=== PATIENT | female | born 1965 | race Caucasian/White ===

== ENCOUNTER 2017-07-31 17:01 | Emergency (ER) | payer BC ==
[2017-07-31 17:31] LABS: HEMATOCRIT 35.2 % (36.0-47.0); HEMOGLOBIN 10.7 g/dL (12.0-15.5); HGB HCT DIFFERENCE -3.1; MEAN CORPUSCULAR HEMOGLOBIN 19.1 pg (27.0-33.4); MEAN CORPUSCULAR HGB CONC 30.3 g/dL (32.0-36.0); MEAN CORPUSCULAR VOLUME 63 fl (80-97); RED BLOOD COUNT 5.59 10^6/uL (3.72-5.28); RED CELL DISTRIBUTION WIDTH 16.4 % (11.5-14.0); WHITE BLOOD COUNT 11.2 10^3/uL (4.0-10.5)
[2017-07-31 17:47] LABS: ALANINE AMINOTRANSFERASE 25 U/L (9-52); ALBUMIN 3.9 g/dL (3.5-5.0); ALKALINE PHOSPHATASE 91 U/L (38-126); ANION GAP 18 (5-19); ASPARTATE AMINO TRANSFERASE 11 U/L (14-36); BAND NEUTROPHILS % (MANUAL) 8 % (3-5); BASOPHILS % (MANUAL) 0 % (0-2); BILIRUBIN,DIRECT 0.5 mg/dL (0.0-0.4); BILIRUBIN,TOTAL 0.8 mg/dL (0.2-1.3); BLOOD UREA NITROGEN 12 mg/dL (7-20); CALCIUM 9.8 mg/dL (8.4-10.2); CARBON DIOXIDE 24 mmol/L (22-30); CHLORIDE 95 mmol/L (98-107); CREATININE RESULT 0.82 mg/dL (0.52-1.25); EOSINOPHILS % (MANUAL) 0 % (0-6); LYMPHOCYTES % (MANUAL) 0 % (13-45); POTASSIUM 4.4 mmol/L (3.6-5.0); SODIUM 136.6 mmol/L (137-145); TOTAL CELLS COUNTED 100; TOTAL PROTEIN 6.4 g/dL (6.3-8.2)
[2017-07-31 17:49] LABS: ANISOCYTOSIS 1+; HYPOCHROMASIA 2+; MICROCYTOSIS 3+; OVALOCYTES 1+; POIKILOCYTOSIS 1+; POLYCHROMASIA SLIGHT
[2017-07-31 17:58] LABS: GLUCOSE 498 mg/dL (75-110)
[2017-07-31] MEDS ORDERED: NORMAL SALINE 1000 ML 1,000 ML IV ONE ×3 (18:38→22:32)
--- NOTE | 2017-07-31 18:42 | ER Document Report ---
ED General <MIN SHEFFIELD - Last Filed: 08/01/17 05:31> - General Mode of Arrival: Wheelchair Information source: Patient <TATI MONTOYAMARY - Last Filed: 08/01/17 18:12> - General Chief Complaint: General Weakness Stated Complaint: BLOOD SUGAR ISSUE Time Seen by Provider: 07/31/17 18:28 Notes: This 51-year-old female patient who takes oral hypoglycemics reports a 5 week or more history of nausea, vomiting, and diarrhea every day throughout the day. She reports she drinks lots of fluids without vomiting but vomits whenever she eats. She also reports that she vomits whenever she tries to swallow her glyburide or metformin. Her blood sugars have been running quite high this entire time. When asked why she has only now come for care, she states because she is stubborn. She has not tried to see her primary care provider. (MIN SHEFFIELD) Patient is a 51 year old female with Type 2 Diabetes presents to the emergency department via EMS complaining of being extremely weak. Patient states that she has been vomiting and has had diarrhea for the past month. Patient states that she decided to come in today because she "felt like she was going to ". Patient states that she she was shaking and could not stand up. Patient states that she also has had an extremely high blood sugar and has been thirsty. Patient states that she has lost around 230 lbs over the years to better control her diabetes. EMS states patients heart rates was 155 and blood sugar was 505. EMS proceeded to give the patient 4 mLs of Zofran and 1L of saline. Patients PCP is Dr. Dia. (PRAVIN MONTOYA) Past Medical History - General Information source: Patient - Social History Smoking Status: Never Smoker Cigarette use (# per day): No Chew tobacco use (# tins/day): No Smoking Education Provided: No Frequency of alcohol use: None Family History: Reviewed & Not Pertinent Past Surgical History: Reports: Hx Tubal Ligation <PRAVIN MONTOYA - Last Filed: 08/01/17 18:12> Review of Systems - Review of Systems Constitutional: See HPI, Weakness EENT: No symptoms reported Cardiovascular: No symptoms reported Respiratory: No symptoms reported Gastrointestinal: See HPI, Diarrhea, Vomiting, Other - increased fluid intake Genitourinary: No symptoms reported Female Genitourinary: No symptoms reported Musculoskeletal: No symptoms reported Skin: No symptoms reported Hematologic/Lymphatic: No symptoms reported Neurological/Psychological: No symptoms reported -: Yes All other systems reviewed and negative <PRAVIN MONTOYA - Last Filed: 08/01/17 18:12> Physical Exam <NETTIEMIN Feldman - Last Filed: 08/01/17 05:31> - General General appearance: Appears well, Alert In distress: None - HEENT Head: Normocephalic, Atraumatic Conjunctiva: Normal Pupils: PERRL Mucous membranes: Dry - Respiratory Respiratory status: No respiratory distress Breath sounds: Normal - Cardiovascular Rhythm: Tachycardia Heart sounds: Normal auscultation - Abdominal Inspection: Obese Distension: No distension Bowel sounds: Normal Tenderness: Nontender Organomegaly: No organomegaly - Back Back: Normal - Extremities General upper extremity: Normal inspection, Normal ROM General lower extremity: Normal inspection, Normal ROM - Neurological Neuro grossly intact: Yes Cognition: Normal Orientation: AAOx4 Anu Coma Scale Eye Opening: Spontaneous Anu Coma Scale Verbal: Oriented Anu Coma Scale Motor: Obeys Commands [place] Coma Scale Total: 15 Speech: Normal - Psychological Associated symptoms: Normal affect, Normal mood - Skin Skin Temperature: Warm Skin Moisture: Dry <PRAVIN MONTOYA - Last Filed: 08/01/17 18:12> - Vital signs Vitals: Resp BP Pulse Ox 18 141/72 H 93 07/31/17 17:09 07/31/17 17:09 07/31/17 17:09 Course - Laboratory Result Diagrams: 07/31/17 17:10 07/31/17 17:10 <MIN SHEFFIELD - Last Filed: 08/01/17 05:31> - Laboratory Result Diagrams: 07/31/17 17:10 07/31/17 17:10 <JANTATIMARY - Last Filed: 08/01/17 18:12> - Re-evaluation Re-evalutation: 07/31/17 22:02 The patient has been here about 5 hours now, has not had any diarrhea or vomiting. She has been drinking plenty of fluids and is urinating now. She did get 3 L of normal saline IV. She did get 4 units of regular insulin and we are checking an Accu-Chek now. 08/01/17 02:37 The patient did eventually have some diarrheal stool, there were no WBCs and negative C. difficile toxins. (MIN SHEFFIELD) - Vital Signs Vital signs: Temp Pulse Resp BP Pulse Ox 98.1 F 142 H 23 H 142/73 H 95 08/01/17 03:14 07/31/17 17:11 08/01/17 03:01 08/01/17 03:01 08/01/17 03:01 - Laboratory Laboratory results interpreted by me: 07/31/17 07/31/17 07/31/17 17:10 17:10 17:10 WBC 11.2 H RBC 5.59 H Hgb 10.7 L Hct 35.2 L MCV 63 L MCH 19.1 L MCHC 30.3 L RDW 16.4 H Seg Neuts % (Manual) 91 H Band Neutrophils % 8 H Lymphocytes % (Manual) 0 L Monocytes % (Manual) 1 L Abs Neuts (Manual) 11.1 H Abs Lymphs (Manual) 0.0 L Sodium 136.6 L Chloride 95 L Glucose 498 H* POC Glucose Hemoglobin A1c % Magnesium 1.2 L* Direct Bilirubin 0.5 H AST 11 L Creatine Kinase 22 L Urine Glucose (UA) Urine Ketones 07/31/17 07/31/17 07/31/17 17:10 17:52 21:25 WBC RBC Hgb Hct MCV MCH MCHC RDW Seg Neuts % (Manual) Band Neutrophils % Lymphocytes % (Manual) Monocytes % (Manual) Abs Neuts (Manual) Abs Lymphs (Manual) Sodium Chloride Glucose POC Glucose 454 H* Hemoglobin A1c % 12.2 H Magnesium Direct Bilirubin AST Creatine Kinase Urine Glucose (UA) >=500 H Urine Ketones 80 H 07/31/17 22:01 WBC RBC Hgb Hct MCV MCH MCHC RDW Seg Neuts % (Manual) Band Neutrophils % Lymphocytes % (Manual) Monocytes % (Manual) Abs Neuts (Manual) Abs Lymphs (Manual) Sodium Chloride Glucose POC Glucose 366 H Hemoglobin A1c % Magnesium Direct Bilirubin AST Creatine Kinase Urine Glucose (UA) Urine Ketones Critical Care Note - Critical Care Note Total time excluding time spent on procedures (mins): 40 <MIN SHEFFIELD - Last Filed: 08/01/17 05:31> Discharge <MIN SHEFFIELD - Last Filed: 08/01/17 05:31> <PRAVIN MONTOYA - Last Filed: 08/01/17 18:12> - Discharge Clinical Impression: Nausea, vomiting and diarrhea, Diabetic gastroparesis associated with type 2 diabetes mellitus, Hypomagnesemia, Poorly controlled diabetes mellitus Hyperglycemia due to type 2 diabetes mellitus Qualifiers: Diabetes mellitus long-term insulin use: without long-term use Qualified Code(s ): E11.65 - Type 2 diabetes mellitus with hyperglycemia Condition: Stable Disposition: HOME, SELF-CARE Additional Instructions: Your blood sugars have been running quite high for several months. The diarrhea did not have any signs of an infectious cause. Your vomiting may be due to diabetic gastroparesis. Take the Reglan as prescribed for nausea, continue to take your regular medications, but cut the tablets into small pieces and take over a period of time with fluids. Follow-up with Dr. Dia Wednesday, take the copies of the lab work with you. RETURN TO THE EMERGENCY ROOM IF ANY NEW OR WORSENING SYMPTOMS. Prescriptions: Metoclopramide HCl [Reglan 10 mg Tablet] 1 tab PO ASDIR PRN #25 tablet PRN Reason: Referrals: JAZMIN DIA MD [Primary Care Provider] - 08/02/17 Scribe Attestation: 07/31/17 20:02 I personally performed the services described in the documentation, reviewed and edited the documentation which was dictated to the scribe in my presence, and it accurately records my words and actions. (MIN SHEFFIELD) Scribe Documentation - Scribe Written by Sen:: Sen Becerra, 07/31/2017 19:15 acting as scribe for :: Nettie <PRAVIN MONTOYA - Last Filed: 08/01/17 18:12>
[2017-07-31 18:46] LABS: ADD ON TESTING BLD IN LAB ACKNOWLEDGE
[2017-07-31 18:59] LABS: CREATINE KINASE 22 U/L (30-135)
[2017-07-31 19:11] LABS: MAGNESIUM 1.2 mg/dL (1.6-2.3)
[2017-07-31] MEDS ORDERED: MAGNESIUM SULFATE INJ 8 MEQ/2 ML IV ONE (19:28)
[2017-07-31] MEDS ORDERED: INSULIN REG, HUMAN 100 UNIT/ML 3 ML VIAL (PYX) IV ONE (19:43)
[2017-07-31] MEDS ORDERED: MAGNESIUM SULFATE/D5W 1 GM/100 ML RTUPB IV ONE ×2 (20:00→22:32)
[2017-07-31 21:56] LABS: APPEARANCE,URINE CLEAR; BILIRUBIN,URINE NEGATIVE (NEGATIVE); GLUCOSE, URINE >=500 mg/dL (NEGATIVE); KETONES,URINE 80 mg/dL (NEGATIVE); LEUKOCYTE ESTERASE,URINE NEGATIVE (NEGATIVE); NITRITE,URINE NEGATIVE (NEGATIVE); PROTEIN,URINE NEGATIVE (NEGATIVE); URINE SPECIFIC GRAVITY 1.028; UROBILINOGEN,URINE NEGATIVE mg/dL (<2.0)
[2017-07-31] MEDS ORDERED: INSULIN GLARGINE,HUM.REC.ANLOG 1,000 UNIT/10 ML UNIT SUBCUT ONE (22:29)
[2017-07-31] MEDS ORDERED: METOCLOPRAMIDE HCL INJ/PF 10 MG/2 ML SDV IV ONE (22:30)
[2017-07-31] MEDS ORDERED: METFORMIN HCL 850 MG TABLET PO ONE (22:31)
[2017-07-31] MEDS ORDERED: METFORMIN HCL 850 MG TABLET ONE (23:20)
[2017-08-01 03:04] VITALS: BP 142/73
--- NOTE | 2017-08-01 09:15 | EKG REPORT ---
SEVERITY:- ABNORMAL ECG - SINUS TACHYCARDIA LEFT ANTERIOR FASCICULAR BLOCK : Confirmed by: Augusta Clark 01-Aug-2017 09:14:43
== END 2017-08-01 03:12 | disposition home or self-care (01) ==
LOC: ER 17:01
DX: R11.2 Nausea with vomiting, unspecified (principal); E11.65 Type 2 diabetes mellitus with hyperglycemia; E11.43 Type 2 diabetes mellitus with diabetic autonomic (poly)neuropathy; K31.84 Gastroparesis; E83.42 Hypomagnesemia; R19.7 Diarrhea, unspecified; R53.1 Weakness; E66.9 Obesity, unspecified; Z79.84 Long term (current) use of oral hypoglycemic drugs; Z79.4 Long term (current) use of insulin
CPT/HCPCS: 93005; 99291; 96361; 96375; 96365; 36415; 87045; 89055; 87205; 82962; 82550; 83735; 85025; 82272; 80053; 81001; 84484; 83036; 87493; 93010; J1815 ×2; J2765; J3490; J3475; J7030

== ENCOUNTER → 2018-01-14 | Outpatient (CLI) | payer BC ==
--- NOTE | 2018-01-14 17:07 | WOMENS IMAGING REPORT ---
EXAM DESCRIPTION: BILAT SCREENING MAMMO W/CAD COMPLETED DATE/TIME: 01/14/2018 2:46 pm REASON FOR STUDY: ROUTINE SCREENING;Z12.31 Z12.31 ENCNTR SCREEN MAMMOGRAM FOR MALIGNANT NEOPLASM OF [place]UB[place] COMPARISON: Multiple since 2009 TECHNIQUE: Standard craniocaudal and mediolateral oblique views of each breast recorded using YouNoodlea l acquisition. LIMITATIONS: None. FINDINGS: Findings present which are benign by mammographic criteria. No suspicious masses, calcifi cations or architectural distortion. Pertinent benign findings: Stable bilateral benign parenchymal and skin calcifications. Read with the assistance of CAD. .[facility] - R2 Cenova Version 1.3 .[facility] - R2 Cenova Version 1.3 .[facility] - R2 Cenova Version 2.4 .[facility] Cenova Version 2.4 .[facility] - R2 Corrugator Operator Helper Version 9.2 Benign mammographic findings may include one or more of the following: Smooth masses, popcorn/rim/co arse calcifications, asymmetries, post-procedure changes, and lesions with long-standing stability. IMPRESSION: BENIGN MAMMOGRAPHIC FINDINGS. BIRADS 2 BREAST DENSITY: b. There are scattered areas of fibroglandular density. BIRAD: 2 BENIGN FINDING(S) RECOMMENDATION: ROUTINE SCREENING Please continue yearly bilateral screening mammography in January 2019 COMMENT: The patient has been notified of the results by letter per MQSA requirements. Additional no tification policies are in place for contacting patient with suspicious or incomplete findings. Quality ID #[id number]: The [employer] recommends an annual screening mammogram for women aged 40 years or over. This facility utilizes a reminder system to ensure that all patients receive reminder letters, and/or direct phone calls for appointments. This includes reminders for routine scr eening mammograms, diagnostic mammograms, or other Breast Imaging Interventions when appropriate. Th is patient will be placed in the appropriate reminder system. The [employer] (ACR) has developed recommendations for screening MRI of the breast s in certain patient populations, to be used in conjunction with mammography. Breast MRI surveillanc e may be appropriate for women with more than 20% lifetime risk of developing breast cancer as deter mined by genetic testing, significant family history of the disease, or history of mantle radiation f or Hodgkins Disease. ACR Practice Guidelines 2008. TECHNICAL DOCUMENTATION: FINDING NUMBER: (1) ASSESSMENT: (1) JOB ID: [id number] APS- All Rights Reserved Reading location - IP/workstation name: [email or web address]
== END ==
LOC: WI 14:22
PROVIDERS: ATTEND Family Medicine
DX: Z12.31 Encounter for screening mammogram for malignant neoplasm of breast (principal)
CPT/HCPCS: 77067

== ENCOUNTER 2018-01-27 10:08 | Emergency (ER) | payer BC ==
[2018-01-27] MEDS ORDERED: NORMAL SALINE 1000 ML 1,000 ML IV ONE ×2 (10:41→12:03)
--- NOTE | 2018-01-27 10:44 | ER Document Report ---
ED Medical Screen (RME) - General Chief Complaint: High Blood Sugar Stated Complaint: BLOOD SUGAR ISSUES Time Seen by Provider: 01/27/18 10:36 Mode of Arrival: Ambulatory Information source: Patient, Relative, [facility] Records Notes: 52-year-old female with a history of hypertension, hyperlipidemia and diabetes presents with concern for elevated blood sugar. Patient reports that for 2 days in a row she has had elevated blood sugar readings. She states today when checked it was 355. She was at work when she became diaphoretic and felt like she was going to pass out. Patient currently complaining of head pressure. She states she has been compliant with her Lantus 42 units in the morning. She states that she has not had any recent illnesses. I have greeted and performed a rapid medical assessment of the patient. A comprehensive evaluation and assessment will be performed by another ED provider. Medical decision making, lab review/xrays if performed will be reviewed by the ED provider assuming care of the patient. PHYSICAL EXAMINATION: GENERAL: Well-appearing, well-nourished and in no acute distress. HEAD: Atraumatic, normocephalic. EYES: Pupils equal round extraocular movements intact, conjunctiva are normal. ENT: Nares patent NECK: Normal range of motion Cardiac: RRR no murmurs LUNGS: No respiratory distress Musculoskeletal: Normal range of motion NEUROLOGICAL: Normal speech, normal gait. PSYCH: Normal mood, normal affect. SKIN: Warm, Dry, normal turgor, no rashes or lesions noted. TRAVEL OUTSIDE OF THE [place] IN LAST 30 DAYS: No - HPI Onset: Just prior to arrival Onset/Duration: Sudden Quality of pain: Pressure Associated Symptoms: Headache, Sweating Exacerbated by: Denies Relieved by: Denies Similar symptoms previously: Yes Recently seen / treated by doctor: Yes - Related Data Smoking: Non-smoker Frequency of alcohol use: None Drug Abuse: None Allergies/Adverse Reactions: codeine Allergy (Verified 01/27/18 10:12) Penicillins Allergy (Verified 01/27/18 10:12) Past Medical History - Social History Chew tobacco use (# tins/day): No Frequency of alcohol use: None Drug Abuse: None - Past Medical History Cardiac Medical History: Reports: Hx Hypercholesterolemia, Hx Hypertension Endocrine Medical History: Reports: Hx Diabetes Mellitus Type 2 Renal/ Medical History: Denies: Hx Peritoneal Dialysis Past Surgical History: Reports: Hx Tubal Ligation Physical Exam - Vital signs Vitals: Temp Pulse Resp BP Pulse Ox 98.1 F 128 H 20 102/54 L 100 01/27/18 10:26 01/27/18 10:01/27/18 10:01/27/18 10:01/27/18 10:26 Course - Vital Signs Vital signs: Temp Pulse Resp BP Pulse Ox 98.1 F 128 H 20 102/54 L 100 01/27/18 10:26 01/27/18 10:26 01/27/18 10:26 01/27/18 10:01/27/18 10:26
[2018-01-27 11:10] LABS: VENOUS BLOOD BASE EXCESS -2.8 mmol/L; VENOUS BLOOD HCO3 23.3 mmol/L (20-32); VENOUS BLOOD PH 7.32 (7.30-7.42)
[2018-01-27 11:11] LABS: ABSOLUTE BASOPHILS # (AUTO) 0.1 10^3/uL (0.0-0.2); ABSOLUTE LYMPHOCYTES (AUTO) 1.3 10^3/uL (0.5-4.7); ABSOLUTE MONOCYTES (AUTO) 0.5 10^3/uL (0.1-1.4); ABSOLUTE NEUT (AUTO) 8.4 10^3/uL (1.7-8.2); BASOPHILS % (AUTO) 0.9 % (0-2); EOSINOPHILS % (AUTO) 0.3 % (0-6); HEMATOCRIT 34.8 % (36.0-47.0); HEMOGLOBIN 10.7 g/dL (12.0-15.5); LYMPHOCYTES % (AUTO) 12.9 % (13-45); MEAN CORPUSCULAR HEMOGLOBIN 19.5 pg (27.0-33.4); MEAN CORPUSCULAR HGB CONC 30.7 g/dL (32.0-36.0); MONOCYTES % (AUTO) 5.3 % (3-13); PLATELET COUNT 330 10^3/uL (150-450); RED BLOOD COUNT 5.47 10^6/uL (3.72-5.28); RED CELL DISTRIBUTION WIDTH 16.8 % (11.5-14.0); SEGMENTED NEUTROPHILS % (AUTO) 80.6 % (42-78); TOTAL CELLS COUNTED % (AUTO) 100 %; WHITE BLOOD COUNT 10.4 10^3/uL (4.0-10.5)
[2018-01-27 11:12] LABS: MEAN CORPUSCULAR VOLUME 64 fl (80-97)
[2018-01-27] MEDS ORDERED: CEFTRIAXONE INJ 1000 MG VIAL IV ONE (11:21)
[2018-01-27] MEDS ORDERED: SULFAMETHOXAZOLE/TRIMETHOPRIM 800-160 MG TABLET PO ONE (11:22)
--- NOTE | 2018-01-27 11:24 | ER Document Report ---
ED Blood Sugar Problem - General Chief Complaint: High Blood Sugar Stated Complaint: BLOOD SUGAR ISSUES Time Seen by Provider: 01/27/18 10:36 Mode of Arrival: Ambulatory Information source: Patient Notes: Patient reports a 2 day history of elevated blood sugar. Patient states today she has had a headache and felt lightheaded. Patient denies any fever nausea or vomiting. Patient states that her blood sugar was 350 yesterday. Patient states that her blood sugar is normally well controlled in the low 100s. Patient additionally complains of an abscess to the left labia for the past 3 days that started to drain yesterday. Patient denies any fever. TRAVEL OUTSIDE OF THE [place] IN LAST 30 DAYS: No - HPI Onset: Other - 2 days Onset/Duration: Persistent Quality of pain: Achy Pain Level: 3 Associated symptoms: Dizziness, Weakness. 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 denies: Fever, Recent illness EENT: No symptoms reported Cardiovascular: Lightheaded. denies: Chest pain Respiratory: No symptoms reported. denies: Cough, Short of breath Gastrointestinal: No symptoms reported. denies: Abdominal pain, Nausea, Vomiting Genitourinary: No symptoms reported Female Genitourinary: No symptoms reported Musculoskeletal: No symptoms reported. denies: Back pain Skin: Other - Abscess to left labia Hematologic/Lymphatic: No symptoms reported Neurological/Psychological: No symptoms reported Physical Exam - Vital signs Vitals: Temp Pulse Resp BP Pulse Ox 98.1 F 128 H 20 102/54 L 100 01/27/18 10:26 01/27/18 10:26 01/27/18 10:26 01/27/18 10:26 01/27/18 10:26 - General General appearance: Appears well, Alert In distress: None - HEENT Head: Normocephalic, Atraumatic Eyes: Normal Conjunctiva: Normal Nasal: Normal Mouth/Lips: Normal Mucous membranes: Normal Neck: Normal - Respiratory Respiratory status: No respiratory distress Chest status: Nontender Breath sounds: Normal. No: Rales, Rhonchi, Stridor, Wheezing Chest palpation: Normal - Cardiovascular Rhythm: Tachycardia Heart sounds: S1 appreciated, S2 appreciated Murmur: No - Abdominal Inspection: Normal Distension: No distension Tenderness: Nontender - Back Back: Normal, Nontender - Extremities General upper extremity: Normal inspection, Normal ROM General lower extremity: Normal inspection, Normal ROM - Neurological Neuro grossly intact: Yes Cognition: Normal Anu Coma Scale Eye Opening: Spontaneous [place] Coma Scale Verbal: Oriented [place] Coma Scale Motor: Obeys Commands Anu Coma Scale Total: 15 - Psychological Associated symptoms: Normal affect, Normal mood - Skin Skin Temperature: Warm Skin Moisture: Dry Skin irregularity: other - Abscess to the left labia, skin with surrounding erythema concerning for developing cellulitis, skin indurated with open center consistent with patient's history of drainage from the lesion Irregularity with: Swelling, Tenderness, Inflammation Course - Re-evaluation Re-evalutation: 01/27/18 12:50 Discussed patient's diagnostic workup at this time. Patient's first liter of IV fluids infusing. Patient denies any previous history of any renal function abnormality. Patient states she does have an order for outpatient labs to follow-up with her primary doctor. 01/27/18 14:10 Urinalysis reviewed, patient is currently on her menstrual cycle and had a clean -catch specimen collected. Patient denies any urinary symptoms. 01/27/18 14:13 Suspect that patient's had poor glycemic control due to abscess. Abscess has mild surrounding erythema concerning for developing cellulitis. Area is indurated, no central area of fluctuance. Abscess does have the appearance that it has recently drained and does appear to be improving. Patient nontoxic in appearance. Good return precautions given. - Vital Signs Vital signs: Temp Pulse Resp BP Pulse Ox 97.9 F 98 18 99/52 L 100 01/27/18 14:31 01/27/18 14:31 01/27/18 14:31 01/27/18 14:31 01/27/18 14:31 - Laboratory Result Diagrams: 01/27/18 10:50 01/27/18 10:50 Laboratory results interpreted by me: 01/27/18 01/27/18 01/27/18 10:31 10:50 10:50 RBC 5.47 H Hgb 10.7 L Hct 34.8 L MCV 64 L MCH 19.5 L MCHC 30.7 L RDW 16.8 H Seg Neutrophils % 80.6 H Lymphocytes % 12.9 L Absolute Neutrophils 8.4 H BUN 31 H Creatinine 1.34 H Est GFR ( Amer) 51 L Est GFR (Non-Af Amer) 42 L Glucose 373 H POC Glucose 355 H Urine Glucose (UA) Urine Blood Ur Leukocyte Esterase 01/27/18 13:20 RBC Hgb Hct MCV MCH MCHC RDW Seg Neutrophils % Lymphocytes % Absolute Neutrophils BUN Creatinine Est GFR ( Amer) Est GFR (Non-Af Amer) Glucose POC Glucose Urine Glucose (UA) 150 H Urine Blood LARGE H Ur Leukocyte Esterase TRACE H Discharge - Discharge Clinical Impression: Elevated blood sugar, Abscess, Abnormal renal function test Anemia Qualifiers: Anemia type: unspecified type Qualified Code(s): D64.9 - Anemia, unspecified Condition: Stable Disposition: HOME, SELF-CARE Instructions: Abscess ([facility]), Anemia ([facility]), Cephalexin ([facility]), Hyperglycemia ([facility] ), Trimethoprim-Sulfa ([facility]) Additional Instructions: Return immediately for any new or worsening symptoms Followup with your primary care provider, call tomorrow to make a followup appointment Your renal function test was abnormal today. You will need to see her primary doctor to have this test rechecked. Be sure to stay well-hydrated. Prescriptions: Cephalexin Monohydrate [Keflex 500 mg Capsule] 500 mg PO Q6H 7 Days capsule Sulfamethoxazole/Trimethoprim [Bactrim Ds Tablet] 1 each PO BID #20 tablet Forms: Return to Work Referrals: JAZMIN ANAYA MD [Primary Care Provider] - Follow up tomorrow
[2018-01-27 11:38] LABS: ANISOCYTOSIS 1+; HYPOCHROMASIA 2+; OVALOCYTES 1+; PLATELET COMMENT ADEQUATE; POIKILOCYTOSIS 1+
[2018-01-27 11:41] LABS: ALANINE AMINOTRANSFERASE 28 U/L (9-52); ALBUMIN 4.6 g/dL (3.5-5.0); ALKALINE PHOSPHATASE 90 U/L (38-126); ANION GAP 14 (5-19); ASPARTATE AMINO TRANSFERASE 23 U/L (14-36); BILIRUBIN,DIRECT 0.3 mg/dL (0.0-0.4); BILIRUBIN,TOTAL 0.5 mg/dL (0.2-1.3); BLOOD UREA NITROGEN 31 mg/dL (7-20); CALCIUM 10.1 mg/dL (8.4-10.2); CARBON DIOXIDE 26 mmol/L (22-30); CHLORIDE 98 mmol/L (98-107); GLUCOSE 373 mg/dL (75-110); POTASSIUM 4.2 mmol/L (3.6-5.0); SODIUM 137.5 mmol/L (137-145); TOTAL PROTEIN 7.7 g/dL (6.3-8.2)
[2018-01-27] MEDS ORDERED: INSULIN REG, HUMAN 100 UNIT/ML 3 ML VIAL (PYX) SUBCUT ONE (12:03)
[2018-01-27 13:59] LABS: APPEARANCE,URINE SLIGHTLY-CLOUDY; BILIRUBIN,URINE NEGATIVE (NEGATIVE); COLOR,URINE YELLOW; GLUCOSE, URINE 150 mg/dL (NEGATIVE); KETONES,URINE NEGATIVE (NEGATIVE); LEUKOCYTE ESTERASE,URINE TRACE (NEGATIVE); NITRITE,URINE NEGATIVE (NEGATIVE); PROTEIN,URINE NEGATIVE (NEGATIVE); URINE SPECIFIC GRAVITY 1.008; UROBILINOGEN,URINE NEGATIVE mg/dL (<2.0)
[2018-01-27 14:34] VITALS: BP 99/52
[2018-01-28 09:02] LABS: PATH REVIEW PATHOLOGIST REVIEWED
== END 2018-01-27 14:38 | disposition home or self-care (01) ==
LOC: ER 10:08
DX: E11.65 Type 2 diabetes mellitus with hyperglycemia (principal); N76.4 Abscess of vulva; D64.9 Anemia, unspecified; R94.4 Abnormal results of kidney function studies; I10 Essential (primary) hypertension; R00.0 Tachycardia, unspecified; R51 Headache; R42 Dizziness and giddiness; R53.1 Weakness; Z88.0 Allergy status to penicillin; Z88.5 Allergy status to narcotic agent
CPT/HCPCS: 99284; 96361; 96365; 36415; 82962; 85025; 80053; 81001; 82803; J1815; J0696; J7030

== ENCOUNTER 2019-08-02 07:44 | Emergency (ER) | payer BC ==
[2019-08-02] MEDS ORDERED: NORMAL SALINE 1000 ML 1,000 ML IV ONE ×2 (08:09→09:59)
[2019-08-02] MEDS ORDERED: ONDANSETRON 4 MG TAB.RAPDIS PO ONE (08:18)
--- NOTE | 2019-08-02 08:26 | ER Document Report ---
ED General - General Chief Complaint: Flu Symptoms Stated Complaint: FLU SYMPTOMS/BLOOD SUGAR ISSUES Time Seen by Provider: 08/02/19 08:06 Primary Care Provider: JAZMIN ANAYA MD [Primary Care Provider] - Follow up in 3-5 days Notes: 53-year-old female with past medical history of diabetes on insulin presents for flulike symptoms for 2 weeks. Patient states her granddaughter had similar symptoms and "passed it on to her". Patient states she has nausea/vomiting/diarrhea, generalized body aches, nasal/chest congestion, coughing with phlegm, fever. Last emesis this morning. T-max 102 approximately 1 week ago. Patient has not taken any medication for any of her symptoms. Patient also reports that her blood sugar was high today. Patient denies any abdominal pain, hematuria, dysuria, frequency or blood in stool/emesis. TRAVEL OUTSIDE OF THE [place] IN LAST 30 DAYS: No - Related Data Allergies/Adverse Reactions: codeine Allergy (Verified 01/27/18 10:12) orange juice Allergy (Verified 08/02/19 11:00) Penicillins Allergy (Verified 01/27/18 10:12) Sulfa (Sulfonamide Antibiotics) Allergy (Verified 08/02/19 08:25) Past Medical History - Social History Smoking Status: Current Every Day Smoker Family History: Reviewed & Not Pertinent - Past Medical History Cardiac Medical History: Reports: Hx Hypercholesterolemia, Hx Hypertension Endocrine Medical History: Reports: Hx Diabetes Mellitus Type 2 Renal/ Medical History: Denies: Hx Peritoneal Dialysis Past Surgical History: Reports: Hx Tubal Ligation Review of Systems - Review of Systems Notes: Constitutional: Positive for fever. HENT: Positive for sore throat. Eyes: Negative for visual changes. Cardiovascular: Negative for chest pain. Respiratory: Positive for cough. Negative for shortness of breath. Gastrointestinal: Positive for nausea, vomiting, diarrhea. Negative for abdominal pain. Genitourinary: Negative for dysuria. Musculoskeletal: Positive for generalized body aches. Negative for back pain. Skin: Negative for rash. Neurological: Positive for headache. Negative for weakness or numbness. 10 point ROS negative except as marked above and in HPI. Physical Exam - Vital signs Vitals: Temp Pulse Resp BP Pulse Ox 97.8 F 124 H 20 99/62 L 95 08/02/19 07:48 08/02/19 07:48 08/02/19 07:48 08/02/19 07:48 08/02/19 07:48 - Notes Notes: GENERAL: Well-appearing, well-nourished and in no acute distress. HEAD: Atraumatic, normocephalic. EYES: Pupils equal round and reactive to light, extraocular movements intact, sclera anicteric, conjunctiva are normal. ENT: TMs normal, nares patent, oropharynx clear without exudates/erythema. No trismus. No muffled voice. Uvula midline without swelling. No tonsillar hypertrophy. Moist mucous membranes. NECK: Normal range of motion, supple without lymphadenopathy or JVD. LUNGS: Breath sounds clear to auscultation bilaterally and equal. No wheezes rales or rhonchi. Dry cough. HEART: Tachycardic. No murmurs, rubs or gallops. ABDOMEN: Soft, nontender. No guarding, no rebound. No masses appreciated. EXTREMITIES: Normal range of motion, no pitting or edema. No clubbing or cyanosis. NEUROLOGICAL: Cranial nerves II through XII grossly intact. Normal speech, normal gait. PSYCH: Normal mood, normal affect. SKIN: Warm, Dry, normal turgor, no rashes or lesions noted. Course - Re-evaluation Re-evalutation: 08/02/19 53 y/o female presents with flu like symptoms for 2 weeks. Pt has sick contacts at home. Pt also has elevated blood sugar. DM on insulin (Lantus). Nontoxic, well appearing. Abdomen soft, nontender. PE otherwise unremarkable. Pt is tachycardic and mildly hypotensive. Workup to include CBC, CMP, lipase, flu test, UA, CXR, EKG, and lactic initiated. 1 bolus of NS ordered and zofran. 08/02/19 10:25 Accucheck 264 after 1 L of NS. Insulin 5 units ordered. 08/02/19 12:29 Vitals currently: HR 98, SpO2 97% on RA, Accucheck 242. 08/02/19 12:32 Discussed results with pt and pt's . Return precautions discussed/given. Close follow up given with PCP. All questions/concerns addressed prior to discharge. - Vital Signs Vital signs: Temp Pulse Resp BP Pulse Ox 98.6 F 124 H 14 117/73 99 08/02/19 10:40 08/02/19 07:48 08/02/19 10:31 08/02/19 10:31 08/02/19 11:03 - Laboratory Result Diagrams: 08/02/19 08:34 08/02/19 08:34 Laboratory results interpreted by me: 08/02/19 08/02/19 08/02/19 07:51 08:34 08:34 WBC 16.4 H RBC 5.70 H Hgb 10.7 L Hct 35.0 L MCV 61 L MCH 18.8 L MCHC 30.7 L RDW 16.6 H Lymph % (Auto) 6.7 L Absolute Neuts (auto) 14.3 H Seg Neutrophils % 87.0 H VBG pH Sodium 136.1 L Potassium 3.0 L* Chloride 92 L BUN 34 H Creatinine 1.58 H Est GFR ( Amer) 42 L Est GFR (MDRD) Non-Af 34 L Glucose 281 H POC Glucose 249 H Urine Glucose (UA) Urine Ketones 08/02/19 08/02/19 08/02/19 08:34 10:19 10:22 WBC RBC Hgb Hct MCV MCH MCHC RDW Lymph % (Auto) Absolute Neuts (auto) Seg Neutrophils % VBG pH 7.45 H Sodium Potassium Chloride BUN Creatinine Est GFR ( Amer) Est GFR (MDRD) Non-Af Glucose POC Glucose 264 H Urine Glucose (UA) >=500 H Urine Ketones 20 H 08/02/19 12:26 WBC RBC Hgb Hct MCV MCH MCHC RDW Lymph % (Auto) Absolute Neuts (auto) Seg Neutrophils % VBG pH Sodium Potassium Chloride BUN Creatinine Est GFR ( Amer) Est GFR (MDRD) Non-Af Glucose POC Glucose 242 H Urine Glucose (UA) Urine Ketones Discharge - Discharge Clinical Impression: Left lower lobe pneumonia Qualifiers: Pneumonia type: due to unspecified organism Qualified Code(s): J18.9 - Pneumonia, unspecified organism Condition: Stable Disposition: HOME, SELF-CARE Instructions: Pneumonia ([facility]) Additional Instructions: Please take antibiotics (Levaquin) as prescribed and finish all doses even if you feel better. Alternate Tylenol/Motrin every 3 hours for fever/pain. Follow up with your primary care doctor in 3 days. Return to ER for any worsening symptoms, including worsening pain, worsening cough, fever, difficulty breathing, or any other symptoms that are concerning to you. Prescriptions: Benzonatate [Tessalon Perles 100 mg Capsule] 100 mg PO Q8HP PRN #40 capsule PRN Reason: Levofloxacin [Levaquin 750 mg Tablet] 750 mg PO DAILY #5 tablet Forms: Parent Work Note Referrals: JAZMIN ANAYA MD [Primary Care Provider] - Follow up in 3-5 days
[2019-08-02 09:10] LABS: ABSOLUTE LYMPHOCYTES (AUTO) 1.1 10^3/uL (0.5-4.7); ABSOLUTE NEUT (AUTO) 14.3 10^3/uL (1.7-8.2); BASOPHILS % (AUTO) 0.3 % (0-2); EOSINOPHILS % (AUTO) 0.1 % (0-6); HEMOGLOBIN 10.7 g/dL (12.0-15.5); LYMPHOCYTES % (AUTO) 6.7 % (13-45); MEAN CORPUSCULAR HEMOGLOBIN 18.8 pg (27.0-33.4); MEAN CORPUSCULAR HGB CONC 30.7 g/dL (32.0-36.0); MONOCYTES % (AUTO) 5.9 % (3-13); PLATELET COUNT 379 10^3/uL (150-450); RED CELL DISTRIBUTION WIDTH 16.6 % (11.5-14.0); TOTAL CELLS COUNTED % (AUTO) 100 %; WHITE BLOOD COUNT 16.4 10^3/uL (4.0-10.5)
--- NOTE | 2019-08-02 09:10 | RADIOLOGY REPORT (SQ) ---
EXAM DESCRIPTION: CHEST 2 VIEWS COMPLETED DATE/TIME: 08/02/2019 8:58 am REASON FOR STUDY: flu like symptoms COMPARISON: None. EXAM PARAMETERS: NUMBER OF VIEWS: two views TECHNIQUE: Digital Frontal and Lateral radiographic views of the chest acquired. RADIATION DOSE: NA LIMITATIONS: none FINDINGS: LUNGS AND PLEURA: Acute asymmetric opacity in the medial basal segment of the left lower l obe. There is no pleural effusion or pneumothorax. MEDIASTINUM AND HILAR STRUCTURES: No mediastinal or hilar contour abnormality. HEART AND VASCULAR STRUCTURES: The cardiac silhouette and pulmonary vasculature are within normal lacy its. BONES: No acute findings. HARDWARE: None in the chest. OTHER: No other finding. IMPRESSION: Acute asymmetric opacity in the medial basal segment of the left lower lobe. Clinical c orrelation for signs and symptoms of pneumonia is recommended. TECHNICAL DOCUMENTATION: JOB ID: [id number]- All Rights Reserved Reading location - IP/workstation name: [email or web address]
[2019-08-02 09:14] LABS: MEAN CORPUSCULAR VOLUME 61 fl (80-97)
[2019-08-02 09:21] LABS: A TYPE INFLUENZA AG NEGATIVE (NEGATIVE); B INFLUENZA AG NEGATIVE (NEGATIVE)
[2019-08-02 09:30] LABS: ANISOCYTOSIS 1+; HYPOCHROMASIA SLIGHT; OVALOCYTES 1+; PLATELET LARGE PRESENT; POIKILOCYTOSIS SLIGHT; POLYCHROMASIA SLIGHT; TOXIC GRANULATION 1+
[2019-08-02 09:31] LABS: PLATELET COMMENT ADEQUATE
[2019-08-02 09:50] LABS: ALBUMIN 4.1 g/dL (3.5-5.0); ALKALINE PHOSPHATASE 80 U/L (38-126); ANION GAP 14 (5-19); ASPARTATE AMINO TRANSFERASE 17 U/L (14-36); BILIRUBIN,DIRECT 0.2 mg/dL (0.0-0.4); BILIRUBIN,TOTAL 0.7 mg/dL (0.2-1.3); BLOOD UREA NITROGEN 34 mg/dL (7-20); CALCIUM 9.9 mg/dL (8.4-10.2); CARBON DIOXIDE 30 mmol/L (22-30); CHLORIDE 92 mmol/L (98-107); GLUCOSE 281 mg/dL (75-110); TOTAL PROTEIN 7.4 g/dL (6.3-8.2)
[2019-08-02] MEDS ORDERED: POTASSIUM CHLORIDE 20 MEQ PACKET PO ONE (09:57)
[2019-08-02 10:23] LABS: VENOUS BLOOD BASE EXCESS 5.9 mmol/L; VENOUS BLOOD HCO3 30.8 mmol/L (20-32); VENOUS BLOOD PCO2 45.4 mmHg (35-63); VENOUS BLOOD PH 7.45 (7.30-7.42)
[2019-08-02] MEDS ORDERED: INSULIN REG, HUMAN 100 UNIT/ML 3 ML VIAL (PYX) IV ONE (10:25)
[2019-08-02 11:07] LABS: APPEARANCE,URINE CLEAR; BILIRUBIN,URINE NEGATIVE (NEGATIVE); COLOR,URINE YELLOW; GLUCOSE, URINE >=500 mg/dL (NEGATIVE); KETONES,URINE 20 mg/dL (NEGATIVE); LEUKOCYTE ESTERASE,URINE NEGATIVE (NEGATIVE); NITRITE,URINE NEGATIVE (NEGATIVE); PROTEIN,URINE NEGATIVE (NEGATIVE); URINE SPECIFIC GRAVITY 1.013; UROBILINOGEN,URINE NEGATIVE mg/dL (<2.0)
[2019-08-02 12:54] VITALS: BP 116/71
--- NOTE | 2019-08-02 13:34 | EKG REPORT ---
SEVERITY:- ABNORMAL ECG - SINUS TACHYCARDIA LEFT ANTERIOR FASCICULAR BLOCK ABNRM R PROG, CONSIDER ASMI OR LEAD PLACEMENT : Confirmed by: Gerardo Corrales MD 02-Aug-2019 13:34:33
[2019-08-03 13:41] LABS: PATH REVIEW PATHOLOGIST REVIEWED
== END 2019-08-02 12:43 | disposition home or self-care (01) ==
LOC: ER 07:44
DX: J18.9 Pneumonia, unspecified organism (principal); E11.65 Type 2 diabetes mellitus with hyperglycemia; Z79.4 Long term (current) use of insulin; R19.7 Diarrhea, unspecified; R09.81 Nasal congestion; R09.89 Other specified symptoms and signs involving the circulatory and respiratory systems; R05 Cough; R51 Headache; R50.9 Fever, unspecified; I10 Essential (primary) hypertension; F17.200 Nicotine dependence, unspecified, uncomplicated; Z88.5 Allergy status to narcotic agent; Z91.018 Allergy to other foods; Z88.0 Allergy status to penicillin; Z88.2 Allergy status to sulfonamides
CPT/HCPCS: 93005; 36415; 82962; 83605; 83690; 83735; 85025; 80053; 81001; 82803; 87804; 71046; 93010; S0119; J1815; J7030; J3490; 96360; 96361; 99284

== ENCOUNTER 2020-04-22 11:17 | Inpatient (IN) | payer BC ==
[~2020-04-22 11:17] MED LIST: PHENYLEPHRINE HCL INJ/PF 10 MG/1 ML SDV ONE
--- NOTE | 2020-04-22 11:24 | ER Document Report ---
ED Medical Screen (RME) - General Chief Complaint: Syncope Stated Complaint: SYNCOPE Time Seen by Provider: 04/22/20 11:22 Primary Care Provider: JAZMIN ANAYA MD [Primary Care Provider] - Follow up as needed Mode of Arrival: Wheelchair Information source: Patient Notes: 54-year-old female presented to ED. Unconscious when I first saw her, after sternal rub she was able to answer questions. Her pulse is 136 blood pressure 98/65 with O2 sat of 100 and temp of 98.4. She does have diabetes. She states she also has a large abscess to her left thigh. She states she feels so weak she keeps passing out and cannot hold her head up. I have greeted and performed a rapid initial assessment of this patient. A comprehensive ED assessment and evaluation of the patient, analysis of test results and completion of medical decision making process will be conducted by an additional ED providers. TRAVEL OUTSIDE OF THE [place] IN LAST 30 DAYS: No - Related Data Allergies/Adverse Reactions: codeine Allergy (Verified 04/22/20 11:21) orange juice Allergy (Verified 04/22/20 11:21) Penicillins Allergy (Verified 04/22/20 11:21) Sulfa (Sulfonamide Antibiotics) Allergy (Verified 04/22/20 11:21) Past Medical History - Past Medical History Cardiac Medical History: Reports: Hx Hypercholesterolemia, Hx Hypertension Endocrine Medical History: Reports: Hx Diabetes Mellitus Type 2 Renal/ Medical History: Denies: Hx Peritoneal Dialysis Past Surgical History: Reports: Hx Tubal Ligation Doctor's Discharge - Discharge Referrals: JAZMIN ANAYA MD [Primary Care Provider] - Follow up as needed
[2020-04-22] MEDS ORDERED: NORMAL SALINE 1000 ML 1,000 ML IV ONE ×2 (11:25→12:56)
[2020-04-22] MEDS ORDERED: ONDANSETRON HCL INJ/PF 4 MG/2 ML SDV IV ONE (12:02)
[2020-04-22] MEDS ORDERED: FENTANYL CITRATE INJ/PF 100 MCG/2 ML AMPUL IV ONE (12:03)
[2020-04-22 12:04] LABS: HEMATOCRIT 33.2 % (36.0-47.0); MEAN CORPUSCULAR HEMOGLOBIN 19.2 pg (27.0-33.4); PLATELET COUNT 390 10^3/uL (150-450); RED BLOOD COUNT 5.19 10^6/uL (3.72-5.28); RED CELL DISTRIBUTION WIDTH 16.9 % (11.5-14.0); WHITE BLOOD COUNT 19.7 10^3/uL (4.0-10.5)
[2020-04-22] MEDS ORDERED: CLINDAMYCIN 600 MG/D5W RTU 600 MG/50 ML RTUPB IV ONE (12:10)
[2020-04-22 12:11] LABS: MEAN CORPUSCULAR VOLUME 64 fl (80-97)
[2020-04-22 12:27] LABS: ALBUMIN 3.7 g/dL (3.5-5.0); ALKALINE PHOSPHATASE 95 U/L (38-126); ASPARTATE AMINO TRANSFERASE 16 U/L (14-36); BILIRUBIN,DIRECT 0.1 mg/dL (0.0-0.4); BILIRUBIN,TOTAL 0.7 mg/dL (0.2-1.3); BLOOD UREA NITROGEN 25 mg/dL (7-20); CALCIUM 9.3 mg/dL (8.4-10.2); CARBON DIOXIDE 13 mmol/L (22-30); CREATINE KINASE 157 U/L (30-135); POTASSIUM 5.5 mmol/L (3.6-5.0); TOTAL PROTEIN 6.5 g/dL (6.3-8.2)
[2020-04-22 12:29] LABS: ABSOLUTE LYMPHOCYTES# (MANUAL) 0.8 10^3/uL (0.5-4.7); BASOPHILS % (MANUAL) 0 % (0-2); EOSINOPHILS % (MANUAL) 0 % (0-6); LYMPHOCYTES % (MANUAL) 4 % (13-45); MONOCYTES % (MANUAL) 10 % (3-13); SEGMENTED NEUTROPHILS % (MAN) 86 % (42-78); TOTAL CELLS COUNTED 100
[2020-04-22 12:30] LABS: OVALOCYTES SLIGHT; PLATELET CLUMPS PRESENT; PLATELET COMMENT ADEQUATE; POIKILOCYTOSIS SLIGHT
[2020-04-22 12:32] LABS: ANION GAP 19 (5-19); CHLORIDE 97 mmol/L (98-107)
[2020-04-22 12:39] LABS: GLUCOSE 479 mg/dL (75-110)
--- NOTE | 2020-04-22 13:13 | ER Document Report ---
Entered by LUMA PHELPS SCRIBE 04/22/20 1158 Acting as scribe for:MIN SHEFFIELD MD ED General - General Chief Complaint: Syncope Stated Complaint: SYNCOPE Time Seen by Provider: 04/22/20 11:22 Mode of Arrival: Wheelchair Information source: Patient Notes: This 54 year old patient with IDDM presents to the emergency department today with complains of nausea and a "boil" on her right inner thigh. Nursing notes mention that the patient was minimally responsive and refusing to move herself from wheelchair to stretcher stating that she couldn't move, which all seems to be just lack of cooperation. She reports that this "boil" has been present for five days and has increased in size since onset. Patient is on lasix because "lantus makes her swell". She is nauseated but denies vomiting. TRAVEL OUTSIDE OF THE [place] IN LAST 30 DAYS: No - Related Data Allergies/Adverse Reactions: codeine Allergy (Verified 04/22/20 11:21) orange juice Allergy (Verified 04/22/20 11:21) Penicillins Allergy (Verified 04/22/20 11:21) Sulfa (Sulfonamide Antibiotics) Allergy (Verified 04/22/20 11:21) Home Medications: diabetes Past Medical History - General Information source: Patient - Social History Smoking Status: Former Smoker Cigarette use (# per day): No Chew tobacco use (# tins/day): No Frequency of alcohol use: None Drug Abuse: None Lives with: Family Family History: Reviewed & Not Pertinent Patient has homicidal ideation: No - Past Medical History Cardiac Medical History: Reports: Hx Hypercholesterolemia, Hx Hypertension Endocrine Medical History: Reports: Hx Diabetes Mellitus Type 2 Past Surgical History: Reports: Hx Tubal Ligation Review of Systems - Review of Systems Constitutional: See HPI, Other - decreased appetite EENT: No symptoms reported Cardiovascular: No symptoms reported Respiratory: No symptoms reported Gastrointestinal: See HPI, Nausea. denies: Vomiting Genitourinary: No symptoms reported Female Genitourinary: No symptoms reported Musculoskeletal: No symptoms reported Skin: See HPI, Lesions - right inner thigh Hematologic/Lymphatic: No symptoms reported Neurological/Psychological: No symptoms reported -: Yes All other systems reviewed and negative Physical Exam - Vital signs Vitals: Temp 98.4 F 04/22/20 11:21 - Notes Notes: Physical Exam: General: Alert, strong ketone odor on breath. HEENT: Normocephalic. Atraumatic. PERRL. Extraocular movements intact. Oropharynx clear. Lips are cracked, very dry oral mucosa. Neck: Supple. Non-tender. Respiratory: No respiratory distress. Clear and equal breath sounds bilaterally. Cardiovascular: Tachycardic, regular rhythm. Abdominal: Obese. Non-tender. No distension. Normal Bowel Sounds. Back: No gross abnormalities. Extremities: Moves all four extremities. Upper extremities: Normal inspection. Normal ROM. Lower extremities: Normal inspection. No edema. Normal ROM. Neurological: Normal cognition. AAOx4. Normal speech. Psychological: Normal affect. Normal Mood. Skin: Right medial proximal thigh near the perineum there is an area of erythema and swelling with tenderness on palpation. Course - Vital Signs Vital signs: Temp Pulse Resp BP Pulse Ox 98.4 F 136 H 22 H 120/68 98 04/22/20 11:25 04/22/20 11:25 04/22/20 16:30 04/22/20 16:30 04/22/20 16:30 - Laboratory Result Diagrams: 04/22/20 11:46 04/22/20 17:58 Laboratory results interpreted by me: 04/22/20 04/22/20 04/22/20 11:30 11:46 11:46 WBC 19.7 H Hgb 10.0 L Hct 33.2 L MCV 64 L MCH 19.2 L MCHC 30.0 L RDW 16.9 H Seg Neuts % (Manual) 86 H Lymphocytes % (Manual) 4 L Abs Neuts (Manual) 16.9 H Abs Monocytes (Manual) 2.0 H Carbonic Acid ABG pH ABG pCO2 ABG HCO3 ABG Total CO2 Sodium 129.0 L Potassium 5.5 H Chloride 97 L Carbon Dioxide 13 L BUN 25 H Est GFR ( Amer) 55 L Est GFR (MDRD) Non-Af 45 L Glucose 479 H* POC Glucose 519 H* Hemoglobin A1c % Creatine Kinase 157 H Urine Glucose (UA) Urine Ketones 04/22/20 04/22/20 04/22/20 11:46 13:19 13:39 WBC Hgb Hct MCV MCH MCHC RDW Seg Neuts % (Manual) Lymphocytes % (Manual) Abs Neuts (Manual) Abs Monocytes (Manual) Carbonic Acid 0.67 L ABG pH 7.34 L ABG pCO2 22.1 L ABG HCO3 11.6 L ABG Total CO2 12.3 L Sodium Potassium Chloride Carbon Dioxide BUN Est GFR ( Amer) Est GFR (MDRD) Non-Af Glucose POC Glucose Hemoglobin A1c % 12.8 H Creatine Kinase Urine Glucose (UA) >=500 H Urine Ketones 20 H 04/22/20 14:30 WBC Hgb Hct MCV MCH MCHC RDW Seg Neuts % (Manual) Lymphocytes % (Manual) Abs Neuts (Manual) Abs Monocytes (Manual) Carbonic Acid ABG pH ABG pCO2 ABG HCO3 ABG Total CO2 Sodium Potassium Chloride Carbon Dioxide BUN Est GFR ( Amer) Est GFR (MDRD) Non-Af Glucose POC Glucose 458 H* Hemoglobin A1c % Creatine Kinase Urine Glucose (UA) Urine Ketones - EKG Interpretation by Me EKG shows normal: Sinus rhythm, [place], Intervals. abnormal: QRS Complexes - Consider right ventricular hypertrophy, ST-T Waves - Borderline inferior T abnormalities Rate: Tachycardia - 131 - Consults Dr. Dupont Time consulted: 14:10 Consulted provider: will come to ER Critical Care Note - Critical Care Note Total time excluding time spent on procedures (mins): 35 Comments: At least 35 minutes spent evaluating the patient getting history and doing physical exam. Managing her tachycardia and hypotension. Managing the dehydration, DKA, chronically poorly controlled diabetes which is acutely worse due to the perineal abscess patient is developing. Consultations with general surgery and the admitting hospitalist. Discharge - Discharge Clinical Impression: Perineal abscess, Poorly controlled diabetes mellitus, Tachycardia, Hypo natremia, Hyperkalemia Leukocytosis Qualifiers: Leukocytosis type: unspecified Qualified Code(s): D72.829 - Elevated white blood cell count, unspecified Hypotension Qualifiers: Hypotension type: unspecified hypotension type Qualified Code(s): I95.9 - Hypotension, unspecified Hyperglycemia due to type 2 diabetes mellitus Qualifiers: Diabetes mellitus assistant terminal manager insulin use: with detention use Qualified Code(s): E11.65 - Type 2 diabetes mellitus with hyperglycemia Condition: Good Disposition: ADMITTED INPATIENT Admitting Provider: Cresencio (Hospitalist) Unit Admitted: IMCU I personally performed the services described in the documentation, reviewed and edited the documentation which was dictated to the scribe in my presence, and it accurately records my words and actions.
[2020-04-22 13:17] LABS: CREATINE KINASE MB 1.35 ng/mL (<4.55)
[2020-04-22 13:20] LABS: TROPONIN I < 0.012 ng/mL
[2020-04-22] MEDS ORDERED: INSULIN REG, HUMAN 100 UNIT/ML 3 ML VIAL (PYX) IV ONE ×3 (13:29→17:15)
[2020-04-22 13:52] LABS: APPEARANCE,URINE CLEAR; BILIRUBIN,URINE NEGATIVE (NEGATIVE); COLOR,URINE STRAW; GLUCOSE, URINE >=500 mg/dL (NEGATIVE); KETONES,URINE 20 mg/dL (NEGATIVE); LEUKOCYTE ESTERASE,URINE NEGATIVE (NEGATIVE); NITRITE,URINE NEGATIVE (NEGATIVE); PROTEIN,URINE NEGATIVE (NEGATIVE); URINE SPECIFIC GRAVITY 1.009; UROBILINOGEN,URINE NEGATIVE mg/dL (<2.0)
[2020-04-22 14:05] LABS: ARTERIAL BLOOD BASE EXCESS -12.7 mmol/L; ARTERIAL BLOOD H2CO3 0.67 mmol/L (1.05-1.35); ARTERIAL BLOOD HCO3 11.6 mmol/L (20-24); ARTERIAL BLOOD O2 SATURATION 96.6 % (94-98); ARTERIAL BLOOD PCO2 22.1 mmHg (35-45); ARTERIAL BLOOD PH 7.34 (7.35-7.45); ARTERIAL BLOOD PO2 89.1 mmHg (80-100); ARTERIAL BLOOD TOTAL CO2 12.3 mmol/L (21-25)
[2020-04-22 14:06] LABS: ARTERIAL BLOOD FIO2 ROOM AIR
[2020-04-22] MEDS ORDERED: GLUCAGON,HUMAN RECOMB 1 MG INJ SUBCUT PRN (14:57)
[2020-04-22] MEDS ORDERED: ONDANSETRON HCL INJ/PF 4 MG/2 ML SDV IV PRN (14:57)
[2020-04-22] MEDS ORDERED: DEXTROSE 40% GEL 15 GM TUBE PO PRN ×2 (14:57)
[2020-04-22] MEDS ORDERED: DEXTROSE 50%-WATER 25 GM/50 ML DISP.SYRIN IV PRN ×2 (14:57)
[2020-04-22] MEDS ORDERED: ACETAMINOPHEN 325 MG TABLET PO PRN (14:57)
[2020-04-22] MEDS ORDERED: NORMAL SALINE 1000 ML 1,000 ML IV PRN (14:57)
[2020-04-22] MEDS ORDERED: MAG HYDROX/AL HYDROX/SIMETH SUSP 30 ML UDCUP PO PRN (14:57)
[2020-04-22] MEDS ORDERED: NORMAL SALINE 100 ML with INSULIN REGULAR, HUMAN 100 UNIT IV PRN ×2 (15:13)
[2020-04-22] MEDS ORDERED: KETOROLAC TROMETHAMINE INJ/PF 30 MG/1 ML SDV IV PRN (15:34)
[2020-04-22] MEDS ORDERED: TRAMADOL HCL 50 MG TABLET PO PRN (15:34)
--- NOTE | 2020-04-22 15:34 | PDOC H&P ---
History of Present Illness Admission Date/PCP: JAZMIN ANAYA MD Patient complains of: Right thigh pain/swelling History of Present Illness: SENAIT BISHOP is a 54 year old female with history of diabetes mellitus type 2, hypertension, who presents to the hospital with complaints of pain swelling and induration in her right thigh/perineal area. This has been present for the past few days and progressive. She describes it as a boil. Denies any drainage from the area but notes that is quite tender. Denies any trauma to the area. She has also noted that her sugars have been running high at home. She denies noncompliance with her insulin regimen. Denies any shortness of breath, chest pain cough nausea vomiting. Does however admit some dry heaves earlier today. Past Medical History Cardiac Medical History: Reports: Hyperlipidema, Hypertension Endocrine Medical History: Reports: Diabetes Mellitus Type 2 Past Surgical History Past Surgical History: Reports: Tubal Ligation Social History Lives with: Family Smoking Status: Former Smoker Electronic Cigarette use?: No Hx Recreational Drug Use: No - Advance Directive Resuscitation Status: Full Code Family History Family History: DM, Hypertension Parental Family History Reviewed: Yes Children Family History Reviewed: NA Sibling(s) Family History Reviewed.: NA Medication/Allergy Home Medications: Metoclopramide HCl [Reglan 10 mg Tablet] 1 tab PO ASDIR PRN #25 tablet 08/01/17 Cephalexin Monohydrate [Keflex 500 mg Capsule] 500 mg PO Q6H 7 Days capsule 01/27/18 Sulfamethoxazole/Trimethoprim [Bactrim Ds Tablet] 1 each PO BID #20 tablet 01/27/18 Benzonatate [Tessalon Perles 100 mg Capsule] 100 mg PO Q8HP PRN #40 capsule 08/02/19 Levofloxacin [Levaquin 750 mg Tablet] 750 mg PO DAILY #5 tablet 08/02/19 Allergies/Adverse Reactions: codeine Allergy (Verified 04/22/20 11:21) orange juice Allergy (Verified 04/22/20 11:21) Penicillins Allergy (Verified 04/22/20 11:21) Sulfa (Sulfonamide Antibiotics) Allergy (Verified 04/22/20 11:21) Review of Systems Constitutional: PRESENT: fatigue. ABSENT: fever(s) Eyes: ABSENT: visual disturbances Nose, Mouth, and Throat: ABSENT: headache(s) Cardiovascular: ABSENT: chest pain Respiratory: ABSENT: cough, dyspnea Gastrointestinal: ABSENT: abdominal pain, diarrhea, hematemesis, melena, vomiting Genitourinary: ABSENT: difficulty urinating, dysuria Neurological: PRESENT: other - Occasional lightheadedness Psychiatric: ABSENT: anxiety Endocrine: ABSENT: polyuria Allergic/Immunologic: PRESENT: other - Denies rhinorrhea Physical Exam Vital Signs: Temp Pulse Resp BP Pulse Ox 98.4 F 136 H 23 H 124/70 97 04/22/20 11:25 04/22/20 11:25 04/22/20 14:30 04/22/20 14:30 04/22/20 14:30 Intake & Output 04/21/20 04/22/20 04/23/20 06:59 06:59 06:59 Intake Total 2049 Balance 2049 Weight 81.647 kg Results Laboratory Results: 04/22/20 11:46 04/22/20 11:46 04/22/20 04/22/20 04/22/20 11:46 11:46 11:46 WBC 19.7 H RBC 5.19 Hgb 10.0 L Hct 33.2 L MCV 64 L MCH 19.2 L MCHC 30.0 L RDW 16.9 H Plt Count 390 Seg Neutrophils % Not Reportable Carbonic Acid HCO3/H2CO3 Ratio ABG pH ABG pCO2 ABG pO2 ABG HCO3 ABG O2 Saturation ABG Base Excess FiO2 Sodium 129.0 L Potassium 5.5 H Chloride 97 L Carbon Dioxide 13 L Anion Gap 19 BUN 25 H Creatinine 1.24 Est GFR ( Amer) 55 L Glucose 479 H* Lactic Acid Calcium 9.3 Magnesium 2.1 Total Bilirubin 0.7 AST 16 Alkaline Phosphatase 95 Total Protein 6.5 Albumin 3.7 Urine Color Urine Appearance Urine pH Ur Specific [place] Urine Protein Urine Glucose (UA) Urine Ketones Urine Blood Urine Nitrite Ur Leukocyte Esterase Urine WBC (Auto) Urine RBC (Auto) 04/22/20 04/22/20 04/22/20 12:47 13:19 13:39 WBC RBC Hgb Hct MCV MCH MCHC RDW Plt Count Seg Neutrophils % Carbonic Acid 0.67 L HCO3/H2CO3 Ratio 17:1 ABG pH 7.34 L ABG pCO2 22.1 L ABG pO2 89.1 ABG HCO3 11.6 L ABG O2 Saturation 96.6 ABG Base Excess -12.7 FiO2 ROOM AIR Sodium Potassium Chloride Carbon Dioxide Anion Gap BUN Creatinine Est GFR ( Amer) Glucose Lactic Acid 1.2 Calcium Magnesium Total Bilirubin AST Alkaline Phosphatase Total Protein Albumin Urine Color STRAW Urine Appearance CLEAR Urine pH 5.0 Ur Specific [place] 1.009 Urine Protein NEGATIVE Urine Glucose (UA) >=500 H Urine Ketones 20 H Urine Blood NEGATIVE Urine Nitrite NEGATIVE Ur Leukocyte Esterase NEGATIVE Urine WBC (Auto) 0 Urine RBC (Auto) 1 04/22/20 04/22/20 11:46 11:46 Creatine Kinase 157 H CK-MB (CK-2) 1.35 Troponin I < 0.012 Assessment and Plan - Diagnosis (1) DKA (diabetic ketoacidoses) Qualifiers: Diabetes mellitus type: type 2 Diabetes mellitus complication detail: without coma Qualified Code(s): E11.10 - Type 2 diabetes mellitus with ketoacidosis without coma Is this a current diagnosis for this admission?: Yes Plan: Patient noted to be in DKA with high anion gap metabolic acidosis [anion gap 19], ketonuria and hyperglycemia. Lactic acid level is normal. Pseudohyponatremia secondary to hyperglycemia Admit to IMCU Likely precipitated by patient's current abscess Hemoglobin A1c of 12 indicates poorly controlled diabetes mellitus Start on insulin drip. We will give 8 units insulin IV bolus right now. DKA protocol Frequent BMP Keep NPO (2) Hyperkalemia Is this a current diagnosis for this admission?: Yes Plan: Secondary to DKA. Potassium of 5.5. Expected to normalize with treatment of DKA. (3) Hypotension Qualifiers: Hypotension type: unspecified hypotension type Qualified Code(s): I95.9 - Hypotension, unspecified Is this a current diagnosis for this admission?: Yes Plan: Sepsis likely secondary to dehydration plus acidosis. Normal saline infusion 200 cc/h (4) Perineal abscess Is this a current diagnosis for this admission?: Yes Plan: Involving her right perineal region as well as her right inner thigh. Surgery has been consulted and I have been informed that patient is planned to be taken to the OR pending COVID-19 results which just resulted as negative. Blood cultures have been obtained. Pain control with p.o. and IV pain meds as needed. Clindamycin IV (5) Tachycardia Is this a current diagnosis for this admission?: Yes Plan: Sinus tachycardia secondary to dehydration and current infection. Monitor on telemetry with IV fluids. Heart rate improved to 110-120s from 136 initially - Time Time Spent with patient: 35 or more minutes Anticipated Discharge Disposition: Home, Self Care Anticipated Discharge Timeframe: within 72 hours
--- NOTE | 2020-04-22 16:12 | PDOC CONSULTATION ---
Consultation Consult Date: 04/22/20 Attending physician:: MIKAELA VASQUEZ Provider Consulted: KEILY SIEGEL Consult reason:: Right inner thigh abscess History of Present Illness Admission Date/PCP: 04/22/20 15:13 JAZMIN ANAYA MD History of Present Illness: SENAIT BISHOP is a 54 year old female Presents emergency department complaining of a swelling, pain, redness involving the inner thigh for several days. She was evaluated in the emergency department found to have an acute abscess, surgery was consulted. She was advised admission for definitive management. Patient was found to have blood sugar approximately 500, along with hyponatremia. Patient was admitted to the hospitalist service with surgery consulting. Past Medical History Past Medical History: Obesity; former smoker Cardiac Medical History: Reports: Hyperlipidema, Hypertension Endocrine Medical History: Reports: Diabetes Mellitus Type 2 Past Surgical History Past Surgical History: Reports: Tubal Ligation Social History Information Source: Patient Lives with: Family Smoking Status: Former Smoker Electronic Cigarette use?: No Hx Recreational Drug Use: No - Advance Directive Resuscitation Status: Full Code Family History Family History: None, DM, Hypertension Parental Family History Reviewed: No Children Family History Reviewed: No Sibling(s) Family History Reviewed.: No Medication/Allergy Home Medications: Metoclopramide HCl [Reglan 10 mg Tablet] 1 tab PO ASDIR PRN #25 tablet 08/01/17 Cephalexin Monohydrate [Keflex 500 mg Capsule] 500 mg PO Q6H 7 Days capsule 01/27/18 Sulfamethoxazole/Trimethoprim [Bactrim Ds Tablet] 1 each PO BID #20 tablet 01/27/18 Benzonatate [Tessalon Perles 100 mg Capsule] 100 mg PO Q8HP PRN #40 capsule 08/02/19 Levofloxacin [Levaquin 750 mg Tablet] 750 mg PO DAILY #5 tablet 08/02/19 Allergies/Adverse Reactions: codeine Allergy (Verified 04/22/20 11:21) orange juice Allergy (Verified 04/22/20 11:21) Penicillins Allergy (Verified 04/22/20 11:21) Sulfa (Sulfonamide Antibiotics) Allergy (Verified 04/22/20 11:21) Review of Systems Constitutional: PRESENT: as per HPI Eyes: ABSENT: visual disturbances Ears: ABSENT: hearing changes Cardiovascular: ABSENT: chest pain, dyspnea on exertion, edema, orthropnea, palpitations Genitourinary: ABSENT: dysuria, hematuria Physical Exam Vital Signs: Temp Pulse Resp BP Pulse Ox 98.4 F 136 H 23 H 124/70 97 04/22/20 11:25 04/22/20 11:25 04/22/20 14:30 04/22/20 14:30 04/22/20 14:30 Intake & Output 04/21/20 04/22/20 04/23/20 06:59 06:59 06:59 Intake Total 2049 Balance 2049 Weight 81.647 kg General appearance: PRESENT: mild distress Head exam: PRESENT: normocephalic Eye exam: PRESENT: EOMI Mouth exam: PRESENT: dry mucosa Neck exam: PRESENT: full ROM Respiratory exam: PRESENT: rhonchi Cardiovascular exam: PRESENT: tachycardia Pulses: PRESENT: normal carotid pulses, normal radial pulses, normal femoral pulses GI/Abdominal exam: PRESENT: soft Gentrourinary exam: PRESENT: other - Right proximal inner thigh examined. There is swelling of the perineum lateral to the right labia, extending into the inner thigh crease with swelling of the proximal inner thigh, no active drainage Extremities exam: PRESENT: +1 edema Neurological exam: PRESENT: oriented to person, oriented to place, oriented to time, oriented to situation Psychiatric exam: PRESENT: appropriate affect Results Laboratory Results: 04/22/20 11:46 04/22/20 11:46 04/22/20 04/22/20 04/22/20 11:46 11:46 11:46 WBC 19.7 H RBC 5.19 Hgb 10.0 L Hct 33.2 L MCV 64 L MCH 19.2 L MCHC 30.0 L RDW 16.9 H Plt Count 390 Seg Neutrophils % Not Reportable Carbonic Acid HCO3/H2CO3 Ratio ABG pH ABG pCO2 ABG pO2 ABG HCO3 ABG O2 Saturation ABG Base Excess FiO2 Sodium 129.0 L Potassium 5.5 H Chloride 97 L Carbon Dioxide 13 L Anion Gap 19 BUN 25 H Creatinine 1.24 Est GFR ( Amer) 55 L Glucose 479 H* Lactic Acid Calcium 9.3 Magnesium 2.1 Total Bilirubin 0.7 AST 16 Alkaline Phosphatase 95 Total Protein 6.5 Albumin 3.7 Urine Color Urine Appearance Urine pH Ur Specific [place] Urine Protein Urine Glucose (UA) Urine Ketones Urine Blood Urine Nitrite Ur Leukocyte Esterase Urine WBC (Auto) Urine RBC (Auto) 04/22/20 04/22/20 04/22/20 12:47 13:19 13:39 WBC RBC Hgb Hct MCV MCH MCHC RDW Plt Count Seg Neutrophils % Carbonic Acid 0.67 L HCO3/H2CO3 Ratio 17:1 ABG pH 7.34 L ABG pCO2 22.1 L ABG pO2 89.1 ABG HCO3 11.6 L ABG O2 Saturation 96.6 ABG Base Excess -12.7 FiO2 ROOM AIR Sodium Potassium Chloride Carbon Dioxide Anion Gap BUN Creatinine Est GFR ( Amer) Glucose Lactic Acid 1.2 Calcium Magnesium Total Bilirubin AST Alkaline Phosphatase Total Protein Albumin Urine Color STRAW Urine Appearance CLEAR Urine pH 5.0 Ur Specific [place] 1.009 Urine Protein NEGATIVE Urine Glucose (UA) >=500 H Urine Ketones 20 H Urine Blood NEGATIVE Urine Nitrite NEGATIVE Ur Leukocyte Esterase NEGATIVE Urine WBC (Auto) 0 Urine RBC (Auto) 1 04/22/20 04/22/20 11:46 11:46 Creatine Kinase 157 H CK-MB (CK-2) 1.35 Troponin I < 0.012 Assessment & Plan - Diagnosis (1) Perineal abscess Is this a current diagnosis for this admission?: Yes Plan: Impression: Acute perineal abscess with resultant sepsis and diabetic female with uncontrolled DKA Recommendations: 1. Agree with admission, IV fluids, intravenous antibiotics 2. Check rapid COVID test 3. Take patient to the operating for drainage, packing versus drain placement right groin (2) DKA (diabetic ketoacidoses) Qualifiers: Diabetes mellitus type: type 2 Diabetes mellitus complication detail: without coma Qualified Code(s): E11.10 - Type 2 diabetes mellitus with ketoacidosis without coma Is this a current diagnosis for this admission?: Yes (3) Hyponatremia Is this a current diagnosis for this admission?: Yes (4) Leukocytosis Qualifiers: Leukocytosis type: unspecified Qualified Code(s): D72.829 - Elevated white blood cell count, unspecified Is this a current diagnosis for this admission?: Yes (5) Poorly controlled diabetes mellitus Is this a current diagnosis for this admission?: Yes (6) Tachycardia Is this a current diagnosis for this admission?: Yes - Time Time Spent: 30 to 50 Minutes Medications reviewed and adjusted accordingly: Yes Anticipated discharge: Home
[2020-04-22] MEDS ORDERED: LIDOCAINE 2% INJ-PF (20 MG/ML) 10 ML AMPUL ONE (17:32)
[2020-04-22] MEDS ORDERED: FENTANYL CITRATE INJ/PF 100 MCG/2 ML AMPUL ONE (17:32)
[2020-04-22] MEDS ORDERED: ONDANSETRON HCL INJ/PF 4 MG/2 ML SDV ONE (17:33)
[2020-04-22] MEDS ORDERED: MIDAZOLAM 2 MG/2 ML INJ ONE (17:33)
[2020-04-22] MEDS ORDERED: PROPOFOL INJ 200 MG/20 ML VIAL IV ONE (17:33)
[2020-04-22] MEDS ORDERED: INSULIN REG, HUMAN 100 UNIT/ML 3 ML VIAL (PYX) ONE (18:06)
[2020-04-22] MEDS ORDERED: INSULIN NPH (ISOPHANE), HUMAN 100 UNIT/ML 3 ML ONE (18:08)
[2020-04-22 18:31] LABS: ANION GAP 16 (5-19); BLOOD UREA NITROGEN 24 mg/dL (7-20); CALCIUM 8.7 mg/dL (8.4-10.2); CARBON DIOXIDE 17 mmol/L (22-30); CHLORIDE 100 mmol/L (98-107); GLUCOSE 362 mg/dL (75-110)
[2020-04-22 18:32] LABS: POTASSIUM 4.2 mmol/L (3.6-5.0)
[2020-04-22] MEDS ORDERED: HYDROMORPHONE HCL INJ/PF 2 MG/ML AMPULE ONE (18:41)
[2020-04-22] MEDS ORDERED: PROMETHAZINE HCL INJ 25 MG/1 ML VIAL IV PRN ×2 (18:53)
[2020-04-22] MEDS ORDERED: FENTANYL CITRATE INJ/PF 100 MCG/2 ML AMPUL IV PRN ×3 (18:53)
[2020-04-22] MEDS ORDERED: OXYCODONE-ACETAMINOPHEN 5-325 MG TABLET PO PRN (18:53)
[2020-04-22] MEDS ORDERED: DIPHENHYDRAMINE HCL 50 MG/ML VIAL IV PRN (18:53)
--- NOTE | 2020-04-22 19:11 | EKG REPORT ---
SEVERITY:- BORDERLINE ECG - SINUS TACHYCARDIA CONSIDER RIGHT VENTRICULAR HYPERTROPHY BORDERLINE T ABNORMALITIES, INFERIOR LEADS : Confirmed by: Augusta Clark 22-Apr-2020 19:10:25
--- NOTE | 2020-04-22 19:17 | Operative Report ---
Operative Report DATE OF SURGERY: 04/22/20 PREOPERATIVE DIAGNOSIS: 1. Soft tissue infection of the right groin and inner thigh. 2. Uncontrolled DKA POSTOPERATIVE DIAGNOSIS: Same with necrotizing fasciitis of the right thigh involving the pectineus muscle, and a adductor longus muscle OPERATION: 1. Excisional debridement of skin, subcutaneous tissue, fascia, and muscle fibers of the right inner thigh, and lower groin area. 2. Counterincision right lower groin with French loop drain SURGEON: KEILY SIEGEL ANESTHESIA: GA TISSUE REMOVED OR ALTERED: Skin, subcutaneous tissue, fascia and muscle elements COMPLICATIONS: None ESTIMATED BLOOD LOSS: 40 cc INTRAOPERATIVE FINDINGS: See below PROCEDURE: Patient was taken the preop holding her to the main operating where general anesthesia was induced. Fluid resuscitation continued and Schulz catheter was draining clear urine. The patient was placed in a supine stirrups position. The perineum was prepped and draped with Betadine Surgical plan surgical timeout were conducted. A diagonal incision was made over the right inner thigh high towards the pubis. The incision was extended proximally and distally to open up the tissue widely. Watery pus was evacuated. The infection extended anteriorly and proximally towards the lower groin so all of these loculations were broken up. Once we had the soft tissue wide open, it was clear that there was necrotizing fasciitis and myositis involving the fascia of the proximal inner thigh, and the pectineus muscle and the abductor longus muscle. Cultures of the tissue were obtained for Gram stain, and sensitivity. I made a counterincision on the lower groin, and threaded a large [place] drain in a loop fashion and tied in a knot for optimal drainage and exposure. We now irrigated all of the superficial and deep soft tissue including the after mentioned muscles with 6 L of pulse lavage irrigation. Once complete, I felt that the obvious necrotic tissue involving the subcutaneous fat, and the superficial muscle fibers were sufficiently debrided. There was no indication at this time of exploration for any additional counterincisions. The large open wound was packed with a large Betadine soaked Kerlix, and a small piece of gauze packing into the counterincision. Abdominal pads were provided for additional coverage. Patient tolerated procedure well, extubated, taken recovery in stable condition. Summary: Excisional debridement with knife, and scissors involving skin, subcutaneous tissue, fascia and skeletal muscle fibers approximately 12 cm of tissue. Plan: 1. Continue fluid resuscitation, intravenous antibiotics 2. Keep patient n.p.o.; she may require a second look in the operating room with additional debridement and this was discussed with nursing staff, and hospitalist.
[2020-04-22] MEDS: DEXTROSE 5%-LACTATED RINGERS 1,000 ML IV PRN (21:15)
[2020-04-22] MEDS: ATORVASTATIN CALCIUM 40 MG TABLET PO SCH (21:31)
[2020-04-22] MEDS ORDERED: CLINDAMYCIN 600 MG/D5W RTU 600 MG/50 ML RTUPB IV SCH (22:00)
[2020-04-22] MEDS: CLINDAMYCIN 900 MG/D5W RTU 900 MG/50 ML RTUPB IV SCH (23:03)
[2020-04-23 00:06] LABS: ANION GAP 10 (5-19); BLOOD UREA NITROGEN 24 mg/dL (7-20); CALCIUM 8.4 mg/dL (8.4-10.2); CARBON DIOXIDE 21 mmol/L (22-30); CHLORIDE 102 mmol/L (98-107); GLUCOSE 373 mg/dL (75-110); POTASSIUM 3.6 mmol/L (3.6-5.0)
[2020-04-23] MEDS: CEFTRIAXONE 2 GM/D5W RTU 2 GM/50 ML RTUPB IV SCH ×2 (00:22→21:41)
[2020-04-23] MEDS: DEXTROSE 5%-LACTATED RINGERS 1,000 ML IV PRN ×2 (01:14→05:20)
[2020-04-23] MEDS: CLINDAMYCIN 900 MG/D5W RTU 900 MG/50 ML RTUPB IV SCH ×3 (05:20→21:40)
[2020-04-23 07:06] LABS: HEMATOCRIT 26.8 % (36.0-47.0); HEMOGLOBIN 8.3 g/dL (12.0-15.5); MEAN CORPUSCULAR HEMOGLOBIN 19.4 pg (27.0-33.4); MEAN CORPUSCULAR HGB CONC 30.9 g/dL (32.0-36.0); MEAN CORPUSCULAR VOLUME 63 fl (80-97); PLATELET COUNT 251 10^3/uL (150-450); RED BLOOD COUNT 4.26 10^6/uL (3.72-5.28); RED CELL DISTRIBUTION WIDTH 16.6 % (11.5-14.0); WHITE BLOOD COUNT 13.6 10^3/uL (4.0-10.5)
[2020-04-23] MEDS: HYDROCHLOROTHIAZIDE 12.5 MG TABLET PO SCH (07:22)
[2020-04-23 07:33] LABS: ANION GAP 6 (5-19); BLOOD UREA NITROGEN 20 mg/dL (7-20); CALCIUM 8.4 mg/dL (8.4-10.2); CARBON DIOXIDE 26 mmol/L (22-30); CHLORIDE 105 mmol/L (98-107); GLUCOSE 241 mg/dL (75-110)
[2020-04-23 07:37] LABS: ABSOLUTE LYMPHOCYTES# (MANUAL) 1.2 10^3/uL (0.5-4.7); ABSOLUTE MONOCYTES # (MANUAL) 1.1 10^3/uL (0.1-1.4); BAND NEUTROPHILS % (MANUAL) 1 % (3-5); BASOPHILS % (MANUAL) 1 % (0-2); EOSINOPHILS % (MANUAL) 0 % (0-6); LYMPHOCYTES % (MANUAL) 9 % (13-45); MONOCYTES % (MANUAL) 8 % (3-13); SEGMENTED NEUTROPHILS % (MAN) 81 % (42-78); TOTAL CELLS COUNTED 100
[2020-04-23 07:38] LABS: HYPOCHROMASIA 1+; OVALOCYTES SLIGHT; PLATELET COMMENT ADEQUATE; POIKILOCYTOSIS SLIGHT
[2020-04-23] MEDS: GLIMEPIRIDE 4 MG TABLET PO SCH ×2 (08:04→14:59)
[2020-04-23] MEDS ORDERED: POTASSIUM CHLORIDE 10 MEQ TABLET.ER PO ONE (09:17)
[2020-04-23] MEDS ORDERED: DEXTROSE 5%-LACTATED RINGERS 1,000 ML IV PRN (09:18)
[2020-04-23] MEDS: ENOXAPARIN SODIUM INJ 40 MG/0.4 ML DISP.SYRIN SUBCUT SCH (09:34)
[2020-04-23] MEDS: LOSARTAN POTASSIUM 50 MG TABLET PO SCH (09:35)
[2020-04-23] MEDS ORDERED: POTASSI CL 20 MEQ/50 ML RIDER 20 MEQ/50 ML RTUPB IV SCH (10:00)
[2020-04-23] MEDS: INSULIN GLARGINE,HUM.REC.ANLOG 1,000 UNIT/10 ML VIAL SUBCUT SCH ×2 (10:42→21:44)
[2020-04-23 10:51] LABS: ABSOLUTE RETICS # 0.077 10^6/uL (0.028-0.122); RETICULOCYTE COUNT (AUTO) 1.76 % (0.66-2.85)
--- NOTE | 2020-04-23 11:03 | PDOC PROGRESS REPORT ---
Subjective Progress Note for:: 04/23/20 Subjective:: c/o pain rt labia Reason For Visit: DKA,THIGH ABSCESS Physical Exam Vital Signs: Temp Pulse Resp BP Pulse Ox 97.9 F 106 H 18 104/50 L 92 04/23/20 03:20 04/23/20 07:00 04/23/20 03:20 04/23/20 03:20 04/23/20 03:20 Intake & Output 04/22/20 04/23/20 04/24/20 06:59 06:59 06:59 Intake Total 5941 1078 Output Total 1225 Balance 4716 1078 Weight 85.9 kg General appearance: PRESENT: no acute distress Head exam: PRESENT: normocephalic Eye exam: PRESENT: EOMI Ear exam: PRESENT: normal external ear exam Mouth exam: PRESENT: moist Teeth exam: PRESENT: poor dentation Neck exam: PRESENT: full ROM Respiratory exam: PRESENT: clear to auscultation blanca Cardiovascular exam: PRESENT: RRR Pulses: PRESENT: normal radial pulses, normal femoral pulses Breast: PRESENT: Normal GI/Abdominal exam: PRESENT: soft Rectal exam: PRESENT: deferred Gentrourinary exam: PRESENT: other - rt groin/labial incision pack removeed brenda in place wound base clean,no further extension Neurological exam: PRESENT: alert, awake, oriented to person, oriented to place Psychiatric exam: PRESENT: appropriate affect Skin exam: PRESENT: dry Results Laboratory Results: 04/23/20 06:20 04/23/20 06:20 04/22/20 04/22/20 04/22/20 11:46 11:46 11:46 WBC 19.7 H RBC 5.19 Hgb 10.0 L Hct 33.2 L MCV 64 L MCH 19.2 L MCHC 30.0 L RDW 16.9 H Plt Count 390 Seg Neutrophils % Not Reportable Retic Count (auto) Carbonic Acid HCO3/H2CO3 Ratio ABG pH ABG pCO2 ABG pO2 ABG HCO3 ABG O2 Saturation ABG Base Excess FiO2 Sodium 129.0 L Potassium 5.5 H Chloride 97 L Carbon Dioxide 13 L Anion Gap 19 BUN 25 H Creatinine 1.24 Est GFR ( Amer) 55 L Glucose 479 H* Lactic Acid Calcium 9.3 Magnesium 2.1 Total Bilirubin 0.7 AST 16 Alkaline Phosphatase 95 Total Protein 6.5 Albumin 3.7 Urine Color Urine Appearance Urine pH Ur Specific [place] Urine Protein Urine Glucose (UA) Urine Ketones Urine Blood Urine Nitrite Ur Leukocyte Esterase Urine WBC (Auto) Urine RBC (Auto) 04/22/20 04/22/20 04/22/20 12:47 13:19 13:39 WBC RBC Hgb Hct MCV MCH MCHC RDW Plt Count Seg Neutrophils % Retic Count (auto) Carbonic Acid 0.67 L HCO3/H2CO3 Ratio 17:1 ABG pH 7.34 L ABG pCO2 22.1 L ABG pO2 89.1 ABG HCO3 11.6 L ABG O2 Saturation 96.6 ABG Base Excess -12.7 FiO2 ROOM AIR Sodium Potassium Chloride Carbon Dioxide Anion Gap BUN Creatinine Est GFR ( Amer) Glucose Lactic Acid 1.2 Calcium Magnesium Total Bilirubin AST Alkaline Phosphatase Total Protein Albumin Urine Color STRAW Urine Appearance CLEAR Urine pH 5.0 Ur Specific [place] 1.009 Urine Protein NEGATIVE Urine Glucose (UA) >=500 H Urine Ketones 20 H Urine Blood NEGATIVE Urine Nitrite NEGATIVE Ur Leukocyte Esterase NEGATIVE Urine WBC (Auto) 0 Urine RBC (Auto) 1 04/22/20 04/22/20 04/23/20 17:58 23:30 06:20 WBC 13.6 H RBC 4.26 Hgb 8.3 L Hct 26.8 L MCV 63 L MCH 19.4 L MCHC 30.9 L RDW 16.6 H Plt Count 251 Seg Neutrophils % Not Reportable Retic Count (auto) Carbonic Acid HCO3/H2CO3 Ratio ABG pH ABG pCO2 ABG pO2 ABG HCO3 ABG O2 Saturation ABG Base Excess FiO2 Sodium 132.6 L 132.8 L Potassium 4.2 D 3.6 Chloride 100 102 Carbon Dioxide 17 L 21 L Anion Gap 16 10 BUN 24 H 24 H Creatinine 1.11 1.11 Est GFR ( Amer) > 60 > 60 Glucose 362 H 373 H Lactic Acid Calcium 8.7 8.4 Magnesium Total Bilirubin AST Alkaline Phosphatase Total Protein Albumin Urine Color Urine Appearance Urine pH Ur Specific [place] Urine Protein Urine Glucose (UA) Urine Ketones Urine Blood Urine Nitrite Ur Leukocyte Esterase Urine WBC (Auto) Urine RBC (Auto) 04/23/20 04/23/20 06:20 06:20 WBC RBC Hgb Hct MCV MCH MCHC RDW Plt Count Seg Neutrophils % Retic Count (auto) 1.76 Carbonic Acid HCO3/H2CO3 Ratio ABG pH ABG pCO2 ABG pO2 ABG HCO3 ABG O2 Saturation ABG Base Excess FiO2 Sodium 136.5 L Potassium 3.0 L* Chloride 105 Carbon Dioxide 26 Anion Gap 6 BUN 20 Creatinine 1.00 Est GFR ( Amer) > 60 Glucose 241 H Lactic Acid Calcium 8.4 Magnesium 2.2 Total Bilirubin AST Alkaline Phosphatase Total Protein Albumin Urine Color Urine Appearance Urine pH Ur Specific [place] Urine Protein Urine Glucose (UA) Urine Ketones Urine Blood Urine Nitrite Ur Leukocyte Esterase Urine WBC (Auto) Urine RBC (Auto) 04/22/20 04/22/20 11:46 11:46 Creatine Kinase 157 H CK-MB (CK-2) 1.35 Troponin I < 0.012 Assessment & Plan - Time Time Spent: 30 to 50 Minutes Critical Time spent with patient: 15-24 minutes Anticipated Discharge Disposition: unk Anticipated Discharge Timeframe: unk - Plan Summary Plan Summary: s/p incsion drainage of rt labial abscess fascitis wound clean now as pack removed will start wet to dry dressing changes bid cont close observation
[2020-04-23] MEDS: INSULIN LISPRO 100 UNIT/ML 3 ML VIAL SUBCUT SCH ×3 (11:34→21:42)
[2020-04-23 12:03] LABS: PATH REVIEW PATHOLOGIST REVIEWED
[2020-04-23 12:11] LABS: IRON(TIBC) < 10.1 ug/dL (37-170)
--- NOTE | 2020-04-23 14:58 | PDOC PROGRESS REPORT ---
Subjective Progress Note for:: 04/23/20 Subjective:: Patient was taken to the OR yesterday underwent incision and debridement. She was found to have necrotizing fasciitis. This morning, she feels well. Anion gap is closed insulin drip has been discontinued. She did have some pain when her dressing was changed. However, during my encounter the pain was not too severe. We will continue to monitor closely. Heart rate seems to have picked up earlier but on conversation with patient's RN, heart rate is back into the 110s. Reason For Visit: DKA,THIGH ABSCESS Physical Exam Vital Signs: Temp Pulse Resp BP Pulse Ox 100.1 F 131 H 22 H 114/43 L 94 04/23/20 11:29 04/23/20 11:29 04/23/20 11:29 04/23/20 11:29 04/23/20 11:29 Intake & Output 04/22/20 04/23/20 04/24/20 06:59 06:59 06:59 Intake Total 5941 1416 Output Total 1225 Balance 4716 1416 Weight 85.9 kg General appearance: PRESENT: no acute distress, cooperative Neck exam: ABSENT: JVD Respiratory exam: PRESENT: clear to auscultation blanca, unlabored. ABSENT: tachypnea, wheezes Cardiovascular exam: PRESENT: +S1, +S2, tachycardia. ABSENT: irregular rhythm GI/Abdominal exam: PRESENT: soft. ABSENT: rebound, rigid, tenderness Extremities exam: PRESENT: other - left Neurological exam: PRESENT: alert, awake, oriented to person, oriented to place, oriented to time Results Laboratory Results: 04/23/20 06:20 04/23/20 06:20 04/22/20 04/22/20 04/23/20 17:58 23:30 06:20 WBC 13.6 H RBC 4.26 Hgb 8.3 L Hct 26.8 L MCV 63 L MCH 19.4 L MCHC 30.9 L RDW 16.6 H Plt Count 251 Seg Neutrophils % Not Reportable Retic Count (auto) Sodium 132.6 L 132.8 L Potassium 4.2 D 3.6 Chloride 100 102 Carbon Dioxide 17 L 21 L Anion Gap 16 10 BUN 24 H 24 H Creatinine 1.11 1.11 Est GFR ( Amer) > 60 > 60 Glucose 362 H 373 H Calcium 8.7 8.4 Magnesium Iron TIBC Ferritin Vitamin B12 Folate 04/23/20 04/23/20 04/23/20 06:20 06:20 06:20 WBC RBC Hgb Hct MCV MCH MCHC RDW Plt Count Seg Neutrophils % Retic Count (auto) 1.76 Sodium 136.5 L Potassium 3.0 L* Chloride 105 Carbon Dioxide 26 Anion Gap 6 BUN 20 Creatinine 1.00 Est GFR ( Amer) > 60 Glucose 241 H Calcium 8.4 Magnesium 2.2 Iron < 10.1 L TIBC 605 H Ferritin 46.80 Vitamin B12 > 1000.0 H Folate 11.10 04/22/20 04/22/20 11:46 11:46 Creatine Kinase 157 H CK-MB (CK-2) 1.35 Troponin I < 0.012 Assessment and Plan - Diagnosis (1) Necrotizing fasciitis Is this a current diagnosis for this admission?: Yes Plan: Abscess involving the right thigh and perineal area with necrotizing fasciitis involving her right thigh pectineus muscle and abductor longus Had excision and debridement done yesterday in the OR Deep wound culture sent Continue ceftriaxone and clindamycin IV for now and awaiting cultures Follow blood cultures as well Morphine IV and Toradol IV as needed for pain (2) DKA (diabetic ketoacidoses) Qualifiers: Diabetes mellitus type: type 2 Diabetes mellitus complication detail: without coma Qualified Code(s): E11.10 - Type 2 diabetes mellitus with ketoacidosis without coma Is this a current diagnosis for this admission?: Yes Plan: DKA is currently resolved today and patient was transitioned off insulin drip to Lantus 40 units Continue sliding scale insulin coverage and continue glimepiride. Accu-Cheks before meals and at bedtime. Needs better control of diabetes given hemoglobin A1c of 12. (3) Hyperkalemia Is this a current diagnosis for this admission?: Yes Plan: Resolved. Actually hypokalemic this morning and required potassium supplementation. (4) Hypotension Qualifiers: Hypotension type: unspecified hypotension type Qualified Code(s): I95.9 - Hypotension, unspecified Is this a current diagnosis for this admission?: Yes Plan: Resolved at this point. Will monitor vital signs closely. (5) Tachycardia Is this a current diagnosis for this admission?: Yes Plan: S sinus tachycardic today. We will address the different potential causes of her sinus tach including pain with IV pain meds. We will monitor her vital signs closely and monitor her heart rate on telemetry. I expect that with improvement of her sepsis, patient's tachycardia should improve. She has received a whole lot of fluids already during treatment of her DKA so I will leave her off fluids at this moment and monitor I's and O's strictly. If she seems like she needs volume resuscitation, fluids will be restarted. Does not appear anxious. (6) Sepsis Is this a current diagnosis for this admission?: Yes Plan: Improved at this point. Secondary to necrotizing fasciitis. - Time Time Spent with patient: Less than 15 minutes Anticipated Discharge Disposition: Home, Self Care Anticipated Discharge Timeframe: within 72 hours
[2020-04-23] MEDS ORDERED: IRON SUCROSE COMPLEX INJ/PF 100 MG/5 ML SDV IV SCH (15:00)
[2020-04-23] MEDS ORDERED: POTASSIUM CHLORIDE 10 MEQ TABLET.ER PO SCH (15:00)
[2020-04-23] MEDS: IRON SUCROSE COMPLEX 300 MG in NORMAL SALINE 250 ML IV SCH (17:02)
[2020-04-23] MEDS: ATORVASTATIN CALCIUM 40 MG TABLET PO SCH (21:44)
[2020-04-24] MEDS: CLINDAMYCIN 900 MG/D5W RTU 900 MG/50 ML RTUPB IV SCH (06:36)
[2020-04-24 06:38] LABS: ABSOLUTE BASOPHILS # (AUTO) 0.1 10^3/uL (0.0-0.2); ABSOLUTE EOSINOPHILS # (AUTO) 0.1 10^3/uL (0.0-0.6); ABSOLUTE LYMPHOCYTES (AUTO) 0.6 10^3/uL (0.5-4.7); ABSOLUTE MONOCYTES (AUTO) 0.6 10^3/uL (0.1-1.4); ABSOLUTE NEUT (AUTO) 8.3 10^3/uL (1.7-8.2); BASOPHILS % (AUTO) 0.6 % (0-2); EOSINOPHILS % (AUTO) 0.7 % (0-6); HEMATOCRIT 24.3 % (36.0-47.0); LYMPHOCYTES % (AUTO) 5.9 % (13-45); MEAN CORPUSCULAR HEMOGLOBIN 19.5 pg (27.0-33.4); MEAN CORPUSCULAR HGB CONC 31.6 g/dL (32.0-36.0); MEAN CORPUSCULAR VOLUME 62 fl (80-97); MONOCYTES % (AUTO) 6.2 % (3-13); PLATELET COUNT 250 10^3/uL (150-450); RED BLOOD COUNT 3.93 10^6/uL (3.72-5.28); RED CELL DISTRIBUTION WIDTH 17.1 % (11.5-14.0); SEGMENTED NEUTROPHILS % (AUTO) 86.6 % (42-78); TOTAL CELLS COUNTED % (AUTO) 100 %; WHITE BLOOD COUNT 9.6 10^3/uL (4.0-10.5)
[2020-04-24 06:58] LABS: ANION GAP 6 (5-19); BLOOD UREA NITROGEN 16 mg/dL (7-20); CALCIUM 8.1 mg/dL (8.4-10.2); CARBON DIOXIDE 22 mmol/L (22-30); CHLORIDE 108 mmol/L (98-107); CREATINE KINASE 182 U/L (30-135); GLUCOSE 156 mg/dL (75-110); POTASSIUM 3.8 mmol/L (3.6-5.0)
[2020-04-24 07:18] LABS: ANISOCYTOSIS 1+; HYPOCHROMASIA 3+; OVALOCYTES 2+; PLATELET COMMENT ADEQUATE; POIKILOCYTOSIS 2+; POLYCHROMASIA SLIGHT; TEAR DROP CELLS 1+
[2020-04-24 07:23] LABS: HEMOGLOBIN 7.7 g/dL (12.0-15.5)
[2020-04-24] MEDS ORDERED: VANCOMYCIN HCL INJ 1000 MG VIAL IV SCH (10:00)
[2020-04-24] MEDS: MORPHINE SULFATE 10 MG/ML INJ IV PRN (10:02)
[2020-04-24] MEDS: VANCOMYCIN HCL 1,000 MG in DEXTROSE 5%-WATER 250 ML IV SCH ×2 (11:17→22:40)
[2020-04-24] MEDS: GLIMEPIRIDE 4 MG TABLET PO SCH ×2 (11:21→19:53)
[2020-04-24] MEDS: LOSARTAN POTASSIUM 50 MG TABLET PO SCH (11:22)
[2020-04-24] MEDS: HYDROCHLOROTHIAZIDE 12.5 MG TABLET PO SCH (11:22)
[2020-04-24] MEDS: INSULIN GLARGINE,HUM.REC.ANLOG 1,000 UNIT/10 ML VIAL SUBCUT SCH ×2 (11:23→22:41)
[2020-04-24] MEDS: ENOXAPARIN SODIUM INJ 40 MG/0.4 ML DISP.SYRIN SUBCUT SCH (11:24)
[2020-04-24] MEDS ORDERED: INSULIN GLARGINE,HUM.REC.ANLOG 1,000 UNIT/10 ML VIAL (PYX) SUBCUT ONE ×2 (11:30→11:50)
[2020-04-24] MEDS: INSULIN LISPRO 100 UNIT/ML 3 ML VIAL SUBCUT SCH ×4 (11:32→22:44)
--- NOTE | 2020-04-24 12:28 | PDOC PROGRESS REPORT ---
Subjective Progress Note for:: 04/24/20 Subjective:: Patient has had several bouts of diarrhea today. Informed that patient has loose stools with urgency incontinence. However, she is able to feel the stool coming on and just cannot make it to the bathroom in time. Still having pain at the site of her necrotizing fasciitis. Not having any fevers. Reason For Visit: DKA,THIGH ABSCESS Physical Exam Vital Signs: Temp Pulse Resp BP Pulse Ox 97.8 F 106 H 16 114/68 95 04/24/20 08:05 04/24/20 08:05 04/24/20 08:05 04/24/20 08:05 04/24/20 08:05 Intake & Output 04/23/20 04/24/20 04/25/20 06:59 06:59 06:59 Intake Total 5941 2086 Output Total 1225 525 Balance 4716 1561 Weight 85.9 kg 91.9 kg General appearance: PRESENT: no acute distress, cooperative Neck exam: ABSENT: JVD Respiratory exam: PRESENT: symmetrical, unlabored. ABSENT: accessory muscle use, retraction, tachypnea Cardiovascular exam: PRESENT: tachycardia. ABSENT: bradycardia, irregular rhythm, RRR GI/Abdominal exam: ABSENT: ascites, distended, guarding, hernia Extremities exam: PRESENT: other - Patient's right thigh with deep surgical wound with some areas of necrosis and purulence as well as surrounding erythema. Neurological exam: PRESENT: alert, awake, oriented to person, oriented to place, oriented to time Results Laboratory Results: 04/24/20 06:02 04/24/20 06:02 04/23/20 04/24/20 04/24/20 06:20 06:02 06:02 WBC 9.6 RBC 3.93 Hgb 7.7 L Hct 24.3 L MCV 62 L MCH 19.5 L MCHC 31.6 L RDW 17.1 H Plt Count 250 Seg Neutrophils % 86.6 H Sodium 135.5 L Potassium 3.8 Chloride 108 H Carbon Dioxide 22 Anion Gap 6 BUN 16 Creatinine 0.80 Est GFR ( Amer) > 60 Glucose 156 H Calcium 8.1 L Magnesium 1.9 Iron < 10.1 L TIBC 605 H Ferritin 46.80 Vitamin B12 > 1000.0 H Folate 11.10 04/22/20 18:43 Groin - Right Gram Stain - Final 0804/22/20 04/24/20 11:46 11:46 06:02 Creatine Kinase 157 H 182 H CK-MB (CK-2) 1.35 Troponin I < 0.012 Assessment and Plan - Diagnosis (1) Necrotizing fasciitis Is this a current diagnosis for this admission?: Yes Plan: Abscess involving the right thigh and perineal area with necrotizing fasciitis involving her right thigh pectineus muscle and abductor longus Had excision and debridement done on 04/22/2020 in the OR Evaluated by surgery today and patient will be taken back to the OR today as there are more areas of necrosis noted. Deep tissue culture positive for Enterococcus - as such I will discontinue ceftriaxone and place patient on Vancomycin. I will leave patient on clindamycin IV for anaerobic coverage, just in case, but will reduce dose to 600 mg every 8 hourly Blood cultures are negative so far. 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 However, hemoglobin was 12 on admission indicating very poorly controlled diabetes mellitus. As such I have adjusted her regimen to Lantus 40 units in the morning and 16 units in the evening plus glimepiride We will give only half dose of a.m. dose of Lantus today as patient will be made n.p.o. for the OR Continue to monitor Accu-Cheks (3) Tachycardia Is this a current diagnosis for this admission?: Yes Plan: Sinus tachycardia likely secondary to pain, current infection as well. Continue IV fluids for now. (4) Iron (Fe) deficiency anemia Qualifiers: Iron deficiency anemia type: unspecified iron deficiency Qualified Code(s): D50.9 - Iron deficiency anemia, unspecified Is this a current diagnosis for this admission?: Yes Plan: Patient is severely iron deficient on blood work. Her hemoglobin also seems to have trended down to 7.7 today [baseline is 10] but this is likely due to dilution given the large amount of fluid she had received during this admission for treatment of her sepsis and DKA Acute hemoglobin drop also could be partly due to blood loss from her operation Currently she denies any active GI bleeding and has not been noted to have GI bleed by staff. I will treat her with IV Venofer day 2/3 At some point after resolution of her current infection, she will need to get endoscopic evaluation for this. (5) Hypotension Qualifiers: Hypotension type: unspecified hypotension type Qualified Code(s): I95.9 - Hypotension, unspecified Is this a current diagnosis for this admission?: Yes Plan: Resolved at this point but hard to restart fluids yesterday due to soft blood pressures. Will monitor vital signs closely. (6) Sepsis Is this a current diagnosis for this admission?: Yes Plan: Improved at this point. Secondary to necrotizing fasciitis. (7) DKA (diabetic ketoacidoses) Qualifiers: Diabetes mellitus type: type 2 Diabetes mellitus complication detail: without coma Qualified Code(s): E11.10 - Type 2 diabetes mellitus with ketoacidosis without coma Is this a current diagnosis for this admission?: Yes Plan: Resolved - Time Time Spent with patient: 15-24 minutes Anticipated Discharge Disposition: Home, Self Care Anticipated Discharge Timeframe: undetermined
--- NOTE | 2020-04-24 15:02 | PDOC PROGRESS REPORT ---
Subjective Progress Note for:: 04/24/20 Reason For Visit: DKA,THIGH ABSCESS Physical Exam Vital Signs: Temp Pulse Resp BP Pulse Ox 98.4 F 98 18 105/53 L 96 04/24/20 11:35 04/24/20 11:35 04/24/20 11:35 04/24/20 11:35 04/24/20 11:35 Intake & Output 04/23/20 04/24/20 04/25/20 06:59 06:59 06:59 Intake Total 5941 2086 25 Output Total 1225 525 Balance 4716 1561 25 Weight 85.9 kg 91.9 kg Results Laboratory Results: 04/24/20 06:02 04/24/20 06:02 04/24/20 04/24/20 06:02 06:02 WBC 9.6 RBC 3.93 Hgb 7.7 L Hct 24.3 L MCV 62 L MCH 19.5 L MCHC 31.6 L RDW 17.1 H Plt Count 250 Seg Neutrophils % 86.6 H Sodium 135.5 L Potassium 3.8 Chloride 108 H Carbon Dioxide 22 Anion Gap 6 BUN 16 Creatinine 0.80 Est GFR ( Amer) > 60 Glucose 156 H Calcium 8.1 L Magnesium 1.9 04/22/20 18:43 Groin - Right Gram Stain - Final 04/22/20 18:43 Groin - Right Wound Culture - Final Enterococcus Faecalis(Group D) Prevotella Species Anaerococcus (Peptostrep) Sp. 04/22/20 04/22/20 04/24/20 11:46 11:46 06:02 Creatine Kinase 157 H 182 H CK-MB (CK-2) 1.35 Troponin I < 0.012 Assessment & Plan - Diagnosis (1) Necrotizing fasciitis Is this a current diagnosis for this admission?: Yes - Time Anticipated Discharge Disposition: unknown Anticipated Discharge Timeframe: unknown - Plan Summary Plan Summary: 54-year-old female with necrotizing fasciitis of the right perineum. The patient has worsening of her necrotizing fasciitis. There is foul-smelling, devascularized/necrotic tissue present. The patient will require further debridement in the operating room today. I have discussed this with her at length. Risks/benefits discussed, informed consent obtained, and all questions answered.
[2020-04-24] MEDS ORDERED: MIDAZOLAM 2 MG/2 ML INJ ONE (16:13)
[2020-04-24] MEDS ORDERED: ONDANSETRON HCL INJ/PF 4 MG/2 ML SDV ONE (16:13)
[2020-04-24] MEDS ORDERED: KETAMINE HCL INJ 500 MG/10 ML VIAL ONE (16:13)
[2020-04-24] MEDS ORDERED: FENTANYL CITRATE INJ/PF 100 MCG/2 ML AMPUL ONE ×3 (16:13→17:52)
[2020-04-24] MEDS ORDERED: PROPOFOL INJ 200 MG/20 ML VIAL IV ONE (16:13)
[2020-04-24] MEDS ORDERED: BUPIVACAINE HCL 0.25 % INJ/PF (2.5 MG/1 ML) 30 ML VIAL ONE (16:15)
[2020-04-24] MEDS ORDERED: LIDOCAINE 1% INJ-PF (10 MG/ML) 30 ML SDV ONE (16:15)
[2020-04-24] MEDS ORDERED: FENTANYL CITRATE INJ/PF 100 MCG/2 ML AMPUL IV PRN ×3 (16:51)
[2020-04-24] MEDS ORDERED: PROMETHAZINE HCL INJ 25 MG/1 ML VIAL IV PRN (16:51)
[2020-04-24] MEDS ORDERED: MORPHINE SULFATE 10 MG/ML INJ IV PRN (16:51)
[2020-04-24] MEDS ORDERED: DIPHENHYDRAMINE HCL 50 MG/ML VIAL IV PRN (16:51)
[2020-04-24] MEDS ORDERED: MEPERIDINE HCL/PF INJ 25 MG/1 ML DISP.SYRIN IV PRN (16:51)
--- NOTE | 2020-04-24 17:46 | Operative Report ---
Nonrecallable Operative Report DATE OF SURGERY: 04/24/20 PREOPERATIVE DIAGNOSIS: Worsening necrotizing fasciitis of the perineum POSTOPERATIVE DIAGNOSIS: Same as above OPERATION: Sharp, excisional debridement of skin, fatty tissue, muscle, and tendon of the right perineum and upper thigh. Total debrided area approximately 10 x 10 cm. SURGEON: YOUNG SHELTON ANESTHESIA: LMAC TISSUE REMOVED OR ALTERED: Skin, fatty tissue, muscle, and fascia of the right perineum and upper thigh COMPLICATIONS: None apparent ESTIMATED BLOOD LOSS: 20 cc PROCEDURE: Drains/implants: Kerlix gauze. Procedure in detail: After an informed consent was obtained, the patient was brought to the operating room and laid in the lithotomy position. The area of the perineum was prepped and draped in a normal sterile fashion. The previous incision was inspected. There was necrotic skin, fatty tissue, fascia, and muscle on the right upper thigh and right perineum/labia. The necrotic skin, fatty tissue, fascia, and muscle was debrided away sharply, to healthy bleeding tissue. This was done with Bovie electrocautery and a scalpel. After all nonviable tissue was removed, the wound was irrigated with Irricept antiseptic irrigation. A Kerlix was then packed into the wound, and a dressing was placed. The procedure was at this time concluded. All sponge, instrument, and needle counts were correct x2. Condition: Fair.
[2020-04-24] MEDS: CLINDAMYCIN 600 MG/D5W RTU 600 MG/50 ML RTUPB IV SCH ×2 (19:53→22:43)
[2020-04-24] MEDS: IRON SUCROSE COMPLEX 300 MG in NORMAL SALINE 250 ML IV SCH (20:00)
[2020-04-24] MEDS: NORMAL SALINE 1000 ML 1,000 ML IV PRN (20:04)
[2020-04-24] MEDS: ATORVASTATIN CALCIUM 40 MG TABLET PO SCH (22:41)
[2020-04-25] MEDS: CLINDAMYCIN 600 MG/D5W RTU 600 MG/50 ML RTUPB IV SCH ×3 (06:05→21:59)
[2020-04-25 06:58] LABS: ABSOLUTE BASOPHILS # (AUTO) 0.1 10^3/uL (0.0-0.2); ABSOLUTE LYMPHOCYTES (AUTO) 0.6 10^3/uL (0.5-4.7); ABSOLUTE MONOCYTES (AUTO) 0.9 10^3/uL (0.1-1.4); ABSOLUTE NEUT (AUTO) 7.7 10^3/uL (1.7-8.2); BASOPHILS % (AUTO) 0.6 % (0-2); EOSINOPHILS % (AUTO) 0.3 % (0-6); HEMATOCRIT 23.5 % (36.0-47.0); LYMPHOCYTES % (AUTO) 6.3 % (13-45); MEAN CORPUSCULAR HEMOGLOBIN 19.3 pg (27.0-33.4); MEAN CORPUSCULAR HGB CONC 31.2 g/dL (32.0-36.0); MEAN CORPUSCULAR VOLUME 62 fl (80-97); MONOCYTES % (AUTO) 9.9 % (3-13); PLATELET COUNT 251 10^3/uL (150-450); RED BLOOD COUNT 3.78 10^6/uL (3.72-5.28); RED CELL DISTRIBUTION WIDTH 17.1 % (11.5-14.0); SEGMENTED NEUTROPHILS % (AUTO) 82.9 % (42-78); TOTAL CELLS COUNTED % (AUTO) 100 %; WHITE BLOOD COUNT 9.2 10^3/uL (4.0-10.5)
[2020-04-25 07:20] LABS: ANION GAP 8 (5-19); BLOOD UREA NITROGEN 12 mg/dL (7-20); CALCIUM 7.8 mg/dL (8.4-10.2); CARBON DIOXIDE 20 mmol/L (22-30); CHLORIDE 107 mmol/L (98-107); GLUCOSE 179 mg/dL (75-110); POTASSIUM 3.7 mmol/L (3.6-5.0)
[2020-04-25 07:41] LABS: HEMOGLOBIN 7.3 g/dL (12.0-15.5)
[2020-04-25 07:46] LABS: ANISOCYTOSIS 1+; HYPOCHROMASIA 2+; POLYCHROMASIA SLIGHT; TOXIC GRANULATION SLIGHT
[2020-04-25 07:47] LABS: BURR CELLS SLIGHT; OVALOCYTES 1+; PLATELET CLUMPS PRESENT; PLATELET COMMENT ADEQUATE; POIKILOCYTOSIS 1+; TEAR DROP CELLS SLIGHT
[2020-04-25] MEDS: INSULIN LISPRO 100 UNIT/ML 3 ML VIAL SUBCUT SCH ×4 (08:00→22:10)
[2020-04-25] MEDS: GLIMEPIRIDE 4 MG TABLET PO SCH ×2 (08:00→17:30)
[2020-04-25] MEDS: HYDROCHLOROTHIAZIDE 12.5 MG TABLET PO SCH (08:01)
[2020-04-25] MEDS: NORMAL SALINE 1000 ML 1,000 ML IV PRN (08:08)
[2020-04-25] MEDS: KETOROLAC TROMETHAMINE INJ/PF 30 MG/1 ML SDV IV PRN (08:09)
[2020-04-25] MEDS: MORPHINE SULFATE 10 MG/ML INJ IV PRN ×2 (08:09→16:57)
[2020-04-25] MEDS ORDERED: CEFTRIAXONE 2 GM/D5W RTU 2 GM/50 ML RTUPB IV SCH (10:00)
[2020-04-25] MEDS: LOSARTAN POTASSIUM 50 MG TABLET PO SCH (11:18)
[2020-04-25] MEDS: INSULIN GLARGINE,HUM.REC.ANLOG 1,000 UNIT/10 ML VIAL SUBCUT SCH ×2 (11:18→22:09)
[2020-04-25] MEDS: VANCOMYCIN HCL 1,000 MG in DEXTROSE 5%-WATER 250 ML IV SCH ×2 (12:03→21:59)
--- NOTE | 2020-04-25 12:41 | PDOC PROGRESS REPORT ---
Subjective Progress Note for:: 04/25/20 Subjective:: Patient having some pain at surgical site. Otherwise does not have much in terms of complaints. She denies any fever or chills. She did spike a fever earlier. Denies any evidence of GI bleed whatsoever. Denies melanotic stools either. States that she has history of very heavy periods and that this has been going on for a while. She thinks she is nearing menopause at this point as her cycles have started to become irregular. Reason For Visit: DKA,THIGH ABSCESS Physical Exam Vital Signs: Temp Pulse Resp BP Pulse Ox 99.0 F 103 H 19 135/62 H 95 04/25/20 07:49 04/25/20 07:49 04/25/20 07:49 04/25/20 07:49 04/25/20 07:49 Intake & Output 04/24/20 04/25/20 04/26/20 06:59 06:59 06:59 Intake Total 2351 3190 100 Output Total 525 1100 Balance 1826 2090 100 Weight 91.9 kg 95.6 kg General appearance: PRESENT: no acute distress, cooperative Neck exam: ABSENT: JVD Respiratory exam: PRESENT: clear to auscultation blanca, symmetrical, unlabored. ABSENT: tachypnea, wheezes Cardiovascular exam: PRESENT: RRR, +S1, +S2. ABSENT: tachycardia GI/Abdominal exam: PRESENT: soft. ABSENT: rebound, rigid, tenderness Neurological exam: PRESENT: alert, awake, oriented to person, oriented to place, oriented to time Results Laboratory Results: 04/25/20 06:03 04/25/20 06:03 04/25/20 04/25/20 06:03 06:03 WBC 9.2 RBC 3.78 Hgb 7.3 L Hct 23.5 L MCV 62 L MCH 19.3 L MCHC 31.2 L RDW 17.1 H Plt Count 251 Seg Neutrophils % 82.9 H Sodium 134.7 L Potassium 3.7 Chloride 107 Carbon Dioxide 20 L Anion Gap 8 BUN 12 Creatinine 0.70 Est GFR ( Amer) > 60 Glucose 179 H Calcium 7.8 L Magnesium 1.9 04/22/20 18:43 Groin - Right Gram Stain - Final 04/22/20 18:43 Groin - Right Wound Culture - Final Enterococcus Faecalis(Group D) Prevotella Species Anaerococcus (Peptostrep) Sp. 04/22/20 04/22/20 04/24/20 11:46 11:46 06:02 Creatine Kinase 157 H 182 H CK-MB (CK-2) 1.35 Troponin I < 0.012 Assessment and Plan - Diagnosis (1) Necrotizing fasciitis Is this a current diagnosis for this admission?: Yes Plan: Abscess involving the right thigh and perineal area with necrotizing fasciitis involving her right thigh pectineus muscle and abductor longus Had excision and debridement done on 04/22/2020 in the OR Had another excisional debridement in the OR on 04/24/2020 due to worsening necrotizing fasciitis. Deep tissue culture is now growing Prevotella as well as Peptostreptococcus species in addition to enterococcus Continue vancomycin and clindamycin but will resume ceftriaxone-we will consult infectious disease for antibiotic selection. 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 However, hemoglobin was 12 on admission indicating very poorly controlled diabetes mellitus. As such I have adjusted her regimen to Lantus 40 units in the morning and 16 units in the evening plus glimepiride Continue to monitor Accu-Cheks (3) Tachycardia Is this a current diagnosis for this admission?: Yes Plan: Sinus tachycardia likely secondary to pain, current infection as well. Seems to have improved now. I will discontinue fluids and monitor vitals. (4) Iron (Fe) deficiency anemia Qualifiers: Iron deficiency anemia type: unspecified iron deficiency Qualified Code(s): D50.9 - Iron deficiency anemia, unspecified Is this a current diagnosis for this admission?: Yes Plan: Patient is severely iron deficient on blood work. She does endorse that she has longstanding menorrhagia and still premenopausal. She denies any form of GI bleed or melena. No bleeding has been noted by staff either. Her hemoglobin also seem to have gradually trended down to 7.3 today [baseline is 10] but this is likely due to dilution given the large amount of fluid she has received during this admission for treatment of her sepsis and DKA Acute hemoglobin drop also could be partly due to blood loss from her operations I will treat her with IV Venofer 300 mg daily day 3/3 At some point after resolution of her current infection, she will need to get endoscopic evaluation for this denisse given age >50. (5) Hypotension Qualifiers: Hypotension type: unspecified hypotension type Qualified Code(s): I95.9 - Hypotension, unspecified Is this a current diagnosis for this admission?: Yes Plan: Resolved at this point so I will hold fluids (6) Sepsis Is this a current diagnosis for this admission?: Yes Plan: Improved at this point. Secondary to necrotizing fasciitis. (7) DKA (diabetic ketoacidoses) Qualifiers: Diabetes mellitus type: type 2 Diabetes mellitus complication detail: without coma Qualified Code(s): E11.10 - Type 2 diabetes mellitus with ketoacidosis without coma Is this a current diagnosis for this admission?: Yes Plan: Resolved - Time Time Spent with patient: 15-24 minutes Anticipated Discharge Disposition: Home, Self Care Anticipated Discharge Timeframe: >72hrs
--- NOTE | 2020-04-25 14:42 | PDOC PROGRESS REPORT ---
Subjective Progress Note for:: 04/25/20 Reason For Visit: DKA,THIGH ABSCESS Physical Exam Vital Signs: Temp Pulse Resp BP Pulse Ox 97.2 F 114 H 18 116/51 L 100 04/25/20 12:36 04/25/20 12:36 04/25/20 12:36 04/25/20 12:36 04/25/20 12:36 Intake & Output 04/24/20 04/25/20 04/26/20 06:59 06:59 06:59 Intake Total 2351 3190 100 Output Total 525 1100 Balance 1826 2090 100 Weight 91.9 kg 95.6 kg Results Laboratory Results: 04/25/20 06:03 04/25/20 06:03 04/25/20 04/25/20 06:03 06:03 WBC 9.2 RBC 3.78 Hgb 7.3 L Hct 23.5 L MCV 62 L MCH 19.3 L MCHC 31.2 L RDW 17.1 H Plt Count 251 Seg Neutrophils % 82.9 H Sodium 134.7 L Potassium 3.7 Chloride 107 Carbon Dioxide 20 L Anion Gap 8 BUN 12 Creatinine 0.70 Est GFR ( Amer) > 60 Glucose 179 H Calcium 7.8 L Magnesium 1.9 04/22/20 18:43 Groin - Right Gram Stain - Final 04/22/20 18:43 Groin - Right Wound Culture - Final Enterococcus Faecalis(Group D) Prevotella Species Anaerococcus (Peptostrep) Sp. 04/22/20 04/22/20 04/24/20 11:46 11:46 06:02 Creatine Kinase 157 H 182 H CK-MB (CK-2) 1.35 Troponin I < 0.012 Assessment & Plan - Diagnosis (1) Necrotizing fasciitis Is this a current diagnosis for this admission?: Yes - Time Anticipated Discharge Disposition: Home with Home Health Anticipated Discharge Timeframe: unknown - Plan Summary Plan Summary: 54-year-old female with necrotizing fasciitis of the right perineum. The p atient underwent repeat debridement yesterday. The wound today looks good. I have repacked her wound with Kerlix gauze. I will initiate damp to dry dressing changes 3 times daily. She may eat a regular diet. Plan for n.p.o. after midnight again tonight, so that I can examine the wound to determine if further debridement might be necessary. Her white blood cell count is improving, and overall her condition is improving. Long discussion was had with the patient and her family. They are aware of her situation and are in agreement with the treatment plan.
[2020-04-25] MEDS: IRON SUCROSE COMPLEX 300 MG in NORMAL SALINE 250 ML IV SCH (17:30)
--- NOTE | 2020-04-25 21:20 | Progress Note ---
Provider Note Provider Note: [facility] ID Telephone Advice Consultation Chart reviewed. Patient is a 54-year-old woman with hypertension, poorly con trolled DM2 with A1C of 12 who was admitted due to pain and swelling in her right inner thigh, perineum and labia. Per notes, she refered that she developed a boil that worsened and became more painful and swollen. In the ED, she was found with sepsis - WBC 19k, tachypneic, she also had hyperkalemia and was found on DKA with a blood glucose of 479, HCO3 of 13. Surgery service was consulted and he was taken to the OR for soft tissue infection in the right groin. According to the operative note, there was necrotic tissue including skin, soft tissue, fascia, muscle, necrotic tissue, all these was debrided. Two wounds were identified one 7 x 11 x 8 cm, the other 3 x 3 x 6 cm. She was started on ceftriaxone and clindamycin. WBC decreased but she was having fever. She developed diarrhea and clindamycin dose was adjusted. Cultures grew Enterococcus, Prevotella and Anaerococcus. Next day, on 04/24, she was taken to the OR again due to worsening necrotizing infection. Wound was 10 x 10 cm. Vancomycin was added to the regimen. Today per surgery note, the wound looked good, she was made NPO after midnight in case she needs to go back to the OR for further debridement. PMH: DM2 Hypertension Allergies: codeine Allergy (Verified 04/22/20 11:21) orange juice Allergy (Verified 04/22/20 11:21) Penicillins Allergy (Verified 04/22/20 11:21) Sulfa (Sulfonamide Antibiotics) Allergy (Verified 04/22/20 11:21) Medications: Atorvastatin Calcium [Lipitor 40 mg Tablet] 40 mg PO QAM 04/22/20 Furosemide [Lasix 40 mg Tablet] 40 mg PO QAM 04/22/20 Glimepiride [Amaryl 4 mg Tablet] 4 mg PO QAMPM 04/22/20 Insulin Glargine,Hum.rec.anlog [Lantus Insulin 100 Unit/mL Insulin Pen] 40 unit SUBCUT QAM 04/22/20 Telmisartan/Hydrochlorothiazid [Telmisartan-Hctz 40-12.5 mg Tb] 1 each PO QAM 04/22/20 Vital Signs: Temp Pulse Resp BP Pulse Ox 98.2 F 109 H 15 123/51 L 100 04/25/20 17:00 04/25/20 19:00 04/25/20 17:00 04/25/20 17:00 04/25/20 17:00 Intake & Output 04/24/20 04/25/20 04/26/20 06:59 06:59 06:59 Intake Total 2351 3190 680 Output Total 525 1100 250 Balance 1826 2090 430 Weight 91.9 kg 95.6 kg Weight/Height Weight 95.6 kg Height 5 ft Laboratories: 04/25/20 06:03 04/25/20 06:03 MCV 62 fl (80-97) L 04/25/20 06:03 MCH 19.3 pg (27.0-33.4) L 04/25/20 06:03 MCHC 31.2 g/dL (32.0-36.0) L 04/25/20 06:03 RDW 17.1 % (11.5-14.0) H 04/25/20 06:03 Seg Neutrophils % 82.9 % (42-78) H 04/25/20 06:03 Retic Count (auto) 1.76 % (0.66-2.85) 04/23/20 06:20 Carbonic Acid 0.67 mmol/L (1.05-1.35) L 04/22/20 13:39 HCO3/H2CO3 Ratio 17:1 04/22/20 13:39 ABG pH 7.34 (7.35-7.45) L 04/22/20 13:39 ABG pCO2 22.1 mmHg (35-45) L 04/22/20 13:39 ABG pO2 89.1 mmHg (80-100) 04/22/20 13:39 ABG HCO3 11.6 mmol/L (20-24) L 04/22/20 13:39 ABG O2 Saturation 96.6 % (94-98) 04/22/20 13:39 ABG Base Excess -12.7 mmol/L 04/22/20 13:39 FiO2 ROOM AIR 04/22/20 13:39 Chloride 107 mmol/L (98-107) 04/25/20 06:03 Carbon Dioxide 20 mmol/L (22-30) L 04/25/20 06:03 Anion Gap 8 (5-19) 04/25/20 06:03 Est GFR ( Amer) > 60 (>60) 04/25/20 06:03 Glucose 179 mg/dL (75-110) H 04/25/20 06:03 Lactic Acid 1.2 mmol/L (0.7-2.1) 04/22/20 12:47 Calcium 7.8 mg/dL (8.4-10.2) L 04/25/20 06:03 Magnesium 1.9 mg/dL (1.6-2.3) 04/25/20 06:03 Iron < 10.1 ug/dL (37-170) L 04/23/20 06:20 TIBC 605 ug/dL (250-450) H 04/23/20 06:20 Ferritin 46.80 ng/mL (11.1-264.0) 04/23/20 06:20 Total Bilirubin 0.7 mg/dL (0.2-1.3) 04/22/20 11:46 AST 16 U/L (14-36) 04/22/20 11:46 Alkaline Phosphatase 95 U/L (38-126) 04/22/20 11:46 Total Protein 6.5 g/dL (6.3-8.2) 04/22/20 11:46 Albumin 3.7 g/dL (3.5-5.0) 04/22/20 11:46 Vitamin B12 > 1000.0 pg/mL (239-931) H 04/23/20 06:20 Folate 11.10 ng/mL (>2.76) 04/23/20 06:20 Urine Color STRAW 04/22/20 13:19 Urine Appearance CLEAR 04/22/20 13:19 Urine pH 5.0 (5.0-9.0) 04/22/20 13:19 Ur Specific [place] 1.009 04/22/20 13:19 Urine Protein NEGATIVE mg/dL (NEGATIVE) 04/22/20 13:19 Urine Glucose (UA) >=500 mg/dL (NEGATIVE) H 04/22/20 13:19 Urine Ketones 20 mg/dL (NEGATIVE) H 04/22/20 13:19 Urine Blood NEGATIVE (NEGATIVE) 04/22/20 13:19 Urine Nitrite NEGATIVE (NEGATIVE) 04/22/20 13:19 Ur Leukocyte Esterase NEGATIVE (NEGATIVE) 04/22/20 13:19 Urine WBC (Auto) 0 /HPF 04/22/20 13:19 Urine RBC (Auto) 1 /HPF 04/22/20 13:19 04/22/20 04/22/20 04/24/20 11:46 11:46 06:02 Creatine Kinase 157 H 182 H CK-MB (CK-2) 1.35 Troponin I < 0.012 Microbiology: Blood cultures: 04/22 Negative Tissue Culture 04/22 Enterococcus faecalis, Prevotella beta lactamase positive and Anaerococcus Assessment and Recommendations: Patient with uncontrolled DM2 with A1C of 12 admitted with DKA secondarily to necrotizing fasciitis of the right inner thigh and perineum. She is s/p debridement x 2, blood cultures negative. Tissue culture positive for Enterococcus, Anaerococcus and Prevotella. She may need to go back to the OR for better source control, this will be determined tomorrow. Clinically, her vitals and labs have improved. In terms of antibiotic therapy, considering her penicillin allergy, there are less antibiotic options to treat this polymicrobial infection. May consider meropenem 1g every 8 hr, this will cover all organisms. Another option would be combination therapy with vancomycin + ceftriaxone 2g iv daily + metronidazole 500 mg bid. Can discontinue clindamycin as benefit for toxin inhibition is for 73 hr. Unfortunately, due to her penicillin allergy, we don't have an oral option to treat the Enterococcus. She will need at least 7 days of IV antibiotics from the last surgical procedure once source control has been assured by surgery. Better glucose control as well. Please call if questions. An Gay MD [facility] ID [phone]
[2020-04-25] MEDS: ATORVASTATIN CALCIUM 40 MG TABLET PO SCH (21:59)
[2020-04-25] MEDS ORDERED: INSULIN GLARGINE,HUM.REC.ANLOG 1,000 UNIT/10 ML VIAL (PYX) SUBCUT ONE (22:02)
[2020-04-25 22:06] LABS: VANCOMYCIN,TROUGH 13.7 ug/mL (5.0-20.0)
[2020-04-26] MEDS: KETOROLAC TROMETHAMINE INJ/PF 30 MG/1 ML SDV IV PRN (02:56)
[2020-04-26] MEDS: MORPHINE SULFATE 10 MG/ML INJ IV PRN (02:57)
[2020-04-26] MEDS: CLINDAMYCIN 600 MG/D5W RTU 600 MG/50 ML RTUPB IV SCH (05:44)
[2020-04-26 06:16] LABS: ABSOLUTE EOSINOPHILS # (AUTO) 0.1 10^3/uL (0.0-0.6); ABSOLUTE LYMPHOCYTES (AUTO) 0.8 10^3/uL (0.5-4.7); ABSOLUTE MONOCYTES (AUTO) 0.8 10^3/uL (0.1-1.4); ABSOLUTE NEUT (AUTO) 5.7 10^3/uL (1.7-8.2); BASOPHILS % (AUTO) 0.5 % (0-2); EOSINOPHILS % (AUTO) 1.4 % (0-6); HEMATOCRIT 22.8 % (36.0-47.0); LYMPHOCYTES % (AUTO) 10.6 % (13-45); MEAN CORPUSCULAR HEMOGLOBIN 19.3 pg (27.0-33.4); MEAN CORPUSCULAR HGB CONC 30.8 g/dL (32.0-36.0); MEAN CORPUSCULAR VOLUME 63 fl (80-97); MONOCYTES % (AUTO) 11.4 % (3-13); PLATELET COUNT 234 10^3/uL (150-450); RED BLOOD COUNT 3.64 10^6/uL (3.72-5.28); RED CELL DISTRIBUTION WIDTH 17.1 % (11.5-14.0); SEGMENTED NEUTROPHILS % (AUTO) 76.1 % (42-78); TOTAL CELLS COUNTED % (AUTO) 100 %; WHITE BLOOD COUNT 7.5 10^3/uL (4.0-10.5)
[2020-04-26 06:40] LABS: ANION GAP 5 (5-19); BLOOD UREA NITROGEN 14 mg/dL (7-20); CALCIUM 7.9 mg/dL (8.4-10.2); CARBON DIOXIDE 22 mmol/L (22-30); CHLORIDE 109 mmol/L (98-107); GLUCOSE 162 mg/dL (75-110); POTASSIUM 3.5 mmol/L (3.6-5.0)
[2020-04-26 06:46] LABS: ANISOCYTOSIS 1+; HYPOCHROMASIA 2+
[2020-04-26 06:47] LABS: OVALOCYTES 2+; PLATELET COMMENT ADEQUATE
[2020-04-26 07:23] LABS: APPEARANCE,URINE TURBID; BILIRUBIN,URINE NEGATIVE (NEGATIVE); GLUCOSE, URINE 150 mg/dL (NEGATIVE); KETONES,URINE NEGATIVE (NEGATIVE); LEUKOCYTE ESTERASE,URINE NEGATIVE (NEGATIVE); NITRITE,URINE NEGATIVE (NEGATIVE); PROTEIN,URINE 30 mg/dL (NEGATIVE); URINE SPECIFIC GRAVITY 1.024; UROBILINOGEN,URINE NEGATIVE mg/dL (<2.0)
[2020-04-26 07:26] LABS: COLOR,URINE STRAW
[2020-04-26] MEDS ORDERED: MEROPENEM 1 GM VIAL IV SCH (08:00)
[2020-04-26] MEDS ORDERED: NORMAL SALINE 250 ML IV PRN ×2 (08:01)
[2020-04-26] MEDS ORDERED: POTASSIUM CHLORIDE 10 MEQ TABLET.ER PO ONE (08:30)
[2020-04-26] MEDS: INSULIN GLARGINE,HUM.REC.ANLOG 1,000 UNIT/10 ML VIAL SUBCUT SCH ×2 (09:34→20:12)
[2020-04-26] MEDS: INSULIN LISPRO 100 UNIT/ML 3 ML VIAL SUBCUT SCH ×5 (09:34→21:38)
[2020-04-26] MEDS: GLIMEPIRIDE 4 MG TABLET PO SCH (09:35)
[2020-04-26] MEDS: LOSARTAN POTASSIUM 50 MG TABLET PO SCH (09:35)
[2020-04-26] MEDS: HYDROCHLOROTHIAZIDE 12.5 MG TABLET PO SCH (09:35)
[2020-04-26] MEDS: ENOXAPARIN SODIUM INJ 40 MG/0.4 ML DISP.SYRIN SUBCUT SCH (09:36)
[2020-04-26] MEDS: MEROPENEM 1 GM in NORMAL SALINE 50 ML IV SCH ×2 (09:36→20:12)
--- NOTE | 2020-04-26 11:51 | PDOC PROGRESS REPORT ---
Subjective Progress Note for:: 04/26/20 Reason For Visit: DKA,THIGH ABSCESS Physical Exam Vital Signs: Temp Pulse Resp BP Pulse Ox 97.5 F 79 16 116/60 100 04/26/20 08:51 04/26/20 08:51 04/26/20 08:51 04/26/20 08:51 04/26/20 08:51 Intake & Output 04/25/20 04/26/20 04/27/20 06:59 06:59 06:59 Intake Total 3190 1345 1000 Output Total 1100 700 Balance 2090 645 1000 Weight 95.6 kg 95.6 kg Results Laboratory Results: 04/26/20 05:41 04/26/20 05:41 04/26/20 04/26/20 04/26/20 04:30 05:41 05:41 WBC 7.5 RBC 3.64 L Hgb 7.0 L Hct 22.8 L MCV 63 L MCH 19.3 L MCHC 30.8 L RDW 17.1 H Plt Count 234 Seg Neutrophils % 76.1 Sodium 135.6 L Potassium 3.5 L Chloride 109 H Carbon Dioxide 22 Anion Gap 5 BUN 14 Creatinine 0.84 Est GFR ( Amer) > 60 Glucose 162 H Calcium 7.9 L Urine Color STRAW Urine Appearance TURBID Urine pH 6.0 Ur Specific Bessie 1.024 Urine Protein 30 H Urine Glucose (UA) 150 H Urine Ketones NEGATIVE Urine Blood SMALL H Urine Nitrite NEGATIVE Ur Leukocyte Esterase NEGATIVE Urine WBC (Auto) 7 Urine RBC (Auto) 12 Blood Type Antibody Screen 04/26/20 08:40 WBC RBC Hgb Hct MCV MCH MCHC RDW Plt Count Seg Neutrophils % Sodium Potassium Chloride Carbon Dioxide Anion Gap BUN Creatinine Est GFR ( Amer) Glucose Calcium Urine Color Urine Appearance Urine pH Ur Specific Bessie Urine Protein Urine Glucose (UA) Urine Ketones Urine Blood Urine Nitrite Ur Leukocyte Esterase Urine WBC (Auto) Urine RBC (Auto) Blood Type O POSITIVE Antibody Screen NEGATIVE 04/22/20 04/22/20 04/24/20 11:46 11:46 06:02 Creatine Kinase 157 H 182 H CK-MB (CK-2) 1.35 Troponin I < 0.012 Assessment & Plan - Diagnosis (1) Necrotizing fasciitis Is this a current diagnosis for this admission?: Yes - Time Anticipated Discharge Disposition: unknown Anticipated Discharge Timeframe: unknown - Plan Summary Plan Summary: 54-year-old female with necrotizing fasciitis of the right perineum. The patient underwent repeat debridement 2 days ago. The wound looks good again today. There is no sign of progressive necrosis. I will continue with damp to dry dressing changes 3 times daily. She may eat a regular diet. Her white blood cell count has improved again today. Surgery will continue to follow. Discharge planning is paramount at this point. The patient may require SNF placement, she is not able to care for herself at home.
[2020-04-26] MEDS ORDERED: OXYCODONE-ACETAMINOPHEN 5-325 MG TABLET PO PRN (12:35)
--- NOTE | 2020-04-26 13:09 | PDOC PROGRESS REPORT ---
Subjective Progress Note for:: 04/26/20 Subjective:: Patient feels well today. The pain in her surgical site is tolerable. I discussed with Dr. Gomes who states that the wound looks good today. Discussed with her about wound care and preference for placement and she prefers to go home and feels she would be able to manage her wound at home. Reason For Visit: DKA,THIGH ABSCESS Physical Exam Vital Signs: Temp Pulse Resp BP Pulse Ox 97.5 F 79 16 116/60 100 04/26/20 08:51 04/26/20 08:51 04/26/20 08:51 04/26/20 08:51 04/26/20 08:51 Intake & Output 04/25/20 04/26/20 04/27/20 06:59 06:59 06:59 Intake Total 3190 1345 1000 Output Total 1100 700 Balance 2090 645 1000 Weight 95.6 kg 95.6 kg General appearance: PRESENT: no acute distress, cooperative Neck exam: ABSENT: JVD Respiratory exam: PRESENT: symmetrical, unlabored. ABSENT: accessory muscle use, retraction, tachypnea Cardiovascular exam: PRESENT: RRR, +S1, +S2. ABSENT: tachycardia GI/Abdominal exam: PRESENT: soft. ABSENT: rebound, rigid, tenderness Neurological exam: PRESENT: alert, awake, oriented to person, oriented to place, oriented to time Results Laboratory Results: 04/26/20 05:41 04/26/20 05:41 04/26/20 04/26/20 04/26/20 04:30 05:41 05:41 WBC 7.5 RBC 3.64 L Hgb 7.0 L Hct 22.8 L MCV 63 L MCH 19.3 L MCHC 30.8 L RDW 17.1 H Plt Count 234 Seg Neutrophils % 76.1 Sodium 135.6 L Potassium 3.5 L Chloride 109 H Carbon Dioxide 22 Anion Gap 5 BUN 14 Creatinine 0.84 Est GFR ( Amer) > 60 Glucose 162 H Calcium 7.9 L Urine Color STRAW Urine Appearance TURBID Urine pH 6.0 Ur Specific Robbins 1.024 Urine Protein 30 H Urine Glucose (UA) 150 H Urine Ketones NEGATIVE Urine Blood SMALL H Urine Nitrite NEGATIVE Ur Leukocyte Esterase NEGATIVE Urine WBC (Auto) 7 Urine RBC (Auto) 12 Blood Type Antibody Screen 04/26/20 08:40 WBC RBC Hgb Hct MCV MCH MCHC RDW Plt Count Seg Neutrophils % Sodium Potassium Chloride Carbon Dioxide Anion Gap BUN Creatinine Est GFR ( Amer) Glucose Calcium Urine Color Urine Appearance Urine pH Ur Specific Robbins Urine Protein Urine Glucose (UA) Urine Ketones Urine Blood Urine Nitrite Ur Leukocyte Esterase Urine WBC (Auto) Urine RBC (Auto) Blood Type O POSITIVE Antibody Screen NEGATIVE 04/22/20 04/22/20 04/24/20 11:46 11:46 06:02 Creatine Kinase 157 H 182 H CK-MB (CK-2) 1.35 Troponin I < 0.012 Assessment and Plan - Diagnosis (1) Necrotizing fasciitis Is this a current diagnosis for this admission?: Yes Plan: Abscess involving the right thigh and perineal area with necrotizing fasciitis involving her right thigh pectineus muscle and abductor longus Had excision and debridement done on 04/22/2020 in the OR Had another excisional debridement in the OR on 04/24/2020 due to worsening necrotizing fasciitis. Deep tissue culture grew Prevotella, Peptostreptococcus and enterococcus Infectious disease consulted and recommending meropenem 1 g every 8 hours for 7 days from last surgical procedure. Surgery following and states that wound looks good so no further surgical intervention as of now. Will continue to evaluate wound. PICC line will be placed today. We will plan for meropenem until 05/03/2020 [subject to change depending on need for further source control] Percocet as needed. Morphine IV for breakthrough pain. Wet-to-dry dressings 3 times daily as recommended by surgery Patient states she would like to go home upon discharge. We will have physical and occupational therapy evaluation (2) Hyperglycemia due to type 2 diabetes mellitus Qualifiers: Diabetes mellitus intermediate designer insulin use: with intermediate designer use Qualified Code(s): E11.65 - Type 2 diabetes mellitus with hyperglycemia; Z79.4 - [facility] (current) use of insulin Is this a current diagnosis for this admission?: Yes Plan: Home regimen: Lantus 40 units in the morning and glimepiride 4 mg twice a day. However, hemoglobin was 12 on admission indicating very poorly controlled diabetes mellitus. Still having significant postprandial hyperglycemia. Continue Lantus 40 units in the morning [time adjusted to 8 AM], increase p.m. dose to 20 units. Start pre-meal lispro 7 units TIDAC and discontinue glimepiride. Continue to monitor Accu-Cheks (3) Iron (Fe) deficiency anemia Qualifiers: Iron deficiency anemia type: unspecified iron deficiency Qualified Code(s): D50.9 - Iron deficiency anemia, unspecified Is this a current diagnosis for this admission?: Yes Plan: Acute on chronic. Patient is severely iron deficient on blood work. She endorses longstanding menorrhagia and still premenopausal. She denies any form of GI bleed or melena. No bleeding has been noted by staff either. Baseline Hb is 10 but has trended down during this hospitalization partly dilutional and partly blood loss from procedures. Status post 900mg of Venofer We will transfuse 1 unit of blood as hemoglobin is 7 today. At some point after resolution of her current infection, she will need to get endoscopic evaluation for this denisse given age >50. (4) Tachycardia Is this a current diagnosis for this admission?: Yes Plan: Sinus tachycardia likely secondary to pain, current infection as well. Seems to be resolving at this time. (5) Hypotension Qualifiers: Hypotension type: unspecified hypotension type Qualified Code(s): I95.9 - Hypotension, unspecified Is this a current diagnosis for this admission?: Yes Plan: Resolved (6) Sepsis Is this a current diagnosis for this admission?: Yes Plan: Resolved (7) DKA (diabetic ketoacidoses) Qualifiers: Diabetes mellitus type: type 2 Diabetes mellitus complication detail: without coma Qualified Code(s): E11.10 - Type 2 diabetes mellitus with ketoacidosis without coma Is this a current diagnosis for this admission?: Yes Plan: Resolved - Time Time Spent with patient: 15-24 minutes Anticipated Discharge Disposition: Home with Home Health Anticipated Discharge Timeframe: within 48 hours
--- NOTE | 2020-04-26 15:44 | RADIOLOGY REPORT (SQ) ---
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 FLUOROSCOPY TIME: 1.3 minutes 2 images saved to PACS. TECHNIQUE: Fluoroscopic and ultrasound guided PICC placement. LIMITATIONS: None. PROCEDURE: After written consent and assessment were obtained, the patient was brought into the fluo roscopy room and placed supine on the table. Ultrasound evaluation of potential access sites were per formed. After successfully identifying a patent left basilic vein, the left arm was prepped and drape d in a sterile fashion along with the ultrasound probe. The entry site was anesthetized with 1% lidoc vish. A 21 gauge 7 cm needle was advanced through the skin and into the basilic vein under live ultra sound guidance. An ultrasound image was saved to PACS confirming access site. A .018 guide wire was then inserted through the needle and into the venous system. The needle was then removed and an 11 b lade scalpel was used to make a 1cm skin incision. A 5 fr peel-away sheath was advanced over the wir e and into the venous system. A measurement was then made using the existing wire and live fluoroscop ic guidance. The wire was then removed and trimmed. The PICC was advanced through the peel-away sheat h and into the venous system. The peel-away sheath was removed and the catheter was adhered to the pa tients arm with a stat lock. The catheter was then aspirated and flushed and a sterile bandage was pl aced over the access site. A fluoroscopic spot image was saved to PACS confirming the catheter tip w ithin the superior vena cava. IMPRESSION: SUCCESSFUL PLACEMENT OF A 5 FR DUAL LUMEN 37 CM PICC IN THE LEFT BASILIC VEIN. COMMENT: Patient medication list reviewed: Yes- Quality ID# 130:Eligible professional attests to doc umenting in the medical record they obtained, updated, or reviewed the patient's current medications. . Quality ID 145: Final reports for procedures using fluoroscopy that document radiation exposure linh guillermo, or exposure time and number of fluorographic images (if radiation exposure indices are not avail able) Quality ID #76: The patient was prepped and draped using maximum sterile barrier technique including cap, mask, sterile gown, sterile gloves, a large sterile sheet, hand hygiene, and 2% Chlorhexidine fo r cutaneous antisepsis. When ultrasound is used, sterile ultrasound techniques are followed requiring sterile gel and sterile probes. TECHNICAL DOCUMENTATION: JOB ID: [id number] 2010 [employer]- All Rights Reserved rev-01/28 Reading location - IP/workstation name: [email or web address]
[2020-04-26] MEDS: ATORVASTATIN CALCIUM 40 MG TABLET PO SCH (21:01)
[2020-04-26] MEDS: NORMAL SALINE 10 ML SDV (SCHEDULED) IV SCH (21:05)
[2020-04-26 21:55] LABS: HEMATOCRIT 25.6 % (36.0-47.0); HEMOGLOBIN 8.1 g/dL (12.0-15.5); MEAN CORPUSCULAR HEMOGLOBIN 21.1 pg (27.0-33.4); MEAN CORPUSCULAR HGB CONC 31.8 g/dL (32.0-36.0); PLATELET COUNT 284 10^3/uL (150-450); RED BLOOD COUNT 3.85 10^6/uL (3.72-5.28); RED CELL DISTRIBUTION WIDTH 22.3 % (11.5-14.0); WHITE BLOOD COUNT 9.2 10^3/uL (4.0-10.5)
[2020-04-26 21:59] LABS: MEAN CORPUSCULAR VOLUME 67 fl (80-97)
[2020-04-27] MEDS: MEROPENEM 1 GM in NORMAL SALINE 50 ML IV SCH ×3 (01:59→17:35)
[2020-04-27] MEDS: INSULIN LISPRO 100 UNIT/ML 3 ML VIAL SUBCUT SCH ×7 (08:37→22:23)
[2020-04-27] MEDS: HYDROCHLOROTHIAZIDE 12.5 MG TABLET PO SCH (08:58)
--- NOTE | 2020-04-27 09:40 | PDOC PROGRESS REPORT ---
Subjective Progress Note for:: 04/27/20 Subjective:: feels ok Reason For Visit: DKA,THIGH ABSCESS Physical Exam Vital Signs: Temp Pulse Resp BP Pulse Ox 97.7 F 84 16 112/47 L 100 04/27/20 08:15 04/27/20 08:15 04/27/20 08:15 04/27/20 08:15 04/27/20 08:15 Intake & Output 04/26/20 04/27/20 04/28/20 06:59 06:59 06:59 Intake Total 1345 2465 Output Total 700 250 Balance 645 2215 Weight 95.6 kg 95.6 kg General appearance: PRESENT: no acute distress Head exam: PRESENT: normocephalic Eye exam: PRESENT: EOMI Ear exam: PRESENT: normal external ear exam Mouth exam: PRESENT: moist Teeth exam: PRESENT: poor dentation Neck exam: PRESENT: full ROM Respiratory exam: PRESENT: clear to auscultation blanca Cardiovascular exam: PRESENT: RRR Pulses: PRESENT: normal radial pulses, normal femoral pulses Vascular exam: PRESENT: normal capillary refill Breast: PRESENT: Normal GI/Abdominal exam: PRESENT: soft Rectal exam: PRESENT: deferred Gentrourinary exam: PRESENT: other - right groin wound clean dry no areas of necrosis packed iwth wet to dry. Extremities exam: PRESENT: full ROM Musculoskeletal exam: PRESENT: ambulatory Neurological exam: PRESENT: alert, awake, oriented to person, oriented to place Psychiatric exam: PRESENT: appropriate affect Skin exam: PRESENT: dry Results Laboratory Results: 04/26/20 21:45 04/26/20 05:41 04/26/20 04/26/20 08:40 21:45 WBC 9.2 RBC 3.85 Hgb 8.1 L Hct 25.6 L MCV 67 L D MCH 21.1 L MCHC 31.8 L RDW 22.3 H Plt Count 284 Blood Type O POSITIVE Antibody Screen NEGATIVE 04/22/20 04/22/20 04/24/20 11:46 11:46 06:02 Creatine Kinase 157 H 182 H CK-MB (CK-2) 1.35 Troponin I < 0.012 Impressions: PICC Line Insertion 04/26/20 00:00 IMPRESSION: SUCCESSFUL PLACEMENT OF A 5 FR DUAL LUMEN 37 CM PICC IN THE LEFT BASILIC VEIN. Assessment & Plan - Time Anticipated Discharge Disposition: [facility] Anticipated Discharge Timeframe: unk - Plan Summary Plan Summary: Impression is necrotizing fasciitis of the right perineum and right groin status post debridement x2. Wound is now being packed with wet-to-dry saline soaked gauze. The wound is clean there is minimal granulation tissue but no further evidence of fat necrosis or muscle necrosis. We will continue wet-to-dry dressing changes for now. Patient may benefit from a wound VAC in the next few days.
[2020-04-27] MEDS: INSULIN GLARGINE,HUM.REC.ANLOG 1,000 UNIT/10 ML VIAL SUBCUT SCH ×2 (09:46→17:33)
[2020-04-27] MEDS: DOCUSATE SODIUM 100 MG CAPSULE PO SCH (09:47)
[2020-04-27] MEDS: LOSARTAN POTASSIUM 50 MG TABLET PO SCH (09:47)
[2020-04-27] MEDS: ENOXAPARIN SODIUM INJ 40 MG/0.4 ML DISP.SYRIN SUBCUT SCH (09:48)
[2020-04-27] MEDS: NORMAL SALINE 10 ML SDV (SCHEDULED) IV SCH ×2 (10:53→22:00)
--- NOTE | 2020-04-27 15:20 | PDOC PROGRESS REPORT ---
Subjective Progress Note for:: 04/27/20 Subjective:: Complains of pain in the site. Otherwise feels okay. States she wants to go to SNF. Reason For Visit: DKA,THIGH ABSCESS Physical Exam Vital Signs: Temp Pulse Resp BP Pulse Ox 98.0 F 96 16 122/61 99 04/27/20 11:46 04/27/20 14:00 04/27/20 11:46 04/27/20 11:46 04/27/20 11:46 Intake & Output 04/26/20 04/27/20 04/28/20 06:59 06:59 06:59 Intake Total 1345 2465 50 Output Total 700 250 Balance 645 2215 50 Weight 95.6 kg 95.6 kg General appearance: PRESENT: no acute distress, cooperative Neck exam: ABSENT: JVD Respiratory exam: PRESENT: unlabored Neurological exam: PRESENT: alert, awake, oriented to person, oriented to place, oriented to time Results Laboratory Results: 04/26/20 21:45 04/26/20 05:41 04/26/20 04/26/20 08:40 21:45 WBC 9.2 RBC 3.85 Hgb 8.1 L Hct 25.6 L MCV 67 L D MCH 21.1 L MCHC 31.8 L RDW 22.3 H Plt Count 284 Blood Type O POSITIVE Antibody Screen NEGATIVE 04/22/20 12:52 Blood Blood Culture - Final NO GROWTH IN 5 DAYS 04/22/20 11:46 Blood Blood Culture - Final NO GROWTH IN 5 DAYS 04/22/20 04/22/20 04/24/20 11:46 11:46 06:02 Creatine Kinase 157 H 182 H CK-MB (CK-2) 1.35 Troponin I < 0.012 Impressions: PICC Line Insertion 04/26/20 00:00 IMPRESSION: SUCCESSFUL PLACEMENT OF A 5 FR DUAL LUMEN 37 CM PICC IN THE LEFT BASILIC VEIN. Assessment and Plan - Diagnosis (1) Necrotizing fasciitis Is this a current diagnosis for this admission?: Yes Plan: Abscess involving the right thigh and perineal area with necrotizing fasciitis involving her right thigh pectineus muscle and abductor longus Had excision and debridement done on 04/22/2020 in the OR Had another excisional debridement in the OR on 04/24/2020 due to worsening necrotizing fasciitis. Deep tissue culture grew Prevotella, Peptostreptococcus and enterococcus Infectious disease consulted and recommending meropenem 1 g every 8 hours for 7 days from last surgical procedure. Surgery following and states that wound looks good so no further surgical intervention as of now. Will continue to evaluate wound. PICC line will be placed today. We will plan for meropenem until 05/03/2020 [subject to change depending on need for further source control] Percocet as needed. Morphine IV for breakthrough pain. Wet-to-dry dressings 3 times daily as recommended by surgery Patient states she would like to go to SNF upon discharge. PT/OT Dr. Alonzo recommends wound VAC placement on Wednesday. 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 However, hemoglobin was 12 on admission indicating very poorly controlled diabetes mellitus. Blood glucose better controlled today. Continue Lantus 40 units in the morning and 20 units in the evening plus pre- meal lispro 7 units TIDAC. Glimepiride discontinued. Continue to monitor Accu-Cheks (3) Iron (Fe) deficiency anemia Qualifiers: Iron deficiency anemia type: unspecified iron deficiency Qualified Code(s): D50.9 - Iron deficiency anemia, unspecified Is this a current diagnosis for this admission?: Yes Plan: Acute on chronic. Patient is severely iron deficient on blood work. She endorses longstanding menorrhagia and still premenopausal. She denies any form of GI bleed or melena. No bleeding has been noted by staff either. Baseline Hb is 10 but has trended down during this hospitalization partly dilutional and partly blood loss from procedures. Status post 900mg of Venofer We will transfuse 1 unit of blood as hemoglobin is 7 today. At some point after resolution of her current infection, she will need to get endoscopic evaluation for this denisse given age >50. (4) Tachycardia Is this a current diagnosis for this admission?: Yes (5) Hypotension Qualifiers: Hypotension type: unspecified hypotension type Qualified Code(s): I95.9 - Hypotension, unspecified Is this a current diagnosis for this admission?: Yes (6) Sepsis Is this a current diagnosis for this admission?: Yes (7) DKA (diabetic ketoacidoses) Qualifiers: Diabetes mellitus type: type 2 Diabetes mellitus complication detail: without coma Qualified Code(s): E11.10 - Type 2 diabetes mellitus with ketoacidosis without coma Is this a current diagnosis for this admission?: Yes - Time Time Spent with patient: Less than 15 minutes Anticipated Discharge Disposition: Home, Self Care Anticipated Discharge Timeframe: within 72 hours
[2020-04-27] MEDS: OXYCODONE-ACETAMINOPHEN 5-325 MG TABLET PO PRN (17:34)
[2020-04-27] MEDS: MORPHINE SULFATE 10 MG/ML INJ IV PRN (18:12)
[2020-04-27] MEDS: ATORVASTATIN CALCIUM 40 MG TABLET PO SCH (22:22)
[2020-04-28] MEDS: MORPHINE SULFATE 10 MG/ML INJ IV PRN ×2 (01:32→10:06)
[2020-04-28] MEDS ORDERED: MEROPENEM 1 GM VIAL ONE (02:16)
[2020-04-28] MEDS: MEROPENEM 1 GM in NORMAL SALINE 50 ML IV SCH ×3 (02:59→17:25)
[2020-04-28] MEDS: INSULIN LISPRO 100 UNIT/ML 3 ML VIAL SUBCUT SCH ×7 (08:25→21:37)
--- NOTE | 2020-04-28 09:29 | PDOC PROGRESS REPORT ---
Subjective Progress Note for:: 04/28/20 Subjective:: feels better min pain Reason For Visit: DKA,THIGH ABSCESS Physical Exam Vital Signs: Temp Pulse Resp BP Pulse Ox 98.1 F 98 16 141/64 H 96 04/28/20 08:15 04/28/20 08:15 04/28/20 08:15 04/28/20 08:15 04/28/20 08:15 Intake & Output 04/27/20 04/28/20 04/29/20 06:59 06:59 06:59 Intake Total 2465 520 Output Total 250 900 Balance 2215 -380 Weight 95.6 kg 95.4 kg General appearance: PRESENT: no acute distress Head exam: PRESENT: normocephalic Eye exam: PRESENT: EOMI Ear exam: PRESENT: normal external ear exam Mouth exam: PRESENT: moist Teeth exam: PRESENT: poor dentation Neck exam: PRESENT: full ROM Respiratory exam: PRESENT: clear to auscultation blanca Cardiovascular exam: PRESENT: RRR Pulses: PRESENT: normal femoral pulses Vascular exam: PRESENT: normal capillary refill Breast: PRESENT: Normal GI/Abdominal exam: PRESENT: soft Rectal exam: PRESENT: deferred Extremities exam: PRESENT: full ROM, other - less cellulitlils medial thigh wound being packed. min necrosis Neurological exam: PRESENT: alert Psychiatric exam: PRESENT: appropriate affect Skin exam: PRESENT: dry Results Laboratory Results: 04/26/20 21:45 04/26/20 05:41 04/22/20 12:52 Blood Blood Culture - Final NO GROWTH IN 5 DAYS 04/22/20 11:46 Blood Blood Culture - Final NO GROWTH IN 5 DAYS 04/22/20 04/22/20 04/24/20 11:46 11:46 06:02 Creatine Kinase 157 H 182 H CK-MB (CK-2) 1.35 Troponin I < 0.012 Impressions: PICC Line Insertion 04/26/20 00:00 IMPRESSION: SUCCESSFUL PLACEMENT OF A 5 FR DUAL LUMEN 37 CM PICC IN THE LEFT BASILIC VEIN. Assessment & Plan - Time Anticipated Discharge Disposition: Home, Self Care Anticipated Discharge Timeframe: within 72 hours - Plan Summary Plan Summary: wll cont dressing changes today wound vac in am.
[2020-04-28] MEDS: INSULIN GLARGINE,HUM.REC.ANLOG 1,000 UNIT/10 ML VIAL SUBCUT SCH ×2 (09:53→17:40)
[2020-04-28] MEDS: LOSARTAN POTASSIUM 50 MG TABLET PO SCH (09:54)
[2020-04-28] MEDS: ENOXAPARIN SODIUM INJ 40 MG/0.4 ML DISP.SYRIN SUBCUT SCH (09:54)
[2020-04-28] MEDS: HYDROCHLOROTHIAZIDE 12.5 MG TABLET PO SCH (09:54)
[2020-04-28] MEDS: DOCUSATE SODIUM 100 MG CAPSULE PO SCH (09:55)
[2020-04-28] MEDS: NORMAL SALINE 10 ML SDV (SCHEDULED) IV SCH ×2 (09:56→21:37)
[2020-04-28] MEDS: NORMAL SALINE 10 ML SDV (AFTER EACH USE) IV PRN (10:05)
--- NOTE | 2020-04-28 12:03 | PDOC PROGRESS REPORT ---
Subjective Progress Note for:: 04/28/20 Subjective:: Patient feels well no complaints. Walked with physical therapy. Reason For Visit: DKA,THIGH ABSCESS Physical Exam Vital Signs: Temp Pulse Resp BP Pulse Ox 98.1 F 98 16 141/64 H 96 04/28/20 08:15 04/28/20 08:15 04/28/20 08:15 04/28/20 08:15 04/28/20 08:15 Intake & Output 04/27/20 04/28/20 04/29/20 06:59 06:59 06:59 Intake Total 2465 520 Output Total 250 900 Balance 2215 -380 Weight 95.6 kg 95.4 kg General appearance: PRESENT: no acute distress, cooperative Neck exam: ABSENT: JVD Neurological exam: PRESENT: alert, awake, oriented to person, oriented to place, oriented to time Results Laboratory Results: 04/26/20 21:45 04/26/20 05:41 04/22/20 12:52 Blood Blood Culture - Final NO GROWTH IN 5 DAYS 04/22/20 11:46 Blood Blood Culture - Final NO GROWTH IN 5 DAYS 04/22/20 04/22/20 04/24/20 11:46 11:46 06:02 Creatine Kinase 157 H 182 H CK-MB (CK-2) 1.35 Troponin I < 0.012 Impressions: PICC Line Insertion 04/26/20 00:00 IMPRESSION: SUCCESSFUL PLACEMENT OF A 5 FR DUAL LUMEN 37 CM PICC IN THE LEFT BASILIC VEIN. Assessment and Plan - Diagnosis (1) Necrotizing fasciitis Is this a current diagnosis for this admission?: Yes Plan: Abscess involving the right thigh and perineal area with necrotizing fasciitis involving her right thigh pectineus muscle and abductor longus Had excision and debridement done on 04/22/2020 in the OR Had another excisional debridement in the OR on 04/24/2020 due to worsening necrotizing fasciitis. Deep tissue culture grew Prevotella, Peptostreptococcus and enterococcus ID recs: meropenem 1 g every 8 hours for 7 days from last surgical procedure. Meropenem until 05/03/2020 [subject to change depending on need for further source control] via PICC line. Percocet as needed. Wet-to-dry dressings 3 times daily as recommended by surgery. Patient states she would like to go to SNF upon discharge. Dr. Alonzo recommends wound VAC placement on Wednesday. 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 A1c 12 on admission. New regimen of Lantus 40 units in the morning and 20 units in the evening plus pre-meal lispro 7 units TIDAC seems to be working better. Glimepiride discontinued. Continue to monitor Accu-Cheks (3) Iron (Fe) deficiency anemia Qualifiers: Iron deficiency anemia type: unspecified iron deficiency Qualified Code(s): D50.9 - Iron deficiency anemia, unspecified Is this a current diagnosis for this admission?: Yes Plan: Acute on chronic. Severely iron deficient on blood work. Working dx is longstanding menorrhagia and still premenopausal. She denies any form of GI bleed or melena. No bleeding has been noted by staff either during hospitalization. Baseline Hb is 10 but has trended down during this hospitalization partly dilutional and partly blood loss from procedures. Status post 900mg of Venofer and 1unit prbc earlier in hospitalization. At some point after resolution of her current infection, she will need to get endoscopic evaluation for this denisse given age >50. (4) Tachycardia Is this a current diagnosis for this admission?: Yes Plan: resolved (5) Hypotension Qualifiers: Hypotension type: other hypotension type Qualified Code(s): I95.89 - Other hypotension Is this a current diagnosis for this admission?: Yes Plan: Resolved (6) Sepsis Is this a current diagnosis for this admission?: Yes Plan: Resolved (7) DKA (diabetic ketoacidoses) Qualifiers: Diabetes mellitus type: type 2 Diabetes mellitus complication detail: without coma Qualified Code(s): E11.10 - Type 2 diabetes mellitus with ketoacidosis without coma Is this a current diagnosis for this admission?: Yes Plan: Resolved - Time Time Spent with patient: Less than 15 minutes Anticipated Discharge Disposition: Assisted Facility Anticipated Discharge Timeframe: within 48 hours
[2020-04-28] MEDS ORDERED: MORPHINE SULFATE 10 MG/ML INJ IV PRN (14:30)
[2020-04-28] MEDS: OXYCODONE-ACETAMINOPHEN 5-325 MG TABLET PO PRN (19:51)
[2020-04-28] MEDS: ATORVASTATIN CALCIUM 40 MG TABLET PO SCH (21:37)
[2020-04-29] MEDS: MEROPENEM 1 GM in NORMAL SALINE 50 ML IV SCH ×3 (02:52→17:45)
[2020-04-29] MEDS: OXYCODONE-ACETAMINOPHEN 5-325 MG TABLET PO PRN (04:36)
[2020-04-29] MEDS ORDERED: MORPHINE SULFATE 10 MG/ML INJ IV PRN (06:00)
[2020-04-29 06:13] LABS: HEMATOCRIT 27.6 % (36.0-47.0); HEMOGLOBIN 8.8 g/dL (12.0-15.5); MEAN CORPUSCULAR HEMOGLOBIN 21.4 pg (27.0-33.4); MEAN CORPUSCULAR HGB CONC 31.9 g/dL (32.0-36.0); MEAN CORPUSCULAR VOLUME 67 fl (80-97); PLATELET COUNT 310 10^3/uL (150-450); RED BLOOD COUNT 4.11 10^6/uL (3.72-5.28); RED CELL DISTRIBUTION WIDTH 22.2 % (11.5-14.0); WHITE BLOOD COUNT 9.1 10^3/uL (4.0-10.5)
[2020-04-29] MEDS: INSULIN GLARGINE,HUM.REC.ANLOG 1,000 UNIT/10 ML VIAL SUBCUT SCH ×2 (08:39→17:45)
[2020-04-29] MEDS: INSULIN LISPRO 100 UNIT/ML 3 ML VIAL SUBCUT SCH ×7 (08:40→22:32)
[2020-04-29] MEDS: HYDROCHLOROTHIAZIDE 12.5 MG TABLET PO SCH (08:40)
[2020-04-29] MEDS: DOCUSATE SODIUM 100 MG CAPSULE PO SCH (10:15)
[2020-04-29] MEDS: LOSARTAN POTASSIUM 50 MG TABLET PO SCH (10:43)
[2020-04-29] MEDS: ENOXAPARIN SODIUM INJ 40 MG/0.4 ML DISP.SYRIN SUBCUT SCH (10:43)
[2020-04-29] MEDS: NORMAL SALINE 10 ML SDV (SCHEDULED) IV SCH ×2 (10:44→22:33)
--- NOTE | 2020-04-29 12:29 | PDOC PROGRESS REPORT ---
Subjective Progress Note for:: 04/29/20 Subjective:: Mild pains from the right groin debridement site Reason For Visit: DKA,THIGH ABSCESS Physical Exam Vital Signs: Temp Pulse Resp BP Pulse Ox 98.2 F 85 19 139/61 H 99 04/29/20 04:09 04/29/20 07:00 04/29/20 04:09 04/29/20 04:09 04/29/20 04:09 Intake & Output 04/28/20 04/29/20 04/30/20 06:59 06:59 06:59 Intake Total 520 372 Output Total 900 300 Balance -380 72 Weight 95.4 kg 95.2 kg Exam: Right groin debridement area looks clean. A wound VAC was applied on the right groin with the help of the patient's nurse. Results Laboratory Results: 04/29/20 05:30 04/26/20 05:41 04/29/20 05:30 WBC 9.1 RBC 4.11 Hgb 8.8 L Hct 27.6 L MCV 67 L MCH 21.4 L MCHC 31.9 L RDW 22.2 H Plt Count 310 04/22/20 04/22/20 04/24/20 11:46 11:46 06:02 Creatine Kinase 157 H 182 H CK-MB (CK-2) 1.35 Troponin I < 0.012 Impressions: PICC Line Insertion 04/26/20 00:00 IMPRESSION: SUCCESSFUL PLACEMENT OF A 5 FR DUAL LUMEN 37 CM PICC IN THE LEFT BASILIC VEIN. Assessment & Plan - Time Critical Time spent with patient: 15-24 minutes Anticipated Discharge Disposition: Home with Home Health Anticipated Discharge Timeframe: within 72 hours - Plan Summary Plan Summary: wll cont dressing changes today wound vac in am. A wound VAC was placed on the right groin morning of 04/29/[address] Wang. Discussed with Dr. Dupont. Patient can be discharged to home or wound care center. Continue with wound VAC every 3 days and follow-up at the wound care center in 2 weeks
--- NOTE | 2020-04-29 18:14 | PDOC PROGRESS REPORT ---
Subjective Progress Note for:: 04/29/20 Subjective:: Patient feels better. She has decided that she wants to go home with home health at this point. Wound VAC was placed this morning. Discussed with kit planner to plan for discharge home with VAC. Reason For Visit: DKA,THIGH ABSCESS Physical Exam Vital Signs: Temp Pulse Resp BP Pulse Ox 98.2 F 93 19 139/61 H 99 04/29/20 04:09 04/29/20 14:00 04/29/20 04:09 04/29/20 04:09 04/29/20 04:09 Intake & Output 04/28/20 04/29/20 04/30/20 06:59 06:59 06:59 Intake Total 520 372 50 Output Total 900 300 50 Balance -380 72 0 Weight 95.4 kg 95.2 kg General appearance: PRESENT: no acute distress, cooperative Neck exam: ABSENT: JVD Respiratory exam: PRESENT: clear to auscultation blanca, unlabored Extremities exam: PRESENT: other - Wound VAC in place with good seal Neurological exam: PRESENT: alert, awake Results Laboratory Results: 04/29/20 05:30 04/26/20 05:41 04/29/20 05:30 WBC 9.1 RBC 4.11 Hgb 8.8 L Hct 27.6 L MCV 67 L MCH 21.4 L MCHC 31.9 L RDW 22.2 H Plt Count 310 04/22/20 04/22/20 04/24/20 11:46 11:46 06:02 Creatine Kinase 157 H 182 H CK-MB (CK-2) 1.35 Troponin I < 0.012 Impressions: PICC Line Insertion 04/26/20 00:00 IMPRESSION: SUCCESSFUL PLACEMENT OF A 5 FR DUAL LUMEN 37 CM PICC IN THE LEFT BASILIC VEIN. Assessment and Plan - Diagnosis (1) Necrotizing fasciitis Is this a current diagnosis for this admission?: Yes Plan: Abscess involving the right thigh and perineal area with necrotizing fasciitis involving her right thigh pectineus muscle and abductor longus Had excision and debridement done on 04/22/2020 in the OR Had another excisional debridement in the OR on 04/24/2020 due to worsening necrotizing fasciitis. Deep tissue culture grew Prevotella, Peptostreptococcus and enterococcus ID recs: meropenem 1 g every 8 hours for 7 days from last surgical procedure. Meropenem until 05/03/2020 [subject to change depending on need for further source control] via PICC line. Percocet as needed. Wet-to-dry dressings 3 times daily as recommended by surgery. Patient states she would like to go to SNF upon discharge. Dr. Alonzo recommends wound VAC placement on Wednesday. 04/29/2029. Wound VAC placed this morning with good seal. Discharge planning consulted to obtain wound VAC for patient, set up home health with senior care for wound management and to arrange for meropenem on 2 05/03/[address] Noemi crump recommends wound VAC changing every 3 days. Once these get set up, patient can be discharged likely tomorrow. 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 A1c 12 on admission. New regimen of Lantus 40 units in the morning and 20 units in the evening plus pre-meal lispro 7 units TIDAC seems to be working better. Glimepiride discontinued. Continue to monitor Accu-Cheks (3) Iron (Fe) deficiency anemia Qualifiers: Iron deficiency anemia type: unspecified iron deficiency Qualified Code(s): D50.9 - Iron deficiency anemia, unspecified Is this a current diagnosis for this admission?: Yes Plan: Acute on chronic. Severely iron deficient on blood work. Working dx is longstanding menorrhagia and still premenopausal. She denies any form of GI bleed or melena. No bleeding has been noted by staff either during hospitalization. Baseline Hb is 10 but has trended down during this hospitalization partly dilut ional and partly blood loss from procedures. Status post 900mg of Venofer and 1unit prbc earlier in hospitalization. At some point after resolution of her current infection, she will need to get outpatient endoscopic evaluation for this denisse given age >50. Give GI referral upon discharge. (4) Tachycardia Is this a current diagnosis for this admission?: Yes Plan: resolved (5) Hypotension Qualifiers: Hypotension type: other hypotension type Qualified Code(s): I95.89 - Other hypotension Is this a current diagnosis for this admission?: Yes Plan: Resolved (6) Sepsis Is this a current diagnosis for this admission?: Yes Plan: Resolved (7) DKA (diabetic ketoacidoses) Qualifiers: Diabetes mellitus type: type 2 Diabetes mellitus complication detail: without coma Qualified Code(s): E11.10 - Type 2 diabetes mellitus with ketoacidosis without coma Is this a current diagnosis for this admission?: Yes Plan: Resolved - Time Time Spent with patient: Less than 15 minutes Anticipated Discharge Disposition: Home with Home Health Anticipated Discharge Timeframe: within 24 hours
[2020-04-29] MEDS: ATORVASTATIN CALCIUM 40 MG TABLET PO SCH (22:32)
[2020-04-30] MEDS: MEROPENEM 1 GM in NORMAL SALINE 50 ML IV SCH ×3 (02:13→18:34)
[2020-04-30] MEDS: DOCUSATE SODIUM 100 MG CAPSULE PO SCH (09:20)
[2020-04-30] MEDS: INSULIN LISPRO 100 UNIT/ML 3 ML VIAL SUBCUT SCH ×7 (09:20→22:28)
[2020-04-30] MEDS: ENOXAPARIN SODIUM INJ 40 MG/0.4 ML DISP.SYRIN SUBCUT SCH (10:01)
[2020-04-30] MEDS: HYDROCHLOROTHIAZIDE 12.5 MG TABLET PO SCH (10:01)
[2020-04-30] MEDS: NORMAL SALINE 10 ML SDV (SCHEDULED) IV SCH ×2 (10:01→22:28)
[2020-04-30] MEDS: LOSARTAN POTASSIUM 50 MG TABLET PO SCH (10:01)
[2020-04-30] MEDS: INSULIN GLARGINE,HUM.REC.ANLOG 1,000 UNIT/10 ML VIAL SUBCUT SCH ×2 (10:02→18:35)
[2020-04-30] MEDS ORDERED: NORMAL SALINE 1000 ML 1,000 ML IV ONE (12:09)
--- NOTE | 2020-04-30 12:40 | PDOC DISCHARGE SUMMARY ---
Impression - Admit/DC Date/PCP Admission Date/Primary Care Provider: 04/22/20 15:13 JAZMIN ANAYA MD Discharge Date: 04/30/20 - Discharge Diagnosis (1) Necrotizing fasciitis Is this a current diagnosis for this admission?: Yes (2) Hyperglycemia due to type 2 diabetes mellitus Is this a current diagnosis for this admission?: Yes (3) Iron (Fe) deficiency anemia Is this a current diagnosis for this admission?: Yes (4) Tachycardia Is this a current diagnosis for this admission?: Yes (5) Hypotension Is this a current diagnosis for this admission?: Yes - Additional Information Resuscitation Status: Full Code Discharge Diet: Cardiac, Diabetic Discharge Activity: Activity As Tolerated, Balance Activity w/Rest Referrals: WOUND CARE [Outside] - 05/10/20 10:00 am JAZMIN ANAYA MD [Primary Care Provider] - 05/06/20 10:00 am Prescriptions: Meropenem [Merrem 1 gm Vial] 1 gm IV Q8A 3 Days #10 vial Oxycodone HCl/Acetaminophen [Percocet 5-325 mg Tablet] 1 tab PO Q8H PRN #12 tab PRN Reason: For Pain Scale 3-5 Home Medications: Atorvastatin Calcium [Lipitor 40 mg Tablet] 40 mg PO QAM 04/22/20 Furosemide [Lasix 40 mg Tablet] 40 mg PO QAM 04/22/20 Glimepiride [Amaryl 4 mg Tablet] 4 mg PO QAMPM 04/22/20 Insulin Glargine,Hum.rec.anlog [Lantus Insulin 100 Unit/mL Insulin Pen] 40 unit SUBCUT QAM 04/22/20 Telmisartan/Hydrochlorothiazid [Telmisartan-Hctz 40-12.5 mg Tb] 1 each PO QAM 04/22/20 Acetaminophen [Tylenol 325 mg Tablet] 650 mg PO Q4HP PRN tablet 04/30/20 Atorvastatin Calcium [Lipitor 40 mg Tablet] 40 mg PO QHS tablet 04/30/20 Insulin Glargine,Hum.rec.anlog [Lantus Insulin 100 Unit/1 ml 10 ml] 20 unit SUBCUT QPM unit 04/30/20 Insulin Glargine,Hum.rec.anlog [Lantus Insulin 100 Unit/1 ml 10 ml] 40 unit SUBCUT QAM unit 04/30/20 Insulin Lispro [Humalog Insulin (Lispro) 100 unit/mL] 7 unit SUBCUT AC unit 04/30/20 Meropenem [Merrem 1 gm Vial] 1 gm IV Q8A 3 Days #10 vial 04/30/20 Oxycodone HCl/Acetaminophen [Percocet 5-325 mg Tablet] 1 tab PO Q8H PRN #12 tab 04/30/20 History of Present Illiness History of Present Illness: SENAIT BISHOP is a 54 year old female with history of diabetes mellitus type 2, hypertension, who presents to the hospital with complaints of pain swelling and induration in her right thigh/perineal area. This has been present for the past few days and progressive. She describes it as a boil. Denies any drainage from the area but notes that is quite tender. Denies any trauma to the area. She has also noted that her sugars have been running high at home. She denies noncompliance with her insulin regimen. Denies any shortness of breath, chest pain cough nausea vomiting. Does however admit some dry heaves earlier today. Hospital Course Hospital Course: The patient was found to have an abscess in the groin. Upon surgical debridement necrotizing fasciitis was present. She had 2 surgeries I believe. It was polymicrobial with anaerobic bacteria as well as enterococcus. They would all be sensitive to Unasyn however the patient has a penicillin allergy. She is tolerating her meropenem. We are trying to arrange home IV antibiotics and follow-up with the wound care center. The patient will need weekly debridem ents and close monitoring of her negative pressure wound therapy. She does have a significant amount of pain with dressing changes. Because of the location so close to the inguinal fold skin moisture is creating a problem with maintaining a good seal. Physical Exam Vital Signs: Temp Pulse Resp BP Pulse Ox 98.0 F 89 16 130/59 H 99 04/30/20 10:53 04/30/20 07:59 04/30/20 07:59 04/30/20 07:59 04/30/20 07:59 Intake & Output 04/29/20 04/30/20 05/01/20 06:59 06:59 06:59 Intake Total 372 864 50 Output Total 300 50 Balance 72 814 50 Weight 95.2 kg 97.2 kg General appearance: PRESENT: mild distress Head exam: PRESENT: atraumatic, normocephalic Respiratory exam: PRESENT: clear to auscultation blanca, symmetrical, unlabored. ABSENT: rales, rhonchi, tachypnea, wheezes Cardiovascular exam: PRESENT: RRR, +S1, +S2. ABSENT: bradycardia, diastolic murmur, irregular rhythm, systolic murmur, tachycardia GI/Abdominal exam: PRESENT: normal bowel sounds, soft. ABSENT: distended, tenderness Rectal exam: PRESENT: deferred Gentrourinary exam: PRESENT: other - Redness bilateral upper thighs/groin. ABSENT: indwelling catheter Extremities exam: ABSENT: pedal edema Musculoskeletal exam: PRESENT: ambulatory, normal inspection. ABSENT: deformity, dislocation Neurological exam: PRESENT: alert, awake, oriented to person, oriented to place, oriented to time, oriented to situation, CN II-XII grossly intact. ABSENT: altered, motor sensory deficit Psychiatric exam: PRESENT: appropriate affect - Affect reflects her current discomfort. ABSENT: agitated, anxious Focused psych exam: ABSENT: delusional, paranoid, restlessness Skin exam: PRESENT: dry, erythema - In the groin area as noted above, warm. ABSENT: rash Results Laboratory Results: WBC 9.1 10^3/uL (4.0-10.5) 04/29/20 05:30 RBC 4.11 10^6/uL (3.72-5.28) 04/29/20 05:30 Hgb 8.8 g/dL (12.0-15.5) L 04/29/20 05:30 Hct 27.6 % (36.0-47.0) L 04/29/20 05:30 MCV 67 fl (80-97) L 04/29/20 05:30 MCH 21.4 pg (27.0-33.4) L 04/29/20 05:30 MCHC 31.9 g/dL (32.0-36.0) L 04/29/20 05:30 RDW 22.2 % (11.5-14.0) H 04/29/20 05:30 Plt Count 310 10^3/uL (150-450) 04/29/20 05:30 Lymph % (Auto) 10.6 % (13-45) L 04/26/20 05:41 [place] % (Auto) 11.4 % (3-13) 04/26/20 05:41 Eos % (Auto) 1.4 % (0-6) 04/26/20 05:41 Baso % (Auto) 0.5 % (0-2) 04/26/20 05:41 Reticulocyte # 0.077 10^6/uL (0.028-0.122) 04/23/20 06:20 Absolute Neuts (auto) 5.7 10^3/uL (1.7-8.2) 04/26/20 05:41 Absolute Lymphs (auto) 0.8 10^3/uL (0.5-4.7) 04/26/20 05:41 Absolute Monos (auto) 0.8 10^3/uL (0.1-1.4) 04/26/20 05:41 Absolute Eos (auto) 0.1 10^3/uL (0.0-0.6) 04/26/20 05:41 Absolute Basos (auto) 0.0 10^3/uL (0.0-0.2) 04/26/20 05:41 Total Counted 100 04/23/20 06:20 Seg Neutrophils % 76.1 % (42-78) 04/26/20 05:41 Seg Neuts % (Manual) 81 % (42-78) H 04/23/20 06:20 Band Neutrophils % 1 % (3-5) L 04/23/20 06:20 Lymphocytes % (Manual) 9 % (13-45) L 04/23/20 06:20 Monocytes % (Manual) 8 % (3-13) 04/23/20 06:20 Eosinophils % (Manual) 0 % (0-6) 04/23/20 06:20 Basophils % (Manual) 1 % (0-2) 04/23/20 06:20 Abs Neuts (Manual) 11.2 10^3/uL (1.7-8.2) H 04/23/20 06:20 Abs Lymphs (Manual) 1.2 10^3/uL (0.5-4.7) 04/23/20 06:20 Abs Monocytes (Manual) 1.1 10^3/uL (0.1-1.4) 04/23/20 06:20 Absolute Eos (Manual) 0.0 10^3/uL (0.0-0.6) 04/23/20 06:20 Abs Basophils (Manual) 0.1 10^3/uL (0.0-0.2) 04/23/20 06:20 Toxic Granulation SLIGHT 04/25/20 06:03 Clumped Platelets PRESENT 04/25/20 06:03 Platelet Comment ADEQUATE 04/26/20 05:41 Polychromasia SLIGHT 04/25/20 06:03 Hypochromasia 2+ 04/26/20 05:41 Poikilocytosis 1+ 04/25/20 06:03 Basophilic Stippling PRESENT 04/24/20 06:02 Anisocytosis 1+ 04/26/20 05:41 Microcytosis 3+ 04/26/20 05:41 Tear Drop Cells SLIGHT 04/25/20 06:03 Ovalocytes 2+ 04/26/20 05:41 Gale Cells SLIGHT 04/25/20 06:03 Retic Count (auto) 1.76 % (0.66-2.85) 04/23/20 06:20 Carbonic Acid 0.67 mmol/L (1.05-1.35) L 04/22/20 13:39 HCO3/H2CO3 Ratio 17:1 04/22/20 13:39 ABG pH 7.34 (7.35-7.45) L 04/22/20 13:39 ABG pCO2 22.1 mmHg (35-45) L 04/22/20 13:39 ABG pO2 89.1 mmHg (80-100) 04/22/20 13:39 ABG HCO3 11.6 mmol/L (20-24) L 04/22/20 13:39 ABG Total CO2 12.3 mmol/L (21-25) L 04/22/20 13:39 ABG O2 Saturation 96.6 % (94-98) 04/22/20 13:39 ABG Base Excess -12.7 mmol/L 04/22/20 13:39 FiO2 ROOM AIR 04/22/20 13:39 Sodium 135.6 mmol/L (137-145) L 04/26/20 05:41 Potassium 3.5 mmol/L (3.6-5.0) L 04/26/20 05:41 Chloride 109 mmol/L (98-107) H 04/26/20 05:41 Carbon Dioxide 22 mmol/L (22-30) 04/26/20 05:41 Anion Gap 5 (5-19) 04/26/20 05:41 BUN 14 mg/dL (7-20) 04/26/20 05:41 Creatinine 0.84 mg/dL (0.52-1.25) 04/26/20 05:41 Est GFR ( Amer) > 60 (>60) 04/26/20 05:41 Est GFR (MDRD) Non-Af > 60 (>60) 04/26/20 05:41 Glucose 162 mg/dL (75-110) H 04/26/20 05:41 POC Glucose 115 mg/dL (70-110) H 04/30/20 08:08 Hemoglobin A1c % 12.8 % (4.7-6.0) H 04/22/20 11:46 Lactic Acid 1.2 mmol/L (0.7-2.1) 04/22/20 12:47 Calcium 7.9 mg/dL (8.4-10.2) L 04/26/20 05:41 Magnesium 1.9 mg/dL (1.6-2.3) 04/25/20 06:03 Iron < 10.1 ug/dL (37-170) L 04/23/20 06:20 TIBC 605 ug/dL (250-450) H 04/23/20 06:20 Iron Saturation UNABLE TO CALCULATE % (15% - 50%) 04/23/20 06:20 Ferritin 46.80 ng/mL (11.1-264.0) 04/23/20 06:20 Total Bilirubin 0.7 mg/dL (0.2-1.3) 04/22/20 11:46 Direct Bilirubin 0.1 mg/dL (0.0-0.4) 04/22/20 11:46 Neonat Total Bilirubin Not Reportable 04/22/20 11:46 Neonat Direct Bilirubin Not Reportable 04/22/20 11:46 Neonat Indirect Bili Not Reportable 04/22/20 11:46 AST 16 U/L (14-36) 04/22/20 11:46 ALT 11 U/L (<35) 04/22/20 11:46 Alkaline Phosphatase 95 U/L (38-126) 04/22/20 11:46 Creatine Kinase 182 U/L (30-135) H 04/24/20 06:02 CK-MB (CK-2) 1.35 ng/mL (<4.55) 04/22/20 11:46 Troponin I < 0.012 ng/mL 04/22/20 11:46 Total Protein 6.5 g/dL (6.3-8.2) 04/22/20 11:46 Albumin 3.7 g/dL (3.5-5.0) 04/22/20 11:46 Vitamin B12 > 1000.0 pg/mL (239-931) H 04/23/20 06:20 Folate 11.10 ng/mL (>2.76) 04/23/20 06:20 Urine Color STRAW 04/26/20 04:30 Urine Appearance TURBID 04/26/20 04:30 Urine pH 6.0 (5.0-9.0) 04/26/20 04:30 Ur Specific [place] 1.024 04/26/20 04:30 Urine Protein 30 mg/dL (NEGATIVE) H 04/26/20 04:30 Urine Glucose (UA) 150 mg/dL (NEGATIVE) H 04/26/20 04:30 Urine Ketones NEGATIVE mg/dL (NEGATIVE) 04/26/20 04:30 Urine Blood SMALL (NEGATIVE) H 04/26/20 04:30 Urine Nitrite NEGATIVE (NEGATIVE) 04/26/20 04:30 Urine Bilirubin NEGATIVE (NEGATIVE) 04/26/20 04:30 Urine Urobilinogen NEGATIVE mg/dL (<2.0) 04/26/20 04:30 Ur Leukocyte Esterase NEGATIVE (NEGATIVE) 04/26/20 04:30 Urine WBC (Auto) 7 /HPF 04/26/20 04:30 Urine RBC (Auto) 12 /HPF 04/26/20 04:30 U Hyaline Cast (Auto) 2 /LPF 04/22/20 13:19 Urine Bacteria (Auto) 2+ /HPF 04/26/20 04:30 Urine WBC Clumps MOD /HPF 04/26/20 04:30 Squamous Epi Cells Auto <1 /HPF 04/22/20 13:19 Urine Mucus (Auto) FEW /LPF 04/26/20 04:30 Urine Yeast (Budding) PRESENT /HPF 04/26/20 04:30 Urine Ascorbic Acid NEGATIVE (NEGATIVE) 04/26/20 04:30 Time Trough Drawn 2129 08/13/20 21:29 Vancomycin Trough 13.7 ug/mL (5.0-20.0) 04/25/20 21:29 SARS-CoV-2 (PCR) NEGATIVE (NEGATIVE) 04/22/20 13:39 Slides for Path Review PATHOLOGIST REVIEWED 04/22/20 11:46 Blood Type O POSITIVE 04/26/20 08:40 Antibody Screen NEGATIVE 04/26/20 08:40 Crossmatch See Detail 04/26/20 08:40 04/22/20 11:46 CK-MB (CK-2) 1.35 Troponin I < 0.012 Impressions: PICC Line Insertion 04/26/20 00:00 IMPRESSION: SUCCESSFUL PLACEMENT OF A 5 FR DUAL LUMEN 37 CM PICC IN THE LEFT BASILIC VEIN. Plan Health Concerns: Polymicrobial abscess causing necrotizing fasciitis in the right groin area. Extremely deep wound remains. The wound measures approximately 12 inches long by 4 inches wide by 6 inches deep. There are areas of fibrin deposition and nonviable tissue which will need weekly debridements and Wednesday, Wednesday and Wednesday VAC changes. Currently the VAC is at -150 mm pressure. Current dressing is a small piece of white foam deep in the wound was a larger piece of black granular foam covering. There is a bridge that allows the sensory track pad to be attached on the anterior thigh. Plan of Treatment: Home infusion therapy to complete antibiotics. End of treatment is May 03. Home health for wound care and weekly visits to the wound care center. Surgical follow-up in approximately 2 weeks. Goals: Complete healing of the wound. Time Spent: Greater than 30 Minutes Stroke Is this a Stroke Patient?: No Acute Heart Failure - Is this a Heart Failure Patient?: No
[2020-04-30] MEDS ORDERED: MORPHINE SULFATE 10 MG/ML INJ ONE (15:52)
--- NOTE | 2020-04-30 17:15 | Progress Note ---
Provider Note Provider Note: There is been a problem maintaining a seal on the wound VAC. For this reason I changed the dressing and applied the new VAC dressing today. The wound measures 12 inches long by 4 inches wide and 6 inches deep at the deepest point. There was a single piece of black granular foam. There is maceration of the skin not only in the right groin and inside thigh but also the left inside thigh. The old granular foam was removed. The area was cleaned with normal saline. There was some epidermal sloughing as well. The right side of the mons pubis and labia were shaved to decrease pain with dressing changes. Because of the significant skin irritation I used a layer of drape to frame the wound opening. Skin-Prep was placed initially and this was allowed to dry thoroughly. I then pieced together drape to completely cover the wound margins. I then cut an approximately 2 inch x 4 inch piece of white foam and rounded the corners. I placed this in the deepest section of the wound where there was exposed muscle tissue. I then cut a piece of black granu-foam to fit and placed that in the larger portion of the wound. I formed a bridge with black foam that extended from the superior portion of the wound to the anterior right thigh. I then placed a layer of drape to cover the entire dressing as well as a strip to cover the bridge portion. I cut a [place] at the end of the bridge and applied the sensory track pad. The setting was adjusted to 150 mm negative pressure. When the machine was powered on a leak was detected. This was along the infero-medial portion of the wound. This is where moisture tends to accumulate. 2 pieces of drape were placed and skin prep was used to treat the margins of the drape. A seal was in fact achieved and the dressing will likely need to be changed on Wednesday in order to maintain a Wednesday, Wednesday and Wednesday schedule. The patient did require 5 mg of morphine IV as the dressing change is quite painful.
[2020-04-30] MEDS ORDERED: MORPHINE SULFATE 10 MG/ML INJ IV ONE (18:00)
--- NOTE | 2020-04-30 18:03 | PDOC PROGRESS REPORT ---
Subjective Progress Note for:: 04/30/20 Subjective:: Mild pains from the right groin wound VAC area Reason For Visit: DKA,THIGH ABSCESS Physical Exam Vital Signs: Temp Pulse Resp BP Pulse Ox 98.0 F 100 16 137/60 H 97 04/30/20 12:17 04/30/20 14:00 04/30/20 12:17 04/30/20 12:17 04/30/20 12:17 Intake & Output 04/29/20 04/30/20 05/01/20 06:59 06:59 06:59 Intake Total 372 864 50 Output Total 300 50 Balance 72 814 50 Weight 95.2 kg 97.2 kg Exam: Wound VAC in place and working well. Results Laboratory Results: 04/29/20 05:30 04/26/20 05:41 04/22/20 04/22/20 04/24/20 11:46 11:46 06:02 Creatine Kinase 157 H 182 H CK-MB (CK-2) 1.35 Troponin I < 0.012 Impressions: PICC Line Insertion 04/26/20 00:00 IMPRESSION: SUCCESSFUL PLACEMENT OF A 5 FR DUAL LUMEN 37 CM PICC IN THE LEFT BASILIC VEIN. Assessment & Plan - Time Critical Time spent with patient: Less than 15 minutes Anticipated Discharge Disposition: Home with Home Health Anticipated Discharge Timeframe: within 72 hours - Plan Summary Plan Summary: Continue with wound VAC at home. Follow up at the wound care center in 2 weeks. We will sign off.
[2020-04-30] MEDS: ATORVASTATIN CALCIUM 40 MG TABLET PO SCH (22:27)
[2020-05-01] MEDS: MEROPENEM 1 GM in NORMAL SALINE 50 ML IV SCH ×3 (03:23→17:48)
[2020-05-01] MEDS: INSULIN LISPRO 100 UNIT/ML 3 ML VIAL SUBCUT SCH ×7 (08:07→22:51)
[2020-05-01] MEDS: INSULIN GLARGINE,HUM.REC.ANLOG 1,000 UNIT/10 ML VIAL SUBCUT SCH ×2 (08:39→22:54)
--- NOTE | 2020-05-01 10:19 | Progress Note ---
Provider Note Provider Note: Unfortunately home infusion and home health were unable to be arranged for this patient. We will continue to try and arrange the services. The wound care center will be seeing the patient since she will require weekly assessments and debridements as well as the fact that this is a difficult VAC dressing based on its location. We will continue the patient's meropenem and wound care as well as her other medications but the discharge will need to be delayed.
[2020-05-01] MEDS: DOCUSATE SODIUM 100 MG CAPSULE PO SCH (10:21)
--- NOTE | 2020-05-01 10:22 | PDOC PROGRESS REPORT ---
Subjective Progress Note for:: 05/01/20 Subjective:: The patient informed me that a leak in the dressing but was repaired. Developed it is in the same area as when the initial dressing was applied. She is still having some discomfort. Reason For Visit: DKA,THIGH ABSCESS Physical Exam Vital Signs: Temp Pulse Resp BP Pulse Ox 97.9 F 87 19 125/63 96 05/01/20 07:49 05/01/20 07:49 05/01/20 07:49 05/01/20 07:49 05/01/20 07:49 Intake & Output 04/30/20 05/01/20 05/02/20 06:59 06:59 06:59 Intake Total 864 400 Output Total 50 475 Balance 814 -75 Weight 97.2 kg 95.1 kg General appearance: PRESENT: no acute distress, cooperative, well-developed Head exam: PRESENT: atraumatic, normocephalic Ear exam: PRESENT: normal external ear exam. ABSENT: bleeding, drainage Mouth exam: PRESENT: moist, tongue midline Neck exam: PRESENT: full ROM. ABSENT: JVD, lymphadenopathy Respiratory exam: PRESENT: clear to auscultation blanca, symmetrical, unlabored. ABSENT: accessory muscle use, prolonged expiratory phas, rales, rhonchi, tachypnea, wheezes Cardiovascular exam: PRESENT: RRR, +S1, +S2. ABSENT: bradycardia, diastolic murmur, irregular rhythm, systolic murmur, tachycardia GI/Abdominal exam: PRESENT: normal bowel sounds, soft. ABSENT: distended, guarding, tenderness Rectal exam: PRESENT: deferred Gentrourinary exam: ABSENT: indwelling catheter Extremities exam: PRESENT: full ROM. ABSENT: joint swelling, pedal edema Musculoskeletal exam: PRESENT: ambulatory, normal inspection. ABSENT: deformity, dislocation Neurological exam: PRESENT: alert, awake, oriented to person, oriented to place, oriented to time, oriented to situation, CN II-XII grossly intact. ABSENT: altered, motor sensory deficit Psychiatric exam: PRESENT: appropriate affect. ABSENT: agitated, anxious Focused psych exam: ABSENT: delusional, paranoid, restlessness Skin exam: PRESENT: dry, normal color, warm, other - Wound VAC dressing right groin. ABSENT: rash Results Laboratory Results: 04/29/20 05:30 04/26/20 05:41 04/22/20 04/22/20 04/24/20 11:46 11:46 06:02 Creatine Kinase 157 H 182 H CK-MB (CK-2) 1.35 Troponin I < 0.012 Impressions: PICC Line Insertion 04/26/20 00:00 IMPRESSION: SUCCESSFUL PLACEMENT OF A 5 FR DUAL LUMEN 37 CM PICC IN THE LEFT BASILIC VEIN. Assessment and Plan - Diagnosis (1) Necrotizing fasciitis Is this a current diagnosis for this admission?: Yes Plan: Large wound (12 x 4 x 6 inches) in the right groin. Currently with negative pressure dressing. Antibiotics through tomorrow. Arranging for follow-up at the wound care center as well. Follow-up at surgery in approximately 2 weeks. 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 I am increasing the morning Lantus by 4 units. Continue Accu-Cheks and sliding sc marquise. (3) Iron (Fe) deficiency anemia Qualifiers: Iron deficiency anemia type: unspecified iron deficiency Qualified Code(s): D50.9 - Iron deficiency anemia, unspecified Is this a current diagnosis for this admission?: Yes Plan: Continue to monitor. Will discuss further regarding the patient sulfa allergy. If she has been on ferrous sulfate before I will restart this medication. (4) Hypertension Qualifiers: Hypertension type: essential hypertension Qualified Code(s): I10 - Essential (primary) hypertension Is this a current diagnosis for this admission?: Yes Plan: Now that hypotension has resolved the patient is on 50 mg of losartan daily (5) Hyperlipidemia Qualifiers: Hyperlipidemia type: unspecified Qualified Code(s): E78.5 - Hyperlipidemia, unspecified Is this a current diagnosis for this admission?: Yes Plan: Continue atorvastatin. May be related to diabetes. (6) Hypotension Qualifiers: Hypotension type: other hypotension type Qualified Code(s): I95.89 - Other hypotension Is this a current diagnosis for this admission?: Yes Plan: Resolved (7) Tachycardia Is this a current diagnosis for this admission?: Yes Plan: Resolved - Time Time Spent with patient: 15-24 minutes Medications reviewed and adjusted accordingly: Yes Anticipated Discharge Disposition: Home with Home Health Anticipated Discharge Timeframe: within 48 hours
[2020-05-01] MEDS: LOSARTAN POTASSIUM 50 MG TABLET PO SCH (10:23)
[2020-05-01] MEDS: ENOXAPARIN SODIUM INJ 40 MG/0.4 ML DISP.SYRIN SUBCUT SCH (10:24)
[2020-05-01] MEDS: NORMAL SALINE 10 ML SDV (SCHEDULED) IV SCH ×2 (11:23→22:52)
[2020-05-01] MEDS ORDERED: INSULIN GLARGINE,HUM.REC.ANLOG 1,000 UNIT/10 ML VIAL (PYX) SUBCUT ONE (22:46)
[2020-05-01] MEDS: ATORVASTATIN CALCIUM 40 MG TABLET PO SCH (22:52)
[2020-05-02] MEDS: MEROPENEM 1 GM in NORMAL SALINE 50 ML IV SCH ×3 (02:42→18:24)
[2020-05-02] MEDS: INSULIN LISPRO 100 UNIT/ML 3 ML VIAL SUBCUT SCH ×7 (07:47→22:15)
[2020-05-02] MEDS: INSULIN GLARGINE,HUM.REC.ANLOG 1,000 UNIT/10 ML VIAL SUBCUT SCH ×2 (07:48→22:09)
[2020-05-02] MEDS: ENOXAPARIN SODIUM INJ 40 MG/0.4 ML DISP.SYRIN SUBCUT SCH (10:14)
[2020-05-02] MEDS: LOSARTAN POTASSIUM 50 MG TABLET PO SCH (10:15)
[2020-05-02] MEDS: DOCUSATE SODIUM 100 MG CAPSULE PO SCH (10:22)
[2020-05-02] MEDS: NORMAL SALINE 10 ML SDV (SCHEDULED) IV SCH ×2 (10:22→22:08)
--- NOTE | 2020-05-02 11:22 | PDOC PROGRESS REPORT ---
Subjective Progress Note for:: 05/02/20 Reason For Visit: DKA,THIGH ABSCESS Physical Exam Vital Signs: Temp Pulse Resp BP Pulse Ox 98.0 F 65 16 123/59 L 95 05/02/20 04:25 05/02/20 07:00 05/02/20 04:25 05/02/20 04:25 05/02/20 04:25 Intake & Output 05/01/20 05/02/20 05/03/20 06:59 06:59 06:59 Intake Total 400 942 Output Total 475 1400 Balance -75 -458 Weight 95.1 kg 95 kg Results Laboratory Results: 04/29/20 05:30 04/26/20 05:41 04/22/20 04/22/20 04/24/20 11:46 11:46 06:02 Creatine Kinase 157 H 182 H CK-MB (CK-2) 1.35 Troponin I < 0.012 Impressions: PICC Line Insertion 04/26/20 00:00 IMPRESSION: SUCCESSFUL PLACEMENT OF A 5 FR DUAL LUMEN 37 CM PICC IN THE LEFT BASILIC VEIN. 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
--- NOTE | 2020-05-02 17:23 | PDOC PROGRESS REPORT ---
Subjective Progress Note for:: 05/02/20 Subjective:: Patient is resting comfortably. Another leak occurred at the inferior end of the VAC dressing. It was successfully patched but with a large amount of drape. Reason For Visit: DKA,THIGH ABSCESS Physical Exam Vital Signs: Temp Pulse Resp BP Pulse Ox 98.5 F 97 17 136/61 H 92 05/02/20 11:12 05/02/20 14:00 05/02/20 11:12 05/02/20 11:12 05/02/20 11:12 Intake & Output 05/01/20 05/02/20 05/03/20 06:59 06:59 06:59 Intake Total 400 942 50 Output Total 475 1400 Balance -75 -458 50 Weight 95.1 kg 95 kg General appearance: PRESENT: no acute distress, cooperative, well-developed Head exam: PRESENT: atraumatic, normocephalic Eye exam: PRESENT: conjunctiva pale. ABSENT: scleral icterus Ear exam: PRESENT: normal external ear exam. ABSENT: bleeding, drainage Mouth exam: PRESENT: moist, tongue midline Respiratory exam: PRESENT: clear to auscultation blanca, symmetrical, unlabored. ABSENT: rales, rhonchi, tachypnea, wheezes Cardiovascular exam: PRESENT: RRR, +S1, +S2. ABSENT: bradycardia, diastolic murmur, irregular rhythm, systolic murmur, tachycardia GI/Abdominal exam: PRESENT: normal bowel sounds, soft. ABSENT: distended, gu arding, tenderness Rectal exam: PRESENT: deferred Gentrourinary exam: ABSENT: indwelling catheter Extremities exam: ABSENT: pedal edema Musculoskeletal exam: PRESENT: ambulatory, normal inspection. ABSENT: deformity, dislocation Neurological exam: PRESENT: alert, awake, oriented to person, oriented to place, oriented to time, oriented to situation, CN II-XII grossly intact. ABSENT: altered, motor sensory deficit Psychiatric exam: PRESENT: appropriate affect. ABSENT: agitated, anxious Focused psych exam: ABSENT: delusional, paranoid, restlessness Skin exam: PRESENT: dry, warm, other - VAC dressing right inner thigh/right groin. ABSENT: rash Results Laboratory Results: 04/29/20 05:30 04/26/20 05:41 04/22/20 04/22/20 04/24/20 11:46 11:46 06:02 Creatine Kinase 157 H 182 H CK-MB (CK-2) 1.35 Troponin I < 0.012 Impressions: PICC Line Insertion 04/26/20 00:00 IMPRESSION: SUCCESSFUL PLACEMENT OF A 5 FR DUAL LUMEN 37 CM PICC IN THE LEFT BASILIC VEIN. Assessment and Plan - Diagnosis (1) Necrotizing fasciitis Is this a current diagnosis for this admission?: Yes Plan: Continue meropenem through May 03. Continue negative pressure dressing with changes on Wednesday, Wednesday and Wednesday. Referral to wound care center and follow-up with general surgery. 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 (4) Hypertension Qualifiers: Hypertension type: essential hypertension Qualified Code(s): I10 - [facility] l (primary) hypertension Is this a current diagnosis for this admission?: Yes Plan: Reasonable blood pressure control on losartan 50 mg daily (5) Hyperlipidemia Qualifiers: Hyperlipidemia type: unspecified Qualified Code(s): E78.5 - Hyperlipidemia, unspecified Is this a current diagnosis for this admission?: Yes Plan: Continue atorvastatin 40 mg daily (6) Hypotension Qualifiers: Hypotension type: other hypotension type Qualified Code(s): I95.89 - Other hypotension Is this a current diagnosis for this admission?: Yes Plan: Resolved (7) Tachycardia Is this a current diagnosis for this admission?: Yes Plan: Resolved - Time Time Spent with patient: 15-24 minutes Medications reviewed and adjusted accordingly: Yes Anticipated Discharge Disposition: Home with Home Health Anticipated Discharge Timeframe: within 48 hours
[2020-05-02] MEDS: OXYCODONE-ACETAMINOPHEN 5-325 MG TABLET PO PRN (18:25)
[2020-05-02] MEDS: ATORVASTATIN CALCIUM 40 MG TABLET PO SCH (22:07)
[2020-05-03] MEDS: MEROPENEM 1 GM in NORMAL SALINE 50 ML IV SCH (01:53)
[2020-05-03 08:04] LABS: BLOOD UREA NITROGEN 15 mg/dL (7-20); CALCIUM 8.4 mg/dL (8.4-10.2); GLUCOSE 149 mg/dL (75-110); POTASSIUM 4.6 mmol/L (3.6-5.0)
[2020-05-03 08:07] LABS: ABSOLUTE EOSINOPHILS # (AUTO) 0.1 10^3/uL (0.0-0.6); ABSOLUTE LYMPHOCYTES (AUTO) 1.4 10^3/uL (0.5-4.7); ABSOLUTE MONOCYTES (AUTO) 0.4 10^3/uL (0.1-1.4); BASOPHILS % (AUTO) 0.8 % (0-2); EOSINOPHILS % (AUTO) 1.7 % (0-6); HEMATOCRIT 29.5 % (36.0-47.0); HEMOGLOBIN 9.4 g/dL (12.0-15.5); LYMPHOCYTES % (AUTO) 23.1 % (13-45); MEAN CORPUSCULAR HGB CONC 31.9 g/dL (32.0-36.0); MEAN CORPUSCULAR VOLUME 69 fl (80-97); MONOCYTES % (AUTO) 7.2 % (3-13); PLATELET COUNT 256 10^3/uL (150-450); RED BLOOD COUNT 4.27 10^6/uL (3.72-5.28); RED CELL DISTRIBUTION WIDTH 25.5 % (11.5-14.0); SEGMENTED NEUTROPHILS % (AUTO) 67.2 % (42-78); TOTAL CELLS COUNTED % (AUTO) 100 %; WHITE BLOOD COUNT 5.9 10^3/uL (4.0-10.5)
[2020-05-03 08:09] LABS: ANION GAP 5 (5-19); CARBON DIOXIDE 30 mmol/L (22-30); CHLORIDE 101 mmol/L (98-107)
[2020-05-03 08:20] LABS: ANISOCYTOSIS 3+; HYPOCHROMASIA 1+; OVALOCYTES 2+; PLATELET COMMENT ADEQUATE; POIKILOCYTOSIS 2+; POLYCHROMASIA 1+; TEAR DROP CELLS SLIGHT
[2020-05-03] MEDS: DOCUSATE SODIUM 100 MG CAPSULE PO SCH (09:02)
[2020-05-03] MEDS: INSULIN LISPRO 100 UNIT/ML 3 ML VIAL SUBCUT SCH ×8 (09:02→21:04)
[2020-05-03] MEDS: NORMAL SALINE 10 ML SDV (SCHEDULED) IV SCH ×2 (09:03→21:06)
[2020-05-03] MEDS: ENOXAPARIN SODIUM INJ 40 MG/0.4 ML DISP.SYRIN SUBCUT SCH (09:47)
[2020-05-03] MEDS: INSULIN GLARGINE,HUM.REC.ANLOG 1,000 UNIT/10 ML VIAL SUBCUT SCH ×2 (09:48→20:55)
[2020-05-03] MEDS: LOSARTAN POTASSIUM 50 MG TABLET PO SCH (12:35)
[2020-05-03] MEDS ORDERED: HYDROMORPHONE HCL INJ/PF 2 MG/ML AMPULE IV PRN (13:02)
--- NOTE | 2020-05-03 13:34 | PDOC PROGRESS REPORT ---
Subjective Progress Note for:: 05/03/20 Subjective:: The patient has developed significant redness and itching. It is the worst on the right thigh adjacent to the wound. There is some on the left thigh. She also has developed redness and itching under the electrode leads. This morning on exam the inferior portion of the back was in fact open to air. Somehow the negative pressure still showed a good seal. Reason For Visit: DKA,THIGH ABSCESS Physical Exam Vital Signs: Temp Pulse Resp BP Pulse Ox 98.2 F 92 12 97/70 L 99 05/03/20 12:26 05/03/20 12:26 05/03/20 12:26 05/03/20 12:26 05/03/20 12:26 Intake & Output 05/02/20 05/03/20 05/04/20 06:59 06:59 06:59 Intake Total 942 1481 600 Output Total 1400 Balance -458 1481 600 Weight 95 kg 94.1 kg General appearance: PRESENT: cooperative, well-developed, other - Moderate distress Head exam: PRESENT: atraumatic, normocephalic Ear exam: PRESENT: normal external ear exam. ABSENT: bleeding, drainage Mouth exam: PRESENT: moist, tongue midline Respiratory exam: PRESENT: clear to auscultation blanca, symmetrical, unlabored. ABSENT: rales, rhonchi, tachypnea, wheezes Cardiovascular exam: PRESENT: RRR, +S1, +S2. ABSENT: bradycardia, diastolic murmur, systolic murmur, tachycardia GI/Abdominal exam: PRESENT: normal bowel sounds, soft. ABSENT: distended, tenderness Rectal exam: PRESENT: deferred Gentrourinary exam: ABSENT: indwelling catheter Extremities exam: ABSENT: pedal edema Musculoskeletal exam: PRESENT: ambulatory, normal inspection Neurological exam: PRESENT: alert, awake, oriented to person, oriented to place, oriented to time, oriented to situation, CN II-XII grossly intact. ABSENT: altered, motor sensory deficit Psychiatric exam: PRESENT: appropriate affect. ABSENT: agitated, anxious Focused psych exam: ABSENT: delusional, paranoid, restlessness Skin exam: PRESENT: erythema - Marked erythema on the inside of the right thigh. Its outline mimicked where the drape was attached. On the inner left thigh and groin area there is a pinkish discolored irritation. On the chest there are small areas of blotchy erythema consistent with the attachment of EKG/telemetry leads. Results Laboratory Results: 05/03/20 06:58 05/03/20 06:58 05/03/20 05/03/20 06:58 06:58 WBC 5.9 RBC 4.27 Hgb 9.4 L Hct 29.5 L MCV 69 L MCH 22.0 L MCHC 31.9 L RDW 25.5 H Plt Count 256 Seg Neutrophils % 67.2 Sodium 136.4 L Potassium 4.6 Chloride 101 Carbon Dioxide 30 Anion Gap 5 BUN 15 Creatinine 0.80 Est GFR ( Amer) > 60 Glucose 149 H Calcium 8.4 04/22/20 04/22/20 04/24/20 11:46 11:46 06:02 Creatine Kinase 157 H 182 H CK-MB (CK-2) 1.35 Troponin I < 0.012 Impressions: PICC Line Insertion 04/26/20 00:00 IMPRESSION: SUCCESSFUL PLACEMENT OF A 5 FR DUAL LUMEN 37 CM PICC IN THE LEFT BASILIC VEIN. Assessment and Plan - Diagnosis (1) Necrotizing fasciitis Is this a current diagnosis for this admission?: Yes Plan: There is been great difficulty keeping the VAC in place. It looks like a contact dermatitis has erupted as well. We will need to do saline moist gauze changes daily or twice daily based on saturation. Once the skin settles we can attempt negative pressure therapy again. 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 I will need to increase the morning Lantus if this continues. (3) Iron (Fe) deficiency anemia Qualifiers: Iron deficiency anemia type: unspecified iron deficiency Qualified Code(s): D50.9 - Iron deficiency anemia, unspecified Is this a current diagnosis for this admission?: Yes Plan: Hemoglobin has been relatively stable (4) Hypertension Qualifiers: Hypertension type: essential hypertension Qualified Code(s): I10 - Essential (primary) hypertension Is this a current diagnosis for this admission?: Yes Plan: Good blood pressure control. Continue current regimen. (5) Hyperlipidemia Qualifiers: Hyperlipidemia type: unspecified Qualified Code(s): E78.5 - Hyperlipidemia, unspecified Is this a current diagnosis for this admission?: Yes Plan: Continue statin therapy (6) Hypotension Qualifiers: Hypotension type: other hypotension type Qualified Code(s): I95.89 - Other hypotension Is this a current diagnosis for this admission?: Yes Plan: Resolved (7) Tachycardia Is this a current diagnosis for this admission?: Yes Plan: Resolved (8) Contact dermatitis due to adhesive bandage Is this a current diagnosis for this admission?: Yes Plan: Because of the moisture prone areas in the groin I am going to apply Lotrisone cream. We will use Benadryl to help control the itching and reverse the dermatitis. This significantly complicates the use of the negative pressure dressing. We will need to wait until the skin improved somewhat before attempting reapplication of the VAC - Time Time Spent with patient: 15-24 minutes Anticipated Discharge Disposition: Home with Home Health Anticipated Discharge Timeframe: within 72 hours
[2020-05-03] MEDS ORDERED: LIDOCAINE 1.5% INJ-MPF (15 MG/ML) 20 ML AMPUL INJ ONE (14:00)
[2020-05-03] MEDS: DIPHENHYDRAMINE HCL 25 MG CAPSULE PO PRN (17:28)
[2020-05-03] MEDS: CLOTRIMAZOLE/BETAMETHASONE DIP CREAM 15 GM TOP SCH ×3 (17:29→21:07)
[2020-05-03] MEDS: ATORVASTATIN CALCIUM 40 MG TABLET PO SCH (21:04)
[2020-05-04] MEDS: HYDROMORPHONE HCL INJ/PF 2 MG/ML AMPULE IV PRN ×2 (03:31→12:11)
[2020-05-04] MEDS: DIPHENHYDRAMINE HCL 25 MG CAPSULE PO PRN ×2 (04:01→16:56)
[2020-05-04] MEDS: INSULIN LISPRO 100 UNIT/ML 3 ML VIAL SUBCUT SCH ×7 (08:14→22:20)
[2020-05-04] MEDS: INSULIN GLARGINE,HUM.REC.ANLOG 1,000 UNIT/10 ML VIAL SUBCUT SCH ×2 (08:19→22:20)
[2020-05-04] MEDS: DOCUSATE SODIUM 100 MG CAPSULE PO SCH (09:01)
[2020-05-04] MEDS: ENOXAPARIN SODIUM INJ 40 MG/0.4 ML DISP.SYRIN SUBCUT SCH (09:27)
[2020-05-04] MEDS: NORMAL SALINE 10 ML SDV (AFTER EACH USE) IV PRN ×2 (09:28→12:12)
[2020-05-04] MEDS: LOSARTAN POTASSIUM 50 MG TABLET PO SCH (09:28)
[2020-05-04] MEDS: NORMAL SALINE 10 ML SDV (SCHEDULED) IV SCH ×2 (09:28→22:21)
[2020-05-04] MEDS: CLOTRIMAZOLE/BETAMETHASONE DIP CREAM 15 GM TOP SCH ×2 (09:29→22:22)
--- NOTE | 2020-05-04 13:54 | PDOC PROGRESS REPORT ---
Subjective Progress Note for:: 05/04/20 Subjective:: The saline gauze dressings are much easier on the patient with regard to pain. She also has greater movement. With the skin this irritated we will likely discharge with saline moist gauze dressings and as soon as the skin improves resume therapy with the VAC dressings. She reports to me that there is no one home to help with dressing changes however she reported to case management that her daughters would help. Reason For Visit: DKA,THIGH ABSCESS Physical Exam Vital Signs: Temp Pulse Resp BP Pulse Ox 98.3 F 78 17 122/46 L 96 05/04/20 11:27 05/04/20 11:27 05/04/20 11:27 05/04/20 11:27 05/04/20 11:27 Intake & Output 05/03/20 05/04/20 05/05/20 06:59 06:59 06:59 Intake Total 1481 600 Balance 1481 600 Weight 94.1 kg 92.6 kg General appearance: PRESENT: no acute distress, cooperative, well-developed Head exam: PRESENT: atraumatic, normocephalic Eye exam: PRESENT: conjunctiva pink. ABSENT: scleral icterus Ear exam: PRESENT: normal external ear exam. ABSENT: bleeding, drainage Mouth exam: PRESENT: moist, neck supple, tongue midline Respiratory exam: PRESENT: clear to auscultation blanca, symmetrical, unlabored. ABSENT: rales, rhonchi, tachypnea, wheezes Cardiovascular exam: PRESENT: RRR, +S1, +S2 GI/Abdominal exam: PRESENT: normal bowel sounds, soft. ABSENT: distended, guarding, tenderness Rectal exam: PRESENT: deferred Gentrourinary exam: ABSENT: indwelling catheter Extremities exam: ABSENT: pedal edema Musculoskeletal exam: PRESENT: ambulatory, normal inspection. ABSENT: deformity, dislocation Neurological exam: PRESENT: alert, awake, oriented to person, oriented to place, oriented to time, oriented to situation, CN II-XII grossly intact. ABSENT: altered, motor sensory deficit Psychiatric exam: PRESENT: appropriate affect. ABSENT: agitated, anxious Focused psych exam: ABSENT: delusional, paranoid, restlessness Skin exam: PRESENT: erythema - The dermatitis in the groin is starting to fade but still prominent., other - Large open surgical wound right groin Results Laboratory Results: 05/03/20 06:58 05/03/20 06:58 04/22/20 04/22/20 04/24/20 11:46 11:46 06:02 Creatine Kinase 157 H 182 H CK-MB (CK-2) 1.35 Troponin I < 0.012 Impressions: PICC Line Insertion 04/26/20 00:00 IMPRESSION: SUCCESSFUL PLACEMENT OF A 5 FR DUAL LUMEN 37 CM PICC IN THE LEFT BASILIC VEIN. Assessment and Plan - Diagnosis (1) Necrotizing fasciitis Is this a current diagnosis for this admission?: Yes Plan: Antibiotic therapy is completed for the infection. Aggressive wound care and reclosing the wound are anticipated. (2) Contact dermatitis due to adhesive bandage Is this a current diagnosis for this admission?: Yes Plan: The patient developed severe erythema and itching at the electrode lead sites on her chest as well as bilateral groin. The right groin especially reflected the adhesive as the source since the redness was symmetric with the VAC drape that was applied. They have been applying Lotrisone cream as the area is prone to yeast infection as well. As the skin improves then reapplication of the VAC dressing is anticipated. She has Benadryl for itching. 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 I will increase the morning Lantus to 46 units. (4) Iron (Fe) deficiency anemia Qualifiers: Iron deficiency anemia type: unspecified iron deficiency Qualified Code(s): D50.9 - Iron deficiency anemia, unspecified Is this a current diagnosis for this admission?: Yes Plan: Hemoglobin has been stable. (5) Hypertension Qualifiers: Hypertension type: essential hypertension Qualified Code(s): I10 - Essential (primary) hypertension Is this a current diagnosis for this admission?: Yes Plan: Excellent control on her losartan 50 mg daily (6) Hyperlipidemia Qualifiers: Hyperlipidemia type: unspecified Qualified Code(s): E78.5 - Hyperlipidemia, unspecified Is this a current diagnosis for this admission?: Yes Plan: Continue atorvastatin (7) Hypotension Qualifiers: Hypotension type: other hypotension type Qualified Code(s): I95.89 - Other hypotension Is this a current diagnosis for this admission?: Yes Plan: Resolved (8) Tachycardia Is this a current diagnosis for this admission?: Yes Plan: Resolved - Time Time Spent with patient: Less than 15 minutes Medications reviewed and adjusted accordingly: Yes Anticipated Discharge Disposition: Home, Self Care Anticipated Discharge Timeframe: within 48 hours
[2020-05-04] MEDS: ATORVASTATIN CALCIUM 40 MG TABLET PO SCH (22:21)
[2020-05-05] MEDS: HYDROMORPHONE HCL INJ/PF 2 MG/ML AMPULE IV PRN ×2 (05:02→17:51)
[2020-05-05] MEDS ORDERED: INSULIN GLARGINE,HUM.REC.ANLOG 1,000 UNIT/10 ML VIAL SUBCUT SCH (08:00)
[2020-05-05] MEDS: INSULIN LISPRO 100 UNIT/ML 3 ML VIAL SUBCUT SCH ×6 (09:14→17:15)
[2020-05-05] MEDS: DOCUSATE SODIUM 100 MG CAPSULE PO SCH (09:28)
[2020-05-05] MEDS: LOSARTAN POTASSIUM 50 MG TABLET PO SCH (09:28)
[2020-05-05] MEDS: NORMAL SALINE 10 ML SDV (AFTER EACH USE) IV PRN (09:31)
[2020-05-05] MEDS: NORMAL SALINE 10 ML SDV (SCHEDULED) IV SCH (09:31)
[2020-05-05] MEDS: CLOTRIMAZOLE/BETAMETHASONE DIP CREAM 15 GM TOP SCH (11:15)
[2020-05-05] MEDS: ENOXAPARIN SODIUM INJ 40 MG/0.4 ML DISP.SYRIN SUBCUT SCH (11:16)
--- NOTE | 2020-05-05 14:22 | PDOC DISCHARGE SUMMARY ---
Impression - Admit/DC Date/PCP Admission Date/Primary Care Provider: 04/22/20 15:13 JAZMIN ANAYA MD Discharge Date: 05/05/20 - Discharge Diagnosis (1) Necrotizing fasciitis Is this a current diagnosis for this admission?: Yes (2) Contact dermatitis due to adhesive bandage Is this a current diagnosis for this admission?: Yes (3) Hyperglycemia due to type 2 diabetes mellitus Is this a current diagnosis for this admission?: Yes (4) Iron (Fe) deficiency anemia Is this a current diagnosis for this admission?: Yes (5) Hypertension Is this a current diagnosis for this admission?: Yes (6) Hyperlipidemia Is this a current diagnosis for this admission?: Yes (7) Hypotension Is this a current diagnosis for this admission?: Yes (8) Tachycardia Is this a current diagnosis for this admission?: Yes - Additional Information Resuscitation Status: Full Code Discharge Diet: Cardiac, Diabetic Discharge Activity: Activity As Tolerated, Balance Activity w/Rest Referrals: WOUND CARE [Outside] - 05/10/20 10:00 am JAZMIN ANAYA MD [Primary Care Provider] - 05/06/20 10:00 am Prescriptions: Clotrimazole/Betamethasone Dip [Lotrisone Cream 15 gm] 1 applic TOP Q12 #45 gm Tramadol HCl [Ultram 50 mg Tablet] 50 mg PO ASDIR PRN #20 tablet PRN Reason: For Pain Home Medications: Atorvastatin Calcium [Lipitor 40 mg Tablet] 40 mg PO QAM 04/22/20 Furosemide [Lasix 40 mg Tablet] 40 mg PO QAM 04/22/20 Glimepiride [Amaryl 4 mg Tablet] 4 mg PO QAMPM 04/22/20 Insulin Glargine,Hum.rec.anlog [Lantus Insulin 100 Unit/mL Insulin Pen] 40 unit SUBCUT QAM 04/22/20 Telmisartan/Hydrochlorothiazid [Telmisartan-Hctz 40-12.5 mg Tb] 1 each PO QAM 04/22/20 Acetaminophen [Tylenol 325 mg Tablet] 650 mg PO Q4HP PRN tablet 04/30/20 Atorvastatin Calcium [Lipitor 40 mg Tablet] 40 mg PO QHS tablet 04/30/20 Insulin Glargine,Hum.rec.anlog [Lantus Insulin 100 Unit/1 ml 10 ml] 20 unit SUBCUT QPM unit 04/30/20 Insulin Glargine,Hum.rec.anlog [Lantus Insulin 100 Unit/1 ml 10 ml] 40 unit SUBCUT QAM unit 04/30/20 Insulin Lispro [Humalog Insulin (Lispro) 100 unit/mL] 7 unit SUBCUT AC unit 04/30/20 Clotrimazole/Betamethasone Dip [Lotrisone Cream 15 gm] 1 applic TOP Q12 #45 gm 05/05/20 Diphenhydramine HCl [Benadryl 25 mg Capsule] 25 mg PO Q4HP PRN capsule 05/05/20 Tramadol HCl [Ultram 50 mg Tablet] 50 mg PO ASDIR PRN #20 tablet 05/05/20 History of Present Illiness History of Present Illness: SENAIT BISHOP is a 54 year old female with history of diabetes mellitus type 2, hypertension, who presents to the hospital with complaints of pain swelling and induration in her right thigh/perineal area. This has been present for the past few days and progressive. She describes it as a boil. Denies any drainage from the area but notes that is quite tender. Denies any trauma to the area. She has also noted that her sugars have been running high at home. She denies noncompliance with her insulin regimen. Denies any shortness of breath, chest pain cough nausea vomiting. Does however admit some dry heaves earlier today. Hospital Course Hospital Course: The patient was found to have an abscess in the groin. Upon surgical debridement necrotizing fasciitis was present. She had 2 surgeries I believe. It was polymicrobial with anaerobic bacteria as well as enterococcus. They would all be sensitive to Unasyn however the patient has a penicillin allergy. She is tolerating her meropenem. We are trying to arrange home IV antibiotics and follow-up with the wound care center. The patient will need weekly debridements and close monitoring of her negative pressure wound therapy. She does have a significant amount of pain with dressing changes. Because of the location so close to the inguinal fold skin moisture is creating a problem with maintaining a good seal. Physical Exam Vital Signs: Temp Pulse Resp BP Pulse Ox 98.1 F 86 16 105/48 L 96 05/05/20 11:12 05/05/20 11:12 05/05/20 11:12 05/05/20 11:12 05/05/20 11:12 Intake & Output 05/04/20 05/05/20 05/06/20 06:59 06:59 06:59 Intake Total 600 606 Balance 600 606 Weight 92.6 kg 91.6 kg General appearance: PRESENT: mild distress Respiratory exam: PRESENT: clear to auscultation [place], symmetrical, unlabored. ABSENT: rales, rhonchi, tachypnea, wheezes Cardiovascular exam: PRESENT: RRR, +S1, +S2. ABSENT: bradycardia, diastolic murmur, irregular rhythm, systolic murmur, tachycardia GI/Abdominal exam: PRESENT: normal bowel sounds, soft. ABSENT: distended, tenderness Musculoskeletal exam: PRESENT: other - very large wound on inner groin right side Neurological exam: PRESENT: alert, awake Results Laboratory Results: WBC 5.9 10^3/uL (4.0-10.5) 05/03/20 06:58 RBC 4.27 10^6/uL (3.72-5.28) 05/03/20 06:58 Hgb 9.4 g/dL (12.0-15.5) L 05/03/20 06:58 Hct 29.5 % (36.0-47.0) L 05/03/20 06:58 MCV 69 fl (80-97) L 05/03/20 06:58 MCH 22.0 pg (27.0-33.4) L 05/03/20 06:58 MCHC 31.9 g/dL (32.0-36.0) L 05/03/20 06:58 RDW 25.5 % (11.5-14.0) H 05/03/20 06:58 Plt Count 256 10^3/uL (150-450) 05/03/20 06:58 Lymph % (Auto) 23.1 % (13-45) 05/03/20 06:58 [place] % (Auto) 7.2 % (3-13) 05/03/20 06:58 Eos % (Auto) 1.7 % (0-6) 05/03/20 06:58 Baso % (Auto) 0.8 % (0-2) 05/03/20 06:58 Reticulocyte # 0.077 10^6/uL (0.028-0.122) 04/23/20 06:20 Absolute Neuts (auto) 4.0 10^3/uL (1.7-8.2) 05/03/20 06:58 Absolute Lymphs (auto) 1.4 10^3/uL (0.5-4.7) 05/03/20 06:58 Absolute Monos (auto) 0.4 10^3/uL (0.1-1.4) 05/03/20 06:58 Absolute Eos (auto) 0.1 10^3/uL (0.0-0.6) 05/03/20 06:58 Absolute Basos (auto) 0.0 10^3/uL (0.0-0.2) 05/03/20 06:58 Total Counted 100 04/23/20 06:20 Seg Neutrophils % 67.2 % (42-78) 05/03/20 06:58 Seg Neuts % (Manual) 81 % (42-78) H 04/23/20 06:20 Band Neutrophils % 1 % (3-5) L 04/23/20 06:20 Lymphocytes % (Manual) 9 % (13-45) L 04/23/20 06:20 Monocytes % (Manual) 8 % (3-13) 04/23/20 06:20 Eosinophils % (Manual) 0 % (0-6) 04/23/20 06:20 Basophils % (Manual) 1 % (0-2) 04/23/20 06:20 Abs Neuts (Manual) 11.2 10^3/uL (1.7-8.2) H 04/23/20 06:20 Abs Lymphs (Manual) 1.2 10^3/uL (0.5-4.7) 04/23/20 06:20 Abs Monocytes (Manual) 1.1 10^3/uL (0.1-1.4) 04/23/20 06:20 Absolute Eos (Manual) 0.0 10^3/uL (0.0-0.6) 04/23/20 06:20 Abs Basophils (Manual) 0.1 10^3/uL (0.0-0.2) 04/23/20 06:20 Toxic Granulation SLIGHT 04/25/20 06:03 Clumped Platelets PRESENT 04/25/20 06:03 Platelet Comment ADEQUATE 05/03/20 06:58 Polychromasia 1+ 05/03/20 06:58 Hypochromasia 1+ 05/03/20 06:58 Poikilocytosis 2+ 05/03/20 06:58 Basophilic Stippling PRESENT 04/24/20 06:02 Anisocytosis 3+ 05/03/20 06:58 Microcytosis 2+ 05/03/20 06:58 Tear Drop Cells SLIGHT 05/03/20 06:58 Ovalocytes 2+ 05/03/20 06:58 [place] Cells SLIGHT 04/25/20 06:03 Retic Count (auto) 1.76 % (0.66-2.85) 04/23/20 06:20 Carbonic Acid 0.67 mmol/L (1.05-1.35) L 04/22/20 13:39 HCO3/H2CO3 Ratio 17:1 04/22/20 13:39 ABG pH 7.34 (7.35-7.45) L 04/22/20 13:39 ABG pCO2 22.1 mmHg (35-45) L 04/22/20 13:39 ABG pO2 89.1 mmHg (80-100) 04/22/20 13:39 ABG HCO3 11.6 mmol/L (20-24) L 04/22/20 13:39 ABG Total CO2 12.3 mmol/L (21-25) L 04/22/20 13:39 ABG O2 Saturation 96.6 % (94-98) 04/22/20 13:39 ABG Base Excess -12.7 mmol/L 04/22/20 13:39 FiO2 ROOM AIR 04/22/20 13:39 Sodium 136.4 mmol/L (137-145) L 05/03/20 06:58 Potassium 4.6 mmol/L (3.6-5.0) 05/03/20 06:58 Chloride 101 mmol/L (98-107) 05/03/20 06:58 Carbon Dioxide 30 mmol/L (22-30) 05/03/20 06:58 Anion Gap 5 (5-19) 05/03/20 06:58 BUN 15 mg/dL (7-20) 05/03/20 06:58 Creatinine 0.80 mg/dL (0.52-1.25) 05/03/20 06:58 Est GFR ( Amer) > 60 (>60) 05/03/20 06:58 Est GFR (MDRD) Non-Af > 60 (>60) 05/03/20 06:58 Glucose 149 mg/dL (75-110) H 05/03/20 06:58 POC Glucose 262 mg/dL (70-110) H 05/05/20 11:13 Hemoglobin A1c % 12.8 % (4.7-6.0) H 04/22/20 11:46 Lactic Acid 1.2 mmol/L (0.7-2.1) 04/22/20 12:47 Calcium 8.4 mg/dL (8.4-10.2) 05/03/20 06:58 Magnesium 1.9 mg/dL (1.6-2.3) 04/25/20 06:03 Iron < 10.1 ug/dL (37-170) L 04/23/20 06:20 TIBC 605 ug/dL (250-450) H 04/23/20 06:20 Iron Saturation UNABLE TO CALCULATE % (15% - 50%) 04/23/20 06:20 Ferritin 46.80 ng/mL (11.1-264.0) 04/23/20 06:20 Total Bilirubin 0.7 mg/dL (0.2-1.3) 04/22/20 11:46 Direct Bilirubin 0.1 mg/dL (0.0-0.4) 04/22/20 11:46 Neonat Total Bilirubin Not Reportable 04/22/20 11:46 Neonat Direct Bilirubin Not Reportable 04/22/20 11:46 Neonat Indirect Bili Not Reportable 04/22/20 11:46 AST 16 U/L (14-36) 04/22/20 11:46 ALT 11 U/L (<35) 04/22/20 11:46 Alkaline Phosphatase 95 U/L (38-126) 04/22/20 11:46 Creatine Kinase 182 U/L (30-135) H 04/24/20 06:02 CK-MB (CK-2) 1.35 ng/mL (<4.55) 04/22/20 11:46 Troponin I < 0.012 ng/mL 04/22/20 11:46 Total Protein 6.5 g/dL (6.3-8.2) 04/22/20 11:46 Albumin 3.7 g/dL (3.5-5.0) 04/22/20 11:46 Vitamin B12 > 1000.0 pg/mL (239-931) H 04/23/20 06:20 Folate 11.10 ng/mL (>2.76) 04/23/20 06:20 Urine Color STRAW 04/26/20 04:30 Urine Appearance TURBID 04/26/20 04:30 Urine pH 6.0 (5.0-9.0) 04/26/20 04:30 Ur Specific [place] 1.024 04/26/20 04:30 Urine Protein 30 mg/dL (NEGATIVE) H 04/26/20 04:30 Urine Glucose (UA) 150 mg/dL (NEGATIVE) H 04/26/20 04:30 Urine Ketones NEGATIVE mg/dL (NEGATIVE) 04/26/20 04:30 Urine Blood SMALL (NEGATIVE) H 04/26/20 04:30 Urine Nitrite NEGATIVE (NEGATIVE) 04/26/20 04:30 Urine Bilirubin NEGATIVE (NEGATIVE) 04/26/20 04:30 Urine Urobilinogen NEGATIVE mg/dL (<2.0) 04/26/20 04:30 Ur Leukocyte Esterase NEGATIVE (NEGATIVE) 04/26/20 04:30 Urine WBC (Auto) 7 /HPF 04/26/20 04:30 Urine RBC (Auto) 12 /HPF 04/26/20 04:30 U Hyaline Cast (Auto) 2 /LPF 04/22/20 13:19 Urine Bacteria (Auto) 2+ /HPF 04/26/20 04:30 Urine WBC Clumps MOD /HPF 04/26/20 04:30 Squamous Epi Cells Auto <1 /HPF 04/22/20 13:19 Urine Mucus (Auto) FEW /LPF 04/26/20 04:30 Urine Yeast (Budding) PRESENT /HPF 04/26/20 04:30 Urine Ascorbic Acid NEGATIVE (NEGATIVE) 04/26/20 04:30 Time Trough Drawn 212804/25/20 21:29 Vancomycin Trough 13.7 ug/mL (5.0-20.0) 04/25/20 21:29 SARS-CoV-2 (PCR) NEGATIVE (NEGATIVE) 04/22/20 13:39 Slides for Path Review PATHOLOGIST REVIEWED 04/22/20 11:46 Blood Type O POSITIVE 04/26/20 08:40 Antibody Screen NEGATIVE 08/14/20 08:40 Crossmatch See Detail 04/26/20 08:40 04/22/20 11:46 CK-MB (CK-2) 1.35 Troponin I < 0.012 Impressions: PICC Line Insertion 04/26/20 00:00 IMPRESSION: SUCCESSFUL PLACEMENT OF A 5 FR DUAL LUMEN 37 CM PICC IN THE LEFT BASILIC VEIN. Plan Health Concerns: Polymicrobial abscess causing necrotizing fasciitis in the right groin area. Extremely deep wound remains. The wound measures approximately 12 inches long by 4 inches wide by 6 inches deep. There are areas of fibrin deposition and nonviable tissue which will need weekly debridements and Wednesday, Wednesday and Wednesday VAC changes. Currently the VAC is at -150 mm pressure. Current dressing is a small piece of white foam deep in the wound was a larger piece of black granular foam covering. There is a bridge that allows the sensory track pad to be attached on the anterior thigh. Plan of Treatment: moist gauze tonight wound care 11 AM tomorrow Drape over ABD Goals: Complete healing of the wound. Time Spent: Greater than 30 Minutes Stroke Is this a Stroke Patient?: No Acute Heart Failure - Is this a Heart Failure Patient?: No
[2020-05-05 16:28] VITALS: BP 123/58
== END 2020-05-05 20:33 | disposition home or self-care (01) | DRG 853 ==
LOC: OROUT 11:17 → EH 15:13 → 3W 19:50
PROVIDERS: ADMIT Internal Medicine; ATTEND Hospitalist
PROC: 0KBQ0ZZ Excision of Right Upper Leg Muscle, Open Approach (ICD-10-PCS; principal; 2020-04-22 17:45)
PROC: 0KBM0ZZ Excision of Perineum Muscle, Open Approach (ICD-10-PCS; 2020-04-24)
PROC: 0KBQ0ZZ Excision of Right Upper Leg Muscle, Open Approach (ICD-10-PCS; 2020-04-24)
PROC: 02HV33Z Insertion of Infusion Device into Superior Vena Cava, Percutaneous Approach (ICD-10-PCS; 2020-04-26)
PROC: B548ZZA Ultrasonography of Superior Vena Cava, Guidance (ICD-10-PCS; 2020-04-26)
PROC: 2W0NX6Z Change Pressure Dressing on Right Upper Leg (ICD-10-PCS; 2020-04-30)
PROC: 2W06X6Z Change Pressure Dressing on Right Inguinal Region (ICD-10-PCS; 2020-04-30)
DX: A41.9 Sepsis, unspecified organism (principal); M72.6 Necrotizing fasciitis; E11.10 Type 2 diabetes mellitus with ketoacidosis without coma; L02.215 Cutaneous abscess of perineum; L02.415 Cutaneous abscess of right lower limb; E87.1 Hypo-osmolality and hyponatremia; N76.4 Abscess of vulva; E11.628 Type 2 diabetes mellitus with other skin complications; E86.0 Dehydration; E78.5 Hyperlipidemia, unspecified; R00.0 Tachycardia, unspecified; D50.9 Iron deficiency anemia, unspecified; E11.65 Type 2 diabetes mellitus with hyperglycemia; B95.2 Enterococcus as the cause of diseases classified elsewhere; B95.4 Other streptococcus as the cause of diseases classified elsewhere; I10 Essential (primary) hypertension; E87.5 Hyperkalemia; R19.7 Diarrhea, unspecified; B96.6 Bacteroides fragilis [B. fragilis] as the cause of diseases classified elsewhere; L25.8 Unspecified contact dermatitis due to other agents; Z88.2 Allergy status to sulfonamides; Z88.0 Allergy status to penicillin; Z88.6 Allergy status to analgesic agent; Z79.4 Long term (current) use of insulin; Z87.891 Personal history of nicotine dependence; Z03.818 Encounter for observation for suspected exposure to other biological agents ruled out; Z91.018 Allergy to other foods
CPT/HCPCS: 01250; 36415; 36430; 36573; 80048; 80053; 80202; 81001; 82550; 82553; 82607; 82728; 82746; 82803; 82962; 83036; 83540; 83550; 83605; 83735; 84484; 85025; 85027; 85045; 86850; 86900; 86901; 86920; 87040; 87070; 87075; 87077; 87186; 87205; 87635; 93005; 93010; 96365; 96366; 96375; 99140; 99285; C1769; C9803; J0696; J1170; J1642; J1650; J1756; J1815; J1885; J2185; J2250; J2270; J2370; J2405; J2704; J3010; J3370; J3480; J3490; J7030; J7050; J7060; J7121; P9016

== ENCOUNTER 2020-05-13 12:00 | Emergency (ER) | payer BC ==
[2020-05-13] MEDS ORDERED: NORMAL SALINE 1000 ML 1,000 ML IV ONE (14:08)
--- NOTE | 2020-05-13 14:14 | ER Document Report ---
ED GI/ - General Chief Complaint: Nausea/Vomiting/Diarrhea Stated Complaint: NAUSEA Time Seen by Provider: 05/13/20 13:54 Primary Care Provider: JAZMIN ANAYA MD [Primary Care Provider] - Follow up as needed Mode of Arrival: Ambulatory Information source: Patient Notes: Patient is a 54-year-old female presenting to the emergency department chief complaint of vomiting and weakness. She reports vomiting began 5 days ago. She reports she has generalized weakness. She states that she started having diarrhea yesterday. She denies any fever or chills, cough or congestion. She does report she has an insulin-dependent diabetic, states she was discharged about 1 week ago from our facility for DKA and also a wound infection to the groin. TRAVEL OUTSIDE OF THE [place] IN LAST 30 DAYS: No - Related Data Allergies/Adverse Reactions: codeine Allergy (Verified 05/13/20 13:57) Penicillins Allergy (Verified 05/13/20 13:57) Sulfa (Sulfonamide Antibiotics) Allergy (Verified 05/13/20 13:57) Past Medical History - General Information source: Patient - Social History Smoking Status: Former Smoker Chew tobacco use (# tins/day): No Frequency of alcohol use: None Drug Abuse: None Family History: Reviewed & Not Pertinent Patient has homicidal ideation: No - Past Medical History Cardiac Medical History: Reports: Hx Hypercholesterolemia, Hx Hypertension Endocrine Medical History: Reports: Hx Diabetes Mellitus Type 1, Hx Diabetes Mellitus Type 2 Renal/ Medical History: Denies: Hx Peritoneal Dialysis Psychiatric Medical History: Denies: Hx Depression Past Surgical History: Reports: Hx Tubal Ligation Review of Systems - Review of Systems Constitutional: Weakness EENT: No symptoms reported Cardiovascular: No symptoms reported Respiratory: No symptoms reported Gastrointestinal: Diarrhea, Nausea, Vomiting Genitourinary: No symptoms reported Female Genitourinary: No symptoms reported Musculoskeletal: No symptoms reported Skin: No symptoms reported Hematologic/Lymphatic: No symptoms reported Neurological/Psychological: No symptoms reported Physical Exam - Vital signs Vitals: Temp Pulse Resp BP Pulse Ox 97.9 F 13 L 18 123/67 99 05/13/20 13:20 05/13/20 13:20 05/13/20 13:20 05/13/20 13:20 05/13/20 13:20 - Notes Notes: PHYSICAL EXAMINATION: GENERAL: Well-appearing, well-nourished and in no acute distress. HEAD: Atraumatic, normocephalic. EYES: Pupils equal round and reactive to light, extraocular movements intact, conjunctiva are normal. ENT: Nares patent, oropharynx clear without exudates. Moist mucous membranes. NECK: Normal range of motion, supple without lymphadenopathy LUNGS: Breath sounds clear to auscultation bilaterally and equal. No wheezes rales or rhonchi. HEART: Regular rate and rhythm without murmurs ABDOMEN: Soft, nontender, nondistended abdomen. No guarding, no rebound. No masses appreciated. Female : deferred Musculoskeletal: Normal range of motion, no pitting or edema. No cyanosis. NEUROLOGICAL: Cranial nerves grossly intact. Normal speech, normal gait. Normal sensory, motor exams PSYCH: Normal mood, normal affect. SKIN: Wound VAC to right inner thigh. Course - Re-evaluation Re-evalutation: Laboratory 05/13/20 05/13/20 05/13/20 14:13 14:13 14:13 WBC 3.9 L RBC 5.21 Hgb 11.8 L Hct 36.6 MCV 70 L MCH 22.7 L MCHC 32.3 RDW 26.6 H Plt Count 294 Lymph % (Auto) 11.[address] [place] % (Auto) 10.3 Eos % (Auto) 0.0 Baso % (Auto) 0.4 Absolute Neuts (auto) 3.0 Absolute Lymphs (auto) 0.4 L Absolute Monos (auto) 0.4 Absolute Eos (auto) 0.0 Absolute Basos (auto) 0.0 Seg Neutrophils % 77.8 Platelet Comment ADEQUATE Polychromasia 1+ Hypochromasia 1+ Poikilocytosis 2+ Anisocytosis 3+ Microcytosis 2+ Ovalocytes 2+ VBG pH 7.39 VBG pCO2 43.3 VBG HCO3 25.6 VBG Base Excess 0.4 Sodium 136.1 L Potassium 4.6 Chloride 96 L Carbon Dioxide 26 Anion Gap 14 BUN 49 H Creatinine 1.50 H Est GFR ( Amer) 44 L Est GFR (MDRD) Non-Af 36 L Glucose 313 H Calcium 9.7 Total Bilirubin 0.6 Direct Bilirubin 0.4 Neonat Total Bilirubin Not Reportable Neonat Direct Bilirubin Not Reportable Neonat Indirect Bili Not Reportable AST 36 ALT 26 Alkaline Phosphatase 65 Total Protein 6.1 L Albumin 3.7 Patient appears well, nontoxic. No evidence of DKA. She reports she feels much improved after administration of antiemetics and IV fluids here in the emergency department. Her creatinine level was elevated to 1.5 in comparison with previous on file. Discussed with attending physician, Dr. arellano. Patient reports feels well enough to be discharged home. Strict ED return precautions discussed, patient verbalizes understanding and agreement with same. - Vital Signs Vital signs: Temp Pulse Resp BP Pulse Ox 98.4 F 97 16 119/64 99 05/13/20 17:45 05/13/20 17:45 05/13/20 17:45 05/13/20 17:45 05/13/20 17:45 - Laboratory Result Diagrams: 05/13/20 14:13 05/13/20 14:13 Laboratory results interpreted by me: 05/13/20 05/13/20 14:13 14:13 WBC 3.9 L Hgb 11.8 L MCV 70 L MCH 22.7 L RDW 26.6 H Lymph % (Auto) 11.5 L Absolute Lymphs (auto) 0.4 L Sodium 136.1 L Chloride 96 L BUN 49 H Creatinine 1.50 H Est GFR ( Amer) 44 L Est GFR (MDRD) Non-Af 36 L Glucose 313 H Total Protein 6.1 L Discharge - Discharge Clinical Impression: Nausea vomiting and diarrhea Condition: Stable Disposition: HOME, SELF-CARE Additional Instructions: Continue drinking plenty of fluids. Call the wound care center tomorrow, let them know you are in the emergency department today and you missed your wound care appointment. I tried calling them but unfortunately they were closed for the day. Take antinausea medication as prescribed. Follow-up with your primary care provider, call them tomorrow to schedule a follow-up appointment. Return to the emergency department with any new or worsening symptoms. Prescriptions: Promethazine HCl [Phenergan 25 mg Tablet] 1 - 2 tab PO Q6H PRN #15 tablet PRN Reason: Ondansetron [Zofran Odt 4 mg Tablet] 1 - 2 tab PO Q4H PRN #15 tab.rapdis PRN Reason: For Nausea/Vomiting Referrals: JAZMIN ANAYA MD [Primary Care Provider] - Follow up as needed
[2020-05-13 14:29] LABS: VENOUS BLOOD BASE EXCESS 0.4 mmol/L; VENOUS BLOOD HCO3 25.6 mmol/L (20-32); VENOUS BLOOD PCO2 43.3 mmHg (35-63); VENOUS BLOOD PH 7.39 (7.30-7.42)
[2020-05-13 14:34] LABS: ABSOLUTE LYMPHOCYTES (AUTO) 0.4 10^3/uL (0.5-4.7); ABSOLUTE MONOCYTES (AUTO) 0.4 10^3/uL (0.1-1.4); BASOPHILS % (AUTO) 0.4 % (0-2); HEMATOCRIT 36.6 % (36.0-47.0); HEMOGLOBIN 11.8 g/dL (12.0-15.5); LYMPHOCYTES % (AUTO) 11.5 % (13-45); MEAN CORPUSCULAR HEMOGLOBIN 22.7 pg (27.0-33.4); MEAN CORPUSCULAR HGB CONC 32.3 g/dL (32.0-36.0); MEAN CORPUSCULAR VOLUME 70 fl (80-97); MONOCYTES % (AUTO) 10.3 % (3-13); PLATELET COUNT 294 10^3/uL (150-450); RED BLOOD COUNT 5.21 10^6/uL (3.72-5.28); RED CELL DISTRIBUTION WIDTH 26.6 % (11.5-14.0); SEGMENTED NEUTROPHILS % (AUTO) 77.8 % (42-78); TOTAL CELLS COUNTED % (AUTO) 100 %; WHITE BLOOD COUNT 3.9 10^3/uL (4.0-10.5)
[2020-05-13 14:49] LABS: ALBUMIN 3.7 g/dL (3.5-5.0); ALKALINE PHOSPHATASE 65 U/L (38-126); ANION GAP 14 (5-19); ASPARTATE AMINO TRANSFERASE 36 U/L (14-36); BILIRUBIN,DIRECT 0.4 mg/dL (0.0-0.4); BILIRUBIN,TOTAL 0.6 mg/dL (0.2-1.3); BLOOD UREA NITROGEN 49 mg/dL (7-20); CALCIUM 9.7 mg/dL (8.4-10.2); CARBON DIOXIDE 26 mmol/L (22-30); CHLORIDE 96 mmol/L (98-107); GLUCOSE 313 mg/dL (75-110); POTASSIUM 4.6 mmol/L (3.6-5.0); TOTAL PROTEIN 6.1 g/dL (6.3-8.2)
[2020-05-13 14:55] LABS: ANISOCYTOSIS 3+; HYPOCHROMASIA 1+; POIKILOCYTOSIS 2+; POLYCHROMASIA 1+
[2020-05-13 14:56] LABS: OVALOCYTES 2+; PLATELET COMMENT ADEQUATE
[2020-05-13] MEDS ORDERED: ONDANSETRON ODT 4 MG TAB (6 TAB/ER DISP) PO PRN (17:13)
[2020-05-13 17:46] VITALS: BP 119/64
== END 2020-05-13 17:45 | disposition home or self-care (01) ==
LOC: ER 12:00
DX: R11.2 Nausea with vomiting, unspecified (principal); R19.7 Diarrhea, unspecified; R53.1 Weakness; I10 Essential (primary) hypertension; E11.9 Type 2 diabetes mellitus without complications; Z87.891 Personal history of nicotine dependence; Z88.6 Allergy status to analgesic agent; Z88.5 Allergy status to narcotic agent; Z88.2 Allergy status to sulfonamides; Z88.0 Allergy status to penicillin
CPT/HCPCS: 99284; 96360; 96361; 36415; 85025; 80053; 82803; J7030